=== PATIENT | male | born 1955 | race Two or more races ===

== ENCOUNTER 2021-03-30 10:50 | Emergency (ER) | payer MEDICARE, SELFPAY ==
--- NOTE | ~2021-03-30 | CT_ITS ---
EXAMINATION: CT ABDOMEN AND PELVIS WITHOUT CONTRAST CLINICAL INFORMATION: Bilateral flank pain COMPARISON: Ultrasound abdomen 01/08/2019 TECHNIQUE: Multidetector volumetric imaging was performed from the superior aspect of the liver through the pubic symphysis. Sagittal and coronal reformatted images were obtained on the technologist's workstation. This CT examination was performed using dose optimization techniques as appropriate, variously including the following: *Automated exposure control *Adjustment of mA and/or kV according to patient size (this includes techniques or standardized protocols for targeted exams where dose is matched to indication/reason for exam; i.e. extremities or head) *Use of iterative reconstruction technique DLP: 422 mGy-cm FINDINGS: LUNG BASES: The minimal linear atelectatic changes seen left lung base. The right lung base is unremarkable. The heart size is normal. LIVER, GALLBLADDER, AND BILIARY TREE: The liver is normal size with lobulated contour but normal density. No focal lesion or intrahepatic ductal dilatation seen. There are multiple radiopaque calculi seen in a small contracted gallbladder. PANCREAS: Unremarkable. SPLEEN: Unremarkable. ADRENAL GLANDS: Unremarkable. KIDNEYS AND URETERS: The kidneys are normal in size, shape, and attenuation. No hydronephrosis, hydroureter, or calculi seen. No perinephric stranding. BLADDER: There is mild anterior bladder wall thickening. No focal enhancing mass seen. GASTROINTESTINAL TRACT: Scattered stool and gas is seen throughout the colon without distention. The small bowel loops and appendix is normal caliber. The stomach is nondistended with mild thickened fall.. ABDOMINAL WALL: No significant hernia is appreciated. LYMPH NODES: There are small retroperitoneal lymph nodes visualized. VASCULAR: There is atherosclerotic calcification of abdominal aorta and common iliac vessels. PELVIC VISCERA: The prostate gland is normal size with central gland calcification. OSSEOUS STRUCTURES: No lytic or sclerotic process seen. There is an old healed fracture left L3 transverse process. CT/CT abdomen pelvis wo con IMPRESSION: No radiopaque urolith or hydroureteronephrosis. Mild constipation with normal appendix. Nonspecific mild anterior bladder wall thickening. Cholelithiasis with a contracted gallbladder. No wall thickening. Cirrhotic liver without focal lesion. This finding was seen on the previous ultrasound abdomen exam 01/08/2019
[2021-03-30 11:01] VITALS: BP 185/89; BP 200/80; PULSE 74; PULSE 80; RESP 18; O2SAT 100; O2SAT 98; BMI 22.4
--- NOTE | 2021-03-30 11:15 | ED_ITS ---
HPI - Back Pain/Injury General Chief Complaint: Back Pain/Injury Stated Complaint: LORENZO FLANK PAIN Time Seen by Provider: 03/30/21 10:56 Source: patient Mode of arrival: ambulatory Limitations: no limitations History of Present Illness HPI Narrative: Patient presents to the ED for bilateral flank pain for the past couple of days. patient states history of kidney stones in both kidneys and was supposed to have them removed months ago, but refused. Related Data Home Medications Medication Instructions Recorded Confirmed bupropion HCl 75 mg tablet 75 mg PO DAILY tab 06/26/20 06/26/20 gabapentin 600 mg tablet 600 mg PO TID 06/26/20 06/26/20 glipizide 5 mg tablet 5 mg PO DAILY 06/26/20 06/26/20 methadone 5 mg/5 mL oral solution 5 mg PO DAILY 06/26/20 06/26/20 mirtazapine 30 mg tablet 30 mg PO BEDTIME 06/26/20 06/26/20 omeprazole 20 mg capsule,delayed 40 mg PO ONCE cap 06/26/20 06/26/20 release Previous Rx's Medication Instructions Recorded prednisone 10 mg tablet 10 mg PO DAILY 9 Days #18 tab 06/26/20 tizanidine 4 mg tablet 4 mg PO TID PRN #270 tab 06/26/20 naloxegol 25 mg tablet (Movantik) 25 mg PO QAM #30 tab 07/24/20 blood sugar diagnostic (FreeStyle #100 ea 11/07/20 Lite Strips) albuterol sulfate 90 mcg/actuation 1 inh INHALATION QID PRN #18 g 12/12/20 aerosol inhaler (ProAir HFA) citalopram 40 mg tablet 40 mg PO DAILY #90 tab 12/22/20 nabumetone 750 mg tablet 750 mg PO BID PRN #60 tab 02/02/21 duloxetine 60 mg capsule,delayed 60 mg PO DAILY #90 cap 02/05/21 release trazodone 100 mg tablet 100 mg PO BEDTIME PRN #90 tab 02/17/21 metformin 500 mg tablet 500 mg PO BID #180 tab 02/21/21 gabapentin 800 mg tablet 800 mg PO TID #90 tab 03/27/21 Allergies Allergy/AdvReac Type Severity Reaction Status Date / Time Gadolinium-Containing Allergy Mild PATIENT Unverified 04/24/20 14:50 Contrast Medi DEVELOPED [Gadolinium-Containing HIVES Agents] IVP dye Allergy Unknown hives, rash Uncoded 05/24/18 00:00 Review of Systems Review of Systems: Yes all other systems are reviewed and are negative Constitutional: Constitutional: Reports as per HPI and Reports no additional constitutional complaints Eyes: Eyes: Reports as per HPI ENT: Reports system reviewed and no additional complaints, except as documented and Reports as per HPI Cardiovascular: Cardiovascular: Reports as per HPI and Reports no additional cardiovascular complaints Respiratory: Respiratory: Reports as per HPI and Reports no additional respiratory complaints Gastrointestinal: Gastrointestinal: Reports as per HPI and Reports no additional gastrointestinal complaints Comments: bilateral flank pain. Genitourinary: Genitourinary: Reports no additional male genitourinary complaints and Reports as per HPI Musculoskeletal: Musculoskeletal: Reports no additional musculoskeletal complaints and Reports as per HPI Neurologic: Reports system reviewed and no additional complaints, except as documented and Reports as per HPI Psychiatric: Psychiatric: Reports no additional psychiatric complaints and Reports as per HPI [facility] Past Medical History Medical History (Updated 03/30/21 @ 16:40 by JOSIE Guadalupe) Arthritis Diabetes mellitus Surgical History (Updated 06/10/20 @ 14:24 by TJ Reddy) History of colonoscopy History of lung surgery Family History Family History (Updated 06/10/20 @ 14:24 by TJ Reddy) Father Diabetes Mother Diabetes CVD (cardiovascular disease) Social History Social History Advance Directives: Yes Advance Directives Information Provided: Yes Advance Directives on File: No Physical Exam Vital Signs: Vital Signs: Last Vital Signs Pulse 74 03/30/21 11:01 Resp 18 03/30/21 11:01 BP 185/89 H 03/30/21 11:01 Pulse Ox 100 03/30/21 11:01 Body Mass Index 22.4 Const: General: cooperative, healthy appearing, comfortable, no acute distress, well developed, alert, awake and Physically active Orientation/consciousness: patient oriented x3 HENMT: Head: Yes normal to inspection, Yes No palpable skull fracture present, Yes normocephalic, Yes atraumatic and No abrasion Eyes: General: appearance normal, both eyes and all related structures Neck: Neck: Yes normal visual inspection, Yes full ROM, Yes no lymphadenopathy, Yes no meningeal signs, Yes trachea midline, Yes supple and No tender Chest: Chest palpation & inspection: normal inspection of the chest and normal palpation of entire chest wall Resp: Effort & Inspection: normal respiratory effort and able to speak in complete sentences Auscultation: clear to auscultation bilaterally Cardio: Jugular venous distension: no JVD Heart sounds: S1 normal heart sound present and S2 normal heart sound present GI: Inspection: Yes normal to inspection Palpation (GI): Soft to palpation, not firm, nontender, no guarding and not rigid : General: Yes CVA tenderness (bilateral) Back/Spine/Pelvis: Back: CVA tenderness (bilateral) Skin: General skin exam: no rashes or lesions noted and elasticity normal Neuro: General: patient oriented x3, gait normal, no meningeal signs and CN's II-XI intact bilaterally Cranial nerves: Yes CN's II-XII intact bilaterally Extrem: General: Yes normal to inspection and Yes full ROM Psych: Appearance: grossly normal, well kempt and not disheveled Course Course Course Narrative: Patient will have labs, UA, pain meds, and imaging Reevaluation(s) Reevaluation #1: Patient pulled out his IV and eloped before his CT scan results came back. Patient labs are at baseline. Patient was not in any distress during ED visit. CT scan shows gallstones without cholecystitis. Time: 16:54 MDM - Back Pain/Injury MDM Narrative Medical decision making narrative: Flank/back pain Lab Data Result diagrams: 03/30/21 11:46 03/30/21 11:46 Labs: Lab Results 03/30/21 03/30/21 03/30/21 Range/Units 11:46 11:46 12:31 WBC 7.2 (4.8-10.8) X10*3/uL RBC 3.90 L (4.60-5.80) X10*6/uL Hgb 13.1 L (14.0-18.0) g/dl Hct 36.9 L (42-52) % MCV 94.6 (80-98) fL MCH 33.6 H (27.0-33.0) pg MCHC 35.5 (31.0-36.0) g/dl RDW 11.6 (11.0-16.0) % Plt Count 109 L (160-400) X10*3/uL MPV 11.1 (9.4-12.4) fL Immature Gran % (Auto) 0.3 (0.0-0.4) % Neut % (Auto) 60.9 (45-73) % Lymph % (Auto) 29.9 (20-40) % [place] % (Auto) 7.3 (2-11) % Eos % (Auto) 1.2 (0-4) % Baso % (Auto) 0.4 (0-2) % Lymph # (Auto) 2.2 (1.2-4.9) X10*3/uL [place] # (Auto) 0.5 (0.1-1.2) X10*3/uL Eos # (Auto) 0.1 (0.0-0.4) X10*3/uL Baso # (Auto) 0.0 (0.0-0.2) X10*3/uL Abs Immat Gran (auto) 0.02 (0.00-0.03) X10*3/uL Absolute Neuts (auto) 4.4 (2.0-8.3) X10*3/uL Absolute Nucleated RBC 0.000 (0.0-0.012) X10*3/uL Nucleated RBC % (auto) 0.0 (0.0-0.2) /100WBC Smear Tech's Comments Not Reportable Sodium 139 (135-145) mmol/L Potassium 3.8 (3.3-5.1) mmol/L Chloride 106 (96-108) mmol/L Carbon Dioxide 25 (22-29) mmol/L Anion Gap 12 (12-20) BUN 9 (9-16) mg/dL Creatinine 0.95 (0.5-1.4) mg/dL Estim Creat Clear Calc 68.9 Estimated GFR > 60 Random Glucose 207 H (60-115) mg/dL Calcium 9.2 (8.4-10.2) mg/dL Total Bilirubin 0.5 (0.0-1.0) mg/dL Direct Bilirubin 0.2 (0.0-0.5) mg/dL AST 31 (5-37) U/L ALT 38 (0-40) U/L Alkaline Phosphatase 70 (39-117) U/L Total Protein 7.4 (6.5-8.0) g/dL Albumin 4.2 (3.5-5.0) g/dL Lipase 82 H (8-78) U/L Urine Color YELLOW Urine Appearance CLEAR Urine pH 7.5 (5.0-8.0) Ur Specific [place] 1.010 (1.005-1.025) Urine Protein NEG (NEG-TRACE) MG/DL Urine Glucose (UA) >=1000 H (NEG) MG/DL Urine Ketones NEG (NEG) MG/DL Urine Blood NEG (NEG) Urine Nitrite NEG (NEG) Ur Leukocyte Esterase NEG (NEG) Urine RBC 0-2 (0) /HPF Urine WBC 0 (0-4) /HPF Ur Squamous Epith Cells TRACE /LPF Urine Bacteria NONE /LPF Discharge Plan Discharge Clinical Impression: Bilateral flank pain, Back pain Patient Disposition: Elopement Prescriptions: No Action naloxegol [Movantik] 25 mg tablet 25 mg PO QAM Qty: 30 RF: 2 (DME) FreeStyle Lite Strips Strip See Rx Instructions .ROUTE .MEDSUPPLY Qty: 100 RF: 12 albuterol sulfate [ProAir HFA] 90 mcg/actuation HFA aerosol inhaler 1 inh inhalation QID PRN (Reason: shortness of breath or wheezing) Qty: 18 RF: 2 citalopram 40 mg tablet 40 mg PO DAILY Qty: 90 RF: 1 nabumetone 750 mg tablet 750 mg PO BID PRN (Reason: for pain) Qty: 60 RF: 2 duloxetine 60 mg capsule,delayed release(DR/EC) 60 mg PO DAILY Qty: 90 RF: 0 trazodone 100 mg tablet 100 mg PO BEDTIME PRN (Reason: for insomnia) Qty: 90 RF: 1 metformin 500 mg tablet 500 mg PO BID Qty: 180 RF: 0 gabapentin 800 mg tablet 800 mg PO TID Qty: 90 RF: 3 methadone 5 mg/5 mL solution 5 mg PO DAILY RF: 0 gabapentin 600 mg tablet 600 mg PO TID RF: 0 bupropion HCl 75 mg tablet 75 mg PO DAILY RF: 0 mirtazapine 30 mg tablet 30 mg PO BEDTIME RF: 0 glipizide 5 mg tablet 5 mg PO DAILY RF: 0 omeprazole 20 mg capsule,delayed release(DR/EC) 40 mg PO ONCE RF: 0 prednisone 10 mg tablet 10 mg PO DAILY 9 Days Qty: 18 RF: 0 tizanidine 4 mg tablet 4 mg PO TID PRN (Reason: for pain) Qty: 270 RF: 2 Discharge Date/Time: 03/30/21 16:17
[2021-03-30] MEDS: Ketorolac Tromethamine 15 MG/ML VIAL 30 MG IVPUSH (11:31)
[2021-03-30] MEDS: ondansetron HCL 4 MG/2 ML VIAL IVPUSH (11:31)
[2021-03-30] MEDS: Cyclobenzaprine HCl 10 MG TABLET PO (11:31)
[2021-03-30] MEDS: 0.9 % Sodium Chloride 1,000 ML 999 ML IV (11:31)
[2021-03-30 11:53] LABS: Basophils Percent Auto 0.4 % (0-2); Hemoglobin 13.1 g/dl (14.0-18.0); Imm Gran Abs Auto 0.02 X10*3/uL (0.00-0.03); Imm Gran Pct Auto 0.3 % (0.0-0.4); MANUAL DIFF FLAG SCAN; PLT CLUMP 1; SCAN SMEAR FLAG 1
[2021-03-30 11:55] LABS: Eosinophils Absolute Auto 0.1 X10*3/uL (0.0-0.4); Eosinophils Percent Auto 1.2 % (0-4); Hematocrit 36.9 % (42-52); Lymphocytes Absolute Auto 2.2 X10*3/uL (1.2-4.9); Lymphocytes Percent Auto 29.9 % (20-40); Mean Corpuscular HGB Conc 35.5 g/dl (31.0-36.0); Mean Corpuscular Hemoglobin 33.6 pg (27.0-33.0); Mean Corpuscular Volume 94.6 fL (80-98); Mean Platelet Volume 11.1 fL (9.4-12.4); Monocytes Absolute Auto 0.5 X10*3/uL (0.1-1.2); Monocytes Percent Auto 7.3 % (2-11); Neutrophils Absolute Auto 4.4 X10*3/uL (2.0-8.3); Neutrophils Percent Auto 60.9 % (45-73); Platelet Count 109 X10*3/uL (160-400); Red Cell Distribution Width 11.6 % (11.0-16.0); White Blood Count 7.2 X10*3/uL (4.8-10.8)
[2021-03-30 12:25] LABS: Alanine Aminotransferase 38 U/L (0-40); Albumin Level 4.2 g/dL (3.5-5.0); Alkaline Phosphatase 70 U/L (39-117); Anion Gap 12 (12-20); Aspartate Amino Transferase 31 U/L (5-37); Bilirubin Direct 0.2 mg/dL (0.0-0.5); Bilirubin Total 0.5 mg/dL (0.0-1.0); Blood Urea Nitrogen 9 mg/dL (9-16); Calcium 9.2 mg/dL (8.4-10.2); Carbon Dioxide 25 mmol/L (22-29); Chloride 106 mmol/L (96-108); Creatinine Clr Calc Pharmacy 68.9; Estimated Glomerular Filt Rate > 60; Glucose Random 207 mg/dL (60-115); Lipase 82 U/L (8-78); Potassium 3.8 mmol/L (3.3-5.1); Sodium 139 mmol/L (135-145); Total Protein 7.4 g/dL (6.5-8.0)
[2021-03-30 12:39] LABS: Glucose Urine UA >=1000 MG/DL (NEG); Leukocyte Esterase Urine NEG (NEG); Nitrite Urine NEG (NEG); PH 7.5 (5.0-8.0); Urine Blood NEG (NEG); Urine Ketones NEG (NEG); Urine Protein NEG (NEG-TRACE)
[2021-03-30 12:41] LABS: Appearance Urine CLEAR; Color Urine YELLOW
[2021-03-30] MEDS: Morphine Sulfate 2 MG/ML CARTRIDGE IVPUSH (12:47)
[2021-03-30 12:48] LABS: RBC Urine 0-2 /HPF (0); Squamous Epithelial Cell Urine TRACE /LPF; WBC Urine 0 /HPF (0-4)
--- NOTE | 2021-03-30 12:54 | PC.NURSE ---
PT AMBULATING AROUND BED AREA CONTINUALLY COMPLAINING OF SEVERE PAIN, REPORTS NO IMPROVEMENT IN SX S/P FIRST MEDICATION INTERVENTION, PT MEDICATED W/ MORPHINE PER EMAR. PT AWAITING MEDICATION EFFECTIVENESS. PT STS PAIN HAS BEEN ONGOING FOR MONTHS, THAT HE IS JUST NOT ABLE TO TAKE IT ANYMORE. PT AWAITING PROVIDER RE-EVAL AND DISPO.
[2021-03-30 14:00] VITALS: BP 161/79; PULSE 90; RESP 16; TEMP 36.7; O2SAT 97
[2021-03-30] MEDS: Nicotine Polacrilex 2 MG GUM BUCCAL (15:48)
--- NOTE | 2021-03-30 16:13 | PC.NURSE ---
PT APPROACHED THIS RN DEMANDING TO LEAVE, THIS RN ADVISED PT RESULTS ARE BACK AND PROVIDER IS ON WAY TO DISCUSS THEM WITH HIM, HE STATED HE DID NOT CARE AND PULLED IV OUT OF HIS ARM THIS RN WAS PREPARING ITEMS TO SAFELY REMOVE IV. PT WALKED INTO ANOTHER PATIENTS ROOM AND PROCEEDED TO HOLD ARM AT SIDE AND BLEED ON FLOOR. PT THEN ALLOWED THIS RN TO APPLY APPROPRIATE DRESSING AND STOP BLEEDING. PT THEN AMBULATED OUT OF ED WITH EVEN STEADY GAIT. PROVIDER AWARE OF ELOPEMENT.
== END 2021-03-30 16:17 | disposition left against medical advice (07) ==
LOC: HO.ED 11:07
PROVIDERS: Physician Assistant; Emergency Provider Emergency Medicine; PCP Internal Medicine
DX: R10.9 Unspecified abdominal pain (principal); M54.5 Low back pain; Z79.899 Other long term (current) drug therapy
CPT/HCPCS: 36415; 74176; 80053; 81001; 82248; 83690; 85025; 96361; 96374; 96375; 99284; J1885; J2270; J2405

== ENCOUNTER 2022-01-14 08:20 | Outpatient (REF) | payer MEDICARE, SELFPAY | END 2022-01-14 08:21 | disposition home or self-care (01) | LOC: HO.NEURO 08:20 | PROVIDERS: Visit Provider Internal Medicine | DX: Z13.89 Encounter for screening for other disorder (principal) ==

== ENCOUNTER 2022-09-04 07:09 | Outpatient (REF) | payer OTHER, SELFPAY ==
[2022-09-04 07:26] LABS: MANUAL DIFF FLAG NO
[2022-09-04 08:13] LABS: Basophils Percent Auto 0.7 % (0-2); Eosinophils Absolute Auto 0.1 X10*3/uL (0.0-0.4); Eosinophils Percent Auto 1.7 % (0-4); Hematocrit 40.6 % (42.0-52.0); Hemoglobin 14.1 g/dl (14.0-18.0); Imm Gran Abs Auto 0.02 X10*3/uL (0.00-0.03); Imm Gran Pct Auto 0.3 % (0.0-0.4); Lymphocytes Absolute Auto 1.9 X10*3/uL (1.2-4.9); Mean Corpuscular HGB Conc 34.7 g/dl (31.0-36.0); Mean Corpuscular Hemoglobin 31.9 pg (27.0-33.0); Mean Corpuscular Volume 91.9 fL (80.0-98.0); Mean Platelet Volume 11.1 fL (9.4-12.4); Monocytes Absolute Auto 0.6 X10*3/uL (0.1-1.2); Monocytes Percent Auto 10.5 % (2-11); Neutrophils Absolute Auto 3.1 x10*3/uL (2.0-8.3); Neutrophils Percent Auto 53.8 % (45-73); Platelet Count 111 X10*3/uL (160-400); Red Blood Count 4.42 X10*6/uL (4.60-5.80); White Blood Count 5.8 X10*3/uL (4.8-10.8)
[2022-09-04 08:18] LABS: Appearance Urine Clear; Color Urine Yellow; Glucose Urine UA Negative (Negative); Leukocyte Esterase Urine Negative (Negative); Nitrite Urine Negative (Negative); Urine Blood Negative (Negative); Urine Ketones Negative (Negative); Urine Protein Negative (Neg-Trace)
[2022-09-04 09:02] LABS: Alanine Aminotransferase 37 U/L (0-40); Albumin Level 4.4 g/dL (3.5-5.0); Alkaline Phosphatase 65 U/L (39-117); Anion Gap 11 (12-20); Aspartate Amino Transferase 27 U/L (5-37); Bilirubin Total 0.6 mg/dL (0.0-1.0); Blood Urea Nitrogen 12 mg/dL (9-16); C Reactive Protein 0.14 mg/dL (< or = 0.50); Calcium 9.2 mg/dL (8.4-10.2); Carbon Dioxide 25 mmol/L (22-29); Chloride 106 mmol/L (96-108); Cholesterol 248 mg/dL; Estimated Glomerular Filt Rate > 60; Glucose Fasting 144 mg/dL (60-99); HDL Cholesterol 36 mg/dL; LDL Cholesterol Calculated 184 mg/dl; Sodium 138 mmol/L (135-145); Total Protein 7.2 g/dL (6.5-8.0); Triglycerides 143 mg/dL
[2022-09-04 09:13] LABS: Erythrocyte Sedimentation Rate 7 MM/HR (0-15)
[2022-09-04 09:19] LABS: TSH reflex Free T4 1.83 uIU/mL (0.32-4.0); Vitamin D 25-OH Total 23.2 ng/mL (>30)
[2022-09-04 09:20] LABS: Microalbum/Creatinine Ratio Ur 9.5 ug/mg cr
[2022-09-04 09:34] LABS: Folate 13.7 ng/mL (> or = 4.0); Vitamin B12 669 pg/mL (200-900)
[2022-09-07 20:58] LABS: HCV Log PCR <1.18 NOT DETECTED Log IU/mL (NOT DETECTED); HepC Viral Load <15 NOT DETECTED IU/mL (NOT DETECTED)
== END 2022-09-04 07:10 | disposition home or self-care (01) ==
LOC: HO.LAB 07:09
PROVIDERS: PCP Internal Medicine; Visit Provider Internal Medicine
DX: E55.9 Vitamin D deficiency, unspecified (principal); G62.9 Polyneuropathy, unspecified; M19.90 Unspecified osteoarthritis, unspecified site; E11.9 Type 2 diabetes mellitus without complications; E78.00 Pure hypercholesterolemia, unspecified; R30.0 Dysuria; E53.8 Deficiency of other specified B group vitamins; I10 Essential (primary) hypertension; Z86.19 Personal history of other infectious and parasitic diseases
CPT/HCPCS: 36415; 80053; 80061; 81003; 82043; 82306; 82607; 82746; 84443; 85025; 85652; 86140; 87522

== ENCOUNTER 2022-09-11 10:56 | Outpatient (REF) | payer OTHER, SELFPAY ==
--- NOTE | ~2022-09-11 | XR_ITS ---
EXAMINATION: XR CHEST 2 VIEWS CLINICAL INFORMATION: COPD. COMPARISON: CT chest dated 09/02/2018; chest radiographs dated 08/23/2018 and 08/27/2015. TECHNIQUE: Frontal and lateral views of the chest were obtained. FINDINGS: The heart, great vessels, pulmonary vasculature and mediastinum are normal. The lungs show no focal infiltrate, effusion or pneumothorax. There is stable mild elevation of the right hemidiaphragm. There is no acute osseous abnormality. XR/XR chest 2V IMPRESSION: No active cardiopulmonary disease.
== END 2022-09-11 10:57 | disposition home or self-care (01) ==
LOC: HO.XRAY 10:56
PROVIDERS: PCP Internal Medicine; Visit Provider Internal Medicine
DX: J44.9 Chronic obstructive pulmonary disease, unspecified (principal); F17.200 Nicotine dependence, unspecified, uncomplicated
CPT/HCPCS: 71046

== ENCOUNTER 2023-07-11 15:25 | Outpatient (AMB) | payer OTHER, SELFPAY ==
--- NOTE | 2023-07-11 15:28 | A.OFFPC_ITS ---
Vital Signs 07/11/23 15:29 Height 5 ft 4 in Weight 148 lb 2 oz BMI 25.4 BP 122/80 Blood Pressure Location Lt brachial Position Sitting Pulse 78 Pulse Source Pulse Oximeter Pulse Oximetry (%) 98 Oxygen Delivery Method Room Air Intake Visit Reasons: f/u discuss medical issues Security System Technician Required: No Accompanied by: Self / Same As Patient Allergies Gadolinium-Containing Contrast Medi [Gadolinium-Containing Agents] Allergy (Mild, Verified 07/11/23 15:48) PATIENT DEVELOPED HIVES IVP dye Allergy (Unknown, Uncoded 07/11/23 15:48) hives, rash Medication List - Last Reconciled 07/11/23 by Leander Stokes MD albuterol sulfate 90 mcg/actuation 1 puff PO QID PRN atorvastatin 10 mg PO BEDTIME 90 days blood sugar diagnostic ([employer] Ultra Test strips) test daily blood-glucose meter ([facility] Ultra2 Meter) test once daily gabapentin 600 mg PO TID 30 days lancets ([employer] UltraSoft 2 Lancet) test once daily metformin 500 mg PO BID 90 days nabumetone 500 mg PO BID 30 days naloxegol (Movantik) 25 mg PO QAM PRN nicotine 1 patch transdermal DAILY 7 days nicotine 1 patch transdermal DAILY 7 days Paxlovid 300 mg (150 mg x 2)-100 mg (nirmatrelvir-ritonavir) take TWO 150 mg tablets of nirmatrelvir with ONE 100 mg tablet of ritonavir twice daily for 5 days PO NS trazodone 100 mg PO BEDTIME PRN Tobacco use date assessed: 07/11/23 Fall risk assessment: 1 Fall in past year Last assessed Fall Risk: 07/11/23 Dental Screening Dental Screen Date: 07/11/23 Did you have a dental visit in the last 12 months?: Yes Did you have a dental problem in the last 6 months where you did not have access to dental care?: No Was dental information given to patient?: Patient has dentist HPI f/u discuss medical issues HPI Details Patient comes in today for his follow up visit States that he continues to experience a lot of anxiety and feels that this is getting worse lately Still has a chronic cough and would really like to quit smoking now and is looking for nicotine patch Rx to help him quit although he is concerned that his anxiety will get worse while he is trying to quit and make it more difficult for him to quit smoking successfully States that he is currently only smoking about 3 to 4 sticks a day He is also getting concerned about his diabetes - states that he used to check his blood sugar 4 or more times a day (notes that he often gets high blood sugar readings) and is currently only on Metformin for his diabetes He is frustrated that since he turned 67 y/o recently and switched insurance, his insurance is no longer allowing him to check his blood sugar often and is now limited to just one time a day Would like to know if we can order for him to allow him to check his blood sugar up to 3 to 4 times a day He denies any headaches or dizziness Denies any chest pains, no increased SOB although he reports (+) recurrent/frequent coughing, as mentioned above No nausea/vomiting, no abdominal pain No change in bowel habits noted Had not had any follow up labs done recently [facility] Medical History Pure hypercholesterolemia Overweight (BMI 25.0-29.9) Constipation History of substance abuse Insomnia Depression GERD (gastroesophageal reflux disease) COPD (chronic obstructive pulmonary disease) Neuropathy Subdural hematoma (~05/2021) Smoker Bilateral flank pain Diabetes mellitus Arthritis Surgical History History of [place]zena hole surgery (~06/01/21) History of colonoscopy History of lung surgery Family History Father Diabetes Mother Diabetes CVD (cardiovascular disease) Social History Housing: Apartment Alcohol intake: former Patient Tobacco Use Status: Current everyday Tobacco user Tobacco use type: Cigarette Cigarettes Per Day: 3 e-Cigarette/Vaping Use: Never Used Second Hand Smoke Exposure: Yes service: No Current occupational status: disabled Cognitive needs: No Hearing needs: No Vision needs: Yes Questionnaire PHQ-9 Over the last 2 weeks, how often have you been bothered by any of the following problems? 1. Little interest or pleasure in doing things: not at all 2. Feeling down, depressed, or hopeless: not at all 3. Trouble falling or staying asleep, or sleeping too much: not at all 4. Feeling tired or having little energy: not at all 5. Poor appetite or overeating: not at all 6. Feeling bad about yourself - or that you are a failure or have let yourself or your family down: not at all 7. Trouble concentrating on things, such as reading the newspaper or watching television: not at all 8. Moving or speaking so slowly that other people could have noticed. Or the opposite - being so fidgety or restless that you have been moving around a lot more than usual: not at all 9. Thoughts that you would be better off or of hurting yourself in some way: not at all Total score: 0 Depression Screening Interpretation: Negative Depression Screening Done: Yes 39614 - PHQ-9 Billing: Yes Source: Developed by Drs. Ethan Castañeda, Zully Hartman, Dillon Corrales and colleagues, with an educational rivas from [employer]. Thrive Questionnaire Date Thrive assessed: 07/11/23 I am a: Patient What is your living situation today?: I have a steady place to live Within the past 12 months, did the food you bought not last and you didn't have the money to get more?: Never true Within the past 12 months, did you worry whether your food would run out before you got money to buy more?: Never true Do you have trouble paying for medicines?: No Do you have trouble getting transportation to medical appointments?: No Do you have trouble paying your heating and electricity bill?: No Do you have trouble taking care of your child, family member or friend?: No Do you have trouble with day-to-day activities such as bathing, preparing meals, shopping, managing finances, etc.?: No Are you currently unemployed and looking for a job?: No Are you interested in more education?: No Please select the resources that you would like help with: None Currently or been in a relationship where the following occur: no concerns reported AUDIT C Alcohol Use Questionnaire (AUDIT-C) 1. How often do you have a drink containing alcohol?: Never 2. How many drinks containing alcohol do you have on a typical day when you are drinking?: 1 or 2 3. How often do you have six or more drinks on one occasion?: Never Total Score: 0 Score Reviewed/Action Taken: Yes LEONIE-7 AMB Questionnaire LEONIE-7 Date LEONIE - 7 assessed: 07/11/23 Feeling nervous, anxious, or on edge: 0 = Not at all Not being able to stop or control worryin = Not at all Worrying too much about different things: 0 = Not at all Trouble relaxin = Not at all Being so restless that it is hard to sit still: 0 = Not at all Becoming easily annoyed or irritable: 0 = Not at all Feeling afraid as if something awful might happen: 0 = Not at all Total LEONIE-7 score (0-4 normal; 5-9 mild; 10-14 moderate; 15-21 severe): 0 Source: Developed by Drs. Ethan Castañeda, Zully Hartman, Dillon Corrales and colleagues, with an educational rivas from [employer]. Review of Systems Const Denies chills, Denies fatigue, Denies fever(s) and Denies headache(s) ENT Denies dysphagia, Denies dizziness, Denies otalgia, Denies headache(s), Denies odynophagia and Denies sore throat Card Denies chest pain, Denies palpitations and Denies dyspnea Resp Denies chest congestion, Reports cough (recurrent; coughs up thick whitish phlegm at times), Denies dyspnea and Denies wheezing GI Denies abdominal pain, Denies constipation, Denies dysphagia, Denies heartburn, Denies diarrhea, Denies nausea, Denies odynophagia and Denies vomiting Denies dysuria, Denies nocturia and Denies urinary frequency Musc Reports back pain, Reports arthralgias (multiple joints, including both hips, right shoulder and right foot), Reports numbness and Reports tingling (occasional) Skin/Breast Denies rash Neuro Details: increasing pain over both lower extremities Denies dizziness, Denies headache(s), Reports numbness, Reports tingling (occasional) and Reports paresthesias (over both feet, increasing) Psych Reports anxiety (increasing lately) Endo Denies fatigue and Denies palpitations Aller/Immun Denies wheezing Physical exam (Primary Care) Vital Signs: Last Vital Signs Pulse 78 07/11/23 15:29 BP 122/80 07/11/23 15:29 Pulse Ox 98 07/11/23 15:29 Oxygen Delivery Method Room Air 07/11/23 15:29 BMI result Body Mass Index 25.4 Tobacco/Smoking Status: Tobacco use Status Tobacco use date assessed 07/11/23 07/11/23 15:30 Patient Tobacco Use Status Current everyday Tobacco 07/11/23 15:30 Tobacco use type Cigarette 07/11/23 15:30 e-Cigarette/Vaping Use Never Used 07/11/23 15:30 PHQ-9: PHQ-9 Score PHQ-9: Total score 0 07/11/23 15:49 Depression Screening Interpretation: Negative Thrive Assessment: Date of Thrive Assessment Date Thrive assessed 07/11/23 07/11/23 15:30 Currently or been in a relationship where the following occur: no concerns reported Const General: no acute distress and alert HENMT Ears: TM's normal bilaterally and EAC's normal Throat: Yes posterior oropharynx normal and Yes tonsils normal (no TP congestion) Neck Neck: Yes no lymphadenopathy and Yes supple Resp Auscultation: no crackles, no rales, rhonchi (scattered), no wheezes and diminished lung sounds (slightly) Cardio Rate: regular rate Rhythm: regular rhythm Heart sounds: no murmurs GI Palpation (GI): Soft to palpation and nontender Auscultation: normal bowel sounds Extrem General: Yes no clubbing, cyanosis or edema Right upper extremity: shoulder/upper arm Details: tenderness Location: of the A-C joint Right lower extremity: hip/thigh Details: tenderness Location: of the hip Left lower extremity: hip/thigh Details: tenderness Location: of the hip Results AMB Hemoglobin A1c AMB Hemoglobin A1c 7.4 % Last Edit by Ric Pham on 07/11/23 15:57 Assessment and Plan Assessment & Plan (1) Diabetes mellitus: Code(s): E11.9 - Type 2 diabetes mellitus without complications Qualifiers: Diabetes mellitus complication status: without complication Diabetes mellitus long term care administrator insulin use: without residential use Diabetes mellitus type: type 2 Qualified Code(s): E11.9 - Type 2 diabetes mellitus without complications Plan: In-office HgbA1c done today is at 7.4% (was at 7.1% earlier this year and at 7.4% as well last year) - goal is <7.0% Reinforced diabetic diet Continue Metformin 500 mg BID; will start additionally on Januvia 100 mg QD Patient is advised that if he is not on insulin and he does not have labile blood sugars reading or completely uncontrolled DM, no insurance (commercial or otherwise) will allow him to check his blood sugar more than once a day and that there is really no need for him to be checking his blood sugar that often unless he has any of the conditions mentioned here (2) Pure hypercholesterolemia: Code(s): E78.00 - Pure hypercholesterolemia, unspecified Plan: He has not had any follow up labs done in a while so will send him for follow up fasting labs RAYMOND Reinforced low cholesterol diet Continue Atorvastatin 10 mg QD (3) Neuropathy: Code(s): G62.9 - Polyneuropathy, unspecified Plan: NCV & EMG done back on 12/29/2017 revealed (+) mild sensory and motor peripheral neuropathy; was sent for repeat studies at his last visit but he canceled his appointment as he did not want to get this repeated Continue Gabapentin 600 mg TID Was sent for some labs previously for further evaluation - results are normal (B12, ESR, CRP, TSH) Will consider repeating NCV & EMG if symptoms persist or get worse (4) Multiple joint pain: Code(s): M25.50 - Pain in unspecified joint Plan: Continue Nabumetone 500 mg BID PRN Was referred to rheumatology for further evaluation and management and he was scheduled to be seen for initial visit back in October 2022 but it appears that he never went for his appt Will revisit rheumatology referral later on but he wants to concentrate on quitting smoking first and get his diabetes under control (5) COPD (chronic obstructive pulmonary disease): Code(s): J44.9 - Chronic obstructive pulmonary disease, unspecified Qualifiers: COPD type: unspecified COPD Qualified Code(s): J44.9 - Chronic obstructive pulmonary disease, unspecified Plan: Continue Albuterol HFA 2 inhalations every 6 hours as needed Per request, will send him for chest x-rays for further evaluation (6) Subdural hematoma: Onset Date: ~05/2021 Comment: right-sided; S/P [place] hole drainage by Dr. Elmore on 06/01/2021 Code(s): S06.5X9A - Traumatic subdural hemorrhage with loss of consciousness of unspecified duration, initial encounter Plan: Resolved and currently has very little residual neurologic deficits (7) History of hepatitis C: Comment: S/P treatment Code(s): Z86.19 - Personal history of other infectious and parasitic diseases Plan: S/P Tx Hepatitis C viral load rechecked a couple of weeks ago came out negative (8) Constipation: Code(s): K59.00 - Constipation, unspecified Qualifiers: Constipation type: unspecified constipation type Qualified Code(s): K59.00 - Constipation, unspecified Plan: Encouraged increased oral fluids and dietary fiber Continue Movantik 25 mg QD PRN (9) Insomnia: Code(s): G47.00 - Insomnia, unspecified Qualifiers: Insomnia type: unspecified Qualified Code(s): G47.00 - Insomnia, unspecified Plan: Sleep hygiene reinforced Continue Trazodone 100 mg Q HS PRN (10) Anxiety: Code(s): F41.9 - Anxiety disorder, unspecified Plan: Will start him on Hydroxyzine 25 mg TID PRN to help with his anxiety, which appears to be increasing lately (11) Smoker: Code(s): F17.200 - Nicotine dependence, unspecified, uncomplicated Plan: Couseled again on smoking cessation Per request, will send him for repeat chest x-rays Will also start him on Nicotine 7 mg patches QD to help him quit smoking (12) Overweight (BMI 25.0-29.9): Code(s): E66.3 - Overweight Plan: Reinforced diet/exercise as tolerated/lose weight Plan Follow up in 3 months Orders: Orders Lipid Panel Today E78.00 - Pure hypercholesterolemia, unspecified UA CC w/rflx Micro + Cult Today R30.0 - Dysuria XR chest 2V Today J44.9 - Chronic obstructive pulmonary disease, unspecified, R05.9 - Cough, unspecified AMB Hemoglobin A1c Today Z13.9 - Encounter for screening, unspecified Complete Blood Count Auto Diff Today E11.9 - Type 2 diabetes mellitus without complications Comprehensive [place]. Panel Fast Today E78.00 - Pure hypercholesterolemia, unspecified Microalbumin, Random (w Creat) Today E11.9 - Type 2 diabetes mellitus without co mplications TSH reflex Free T4 Today E78.00 - Pure hypercholesterolemia, unspecified Vitamin D 25-OH Total Today E55.9 - Vitamin D deficiency, unspecified Medications: New sitagliptin phosphate (Januvia) 100 mg PO DAILY 30 days 30 tabs 3RF nicotine 1 patch transdermal Q24H 28 days 28 ea 3RF F17.200 - Nicotine dependence, unspecified, uncomplicated hydroxyzine HCl 25 mg PO TID 30 days PRN 90 tabs 2RF anxiety Coding Level of Care Code Est Pt Level 4 (37492) Diagnoses Type 2 diabetes mellitus without complication, without long-term current use of insulin E11.9 Diabetes mellitus complication status: without complication Diabetes mellitus residential insulin use: without long term care administrator use Diabetes mellitus type: type 2 Pure hypercholesterolemia E78.00 Neuropathy G62.9 Multiple joint pain M25.50 Chronic obstructive pulmonary disease, unspecified COPD type J44.9 COPD type: unspecified COPD Subdural hematoma S06.5X9A History of hepatitis C Z86.19 Constipation, unspecified constipation type K59.00 Constipation type: unspecified constipation type Insomnia, unspecified type G47.00 Insomnia type: unspecified Anxiety F41.9 Smoker F17.200 Overweight (BMI 25.0-29.9) E66.3
[2023-07-11 15:29] VITALS: BP 122/80; PULSE 78; O2SAT 98; BMI 25.4
== END 2023-07-11 16:10 | disposition home or self-care (01) ==
PROVIDERS: PCP Internal Medicine; Visit Provider Internal Medicine
DX: E11.9 Type 2 diabetes mellitus without complications (principal)
CPT/HCPCS: 83036; 99214

== ENCOUNTER 2023-08-06 09:29 | Outpatient (REF) | payer OTHER, SELFPAY ==
--- NOTE | ~2023-08-06 | XR_ITS ---
EXAMINATION: XR CHEST CLINICAL INFORMATION: Cough unspecified. COMPARISON: 09/11/2022, 08/29/2015. TECHNIQUE: 2 views of the chest were obtained. FINDINGS: There is no gross pneumothorax. Mild dextroscoliosis with multilevel degenerative changes. Heart size is normal. Redemonstration of left costophrenic angle blunting possibly representing trace pleural effusion versus pleural thickening. Increased right basilar opacity may represent pneumonia. XR/XR chest 2V IMPRESSION: Increased right basilar opacity may represent pneumonia. Recommend follow-up imaging in 4-6 weeks to confirm resolution and exclude underlying pathology. This study was presented today August 2023 at 9:30 AM for interpretation. PSA staff will provide results to referring provider at this time.
[2023-08-06 09:40] LABS: MANUAL DIFF FLAG NO
[2023-08-06 10:15] LABS: Basophils Percent Auto 0.4 % (0-2); Eosinophils Absolute Auto 0.2 X10*3/uL (0.0-0.4); Eosinophils Percent Auto 2.8 % (0-4); Hematocrit 42.3 % (42.0-52.0); Hemoglobin 14.6 g/dl (14.0-18.0); Imm Gran Abs Auto 0.02 X10*3/uL (0.00-0.03); Imm Gran Pct Auto 0.4 % (0.0-0.4); Lymphocytes Absolute Auto 2.1 X10*3/uL (1.2-4.9); Lymphocytes Percent Auto 38.5 % (20-40); Mean Corpuscular HGB Conc 34.5 g/dl (31.0-36.0); Mean Corpuscular Hemoglobin 32.2 pg (27.0-33.0); Mean Corpuscular Volume 93.4 fL (80.0-98.0); Mean Platelet Volume 11.3 fL (9.4-12.4); Monocytes Absolute Auto 0.6 X10*3/uL (0.1-1.2); Neutrophils Absolute Auto 2.5 x10*3/uL (2.0-8.3); Neutrophils Percent Auto 46.9 % (45-73); Platelet Count 106 X10*3/uL (160-400); Red Blood Count 4.53 X10*6/uL (4.60-5.80); White Blood Count 5.4 X10*3/uL (4.8-10.8)
[2023-08-06 10:31] LABS: Appearance Urine Clear; Color Urine Yellow; Glucose Urine UA Negative (Negative); Leukocyte Esterase Urine Negative (Negative); Nitrite Urine Negative (Negative); PH 6.5 (5.0-9.0); Urine Blood Negative (Negative); Urine Ketones Negative (Negative); Urine Protein Negative (Neg-Trace)
[2023-08-06 10:32] LABS: Alanine Aminotransferase 45 U/L (0-40); Albumin Level 4.5 g/dL (3.5-5.0); Alkaline Phosphatase 68 U/L (39-117); Anion Gap 12 (12-20); Aspartate Amino Transferase 35 U/L (5-37); Bilirubin Total 0.4 mg/dL (0.0-1.0); Blood Urea Nitrogen 11 mg/dL (9-16); Calcium 9.5 mg/dL (8.4-10.2); Carbon Dioxide 26 mmol/L (22-29); Chloride 105 mmol/L (96-108); Cholesterol 243 mg/dL (<200); Estimated Glomerular Filt Rate > 60; Glucose Fasting 130 mg/dL (60-99); HDL Cholesterol 40 mg/dL (>40); LDL Cholesterol Calculated 180 mg/dL (<100); Potassium 4.4 mmol/L (3.3-5.1); Sodium 139 mmol/L (135-145); Total Protein 7.8 g/dL (6.5-8.0); Triglycerides 118 mg/dL (<150)
[2023-08-06 10:49] LABS: TSH reflex Free T4 0.96 uIU/mL (0.32-4.0); Vitamin D 25-OH Total 29.5 ng/mL (>30)
[2023-08-06 10:51] LABS: Creatinine Urine 136.34 mg/dL; Microalbum/Creatinine Ratio Ur 5.1 ug/mg cr (<30)
== END 2023-08-06 09:30 | disposition home or self-care (01) ==
LOC: HO.LAB 09:29
PROVIDERS: PCP Internal Medicine; Visit Provider Internal Medicine
DX: R05.9 Cough, unspecified (principal); J44.9 Chronic obstructive pulmonary disease, unspecified; E11.9 Type 2 diabetes mellitus without complications; E78.00 Pure hypercholesterolemia, unspecified; R30.0 Dysuria; E55.9 Vitamin D deficiency, unspecified
CPT/HCPCS: 36415; 71046; 80053; 80061; 81003; 82043; 82306; 82570; 84443; 85025

== ENCOUNTER 2023-09-02 14:01 | Outpatient (REF) | payer OTHER, SELFPAY ==
--- NOTE | ~2023-09-02 | XR_ITS ---
EXAMINATION: XR CHEST CLINICAL INFORMATION: Follow up 4 weeks lung field. COMPARISON: Chest radiographs of 08/06/2023, 09/11/2022, 08/23/2018 and dating back to 08/29/2015. Chest CT 09/02/2018. TECHNIQUE: 2 views of the chest were obtained. FINDINGS: There is no gross pneumothorax. Heart size is normal. Unchanged left costophrenic angle blunting. Heart size is normal. Dextroscoliosis with multilevel degenerative changes in the thoracic spine. Mild right basilar opacity appears increased when compared with chest radiographs dating back to 08/29/2015. CT scan without intravenous contrast recommended for further evaluation. XR/XR chest 2V IMPRESSION: Mild right basilar opacity appears increased when compared with chest radiographs dating back to 08/29/2015. CT scan without intravenous contrast recommended for further evaluation.
== END 2023-09-02 14:02 | disposition home or self-care (01) ==
LOC: HO.XRAY 14:01
PROVIDERS: PCP Internal Medicine; Visit Provider Internal Medicine
DX: R91.8 Other nonspecific abnormal finding of lung field (principal)
CPT/HCPCS: 71046

== ENCOUNTER 2023-11-24 11:49 | Outpatient (AMB) | payer MEDICARE, MEDICAID, SELFPAY ==
[2023-11-24 11:59] VITALS: BP 138/62; PULSE 74; O2SAT 96; BMI 27.3
--- NOTE | 2023-11-24 11:59 | A.OFFPC_ITS ---
Vital Signs 11/24/23 11:59 Height 5 ft 2 in Weight 149 lb 8 oz BMI 27.3 BP 138/62 Blood Pressure Location Lt brachial Position Sitting Pulse 74 Pulse Source Pulse Oximeter Pulse Oximetry (%) 96 Oxygen Delivery Method Room Air Intake Visit Reasons: DM, hyperlipidemia, anxiety Bag Filler Required: No Accompanied by: Self / Same As Patient Allergies Gadolinium-Containing Contrast Medi [Gadolinium-Containing Agents] Allergy (Mild, Verified 11/24/23 12:33) PATIENT DEVELOPED HIVES atorvastatin Adverse Reaction (Intermediate, Verified 11/24/23 12:40) severe weakness IVP dye Allergy (Unknown, Uncoded 11/24/23 12:33) hives, rash Medication List - Last Reconciled 11/24/23 by Leander Stokes MD albuterol sulfate 90 mcg/actuation 1 puff PO QID PRN blood sugar diagnostic (OneTouch Ultra Test strips) test daily blood sugar diagnostic (FreeStyle Lite Strips) As directed Once per day blood-glucose meter (SimphaticTouch Ultra2 Meter) test once daily gabapentin 600 mg PO TID 30 days hydroxyzine HCl 25 mg PO TID PRN 30 days lancets (OneTouch UltraSoft 2 Lancet) test once daily lancets (FreeStyle Lancets) As directed once per day lancets (TRUEplus Lancets) As directed metformin 500 mg PO BID 90 days nabumetone 500 mg PO BID 30 days naloxegol (Movantik) 25 mg PO QAM PRN nicotine 1 patch transdermal Q24H 28 days sitagliptin phosphate (Januvia) 100 mg PO DAILY 30 days trazodone 100 mg PO BEDTIME PRN Tobacco use date assessed: 11/24/23 Fall risk assessment: No Falls in past year Last assessed Fall Risk: 11/24/23 Dental Screening Dental Screen Date: 11/24/23 Did you have a dental visit in the last 12 months?: Yes Did you have a dental problem in the last 6 months where you did not have access to dental care?: No Was dental information given to patient?: Patient has dentist HPI DM, hyperlipidemia, anxiety HPI Details Patient comes in today for his follow up visit States that he has been experiencing increased pain over his left shoulder for the past few weeks Does not recall any recent injury or trauma to his shoulder Has also been experiencing recurrent muscle cramping and pain lately, especially involving his lower extremities and notes that these feel worse at night Also feels that the right side of his stomach swells up at times and he is concerned that this may be due to his liver swelling up States that he could not tolerate his previous Rx for Atorvastatin - recalls that he was experiencing increased generalized weakness when he was on the Rx and that his symptoms subsided once he stopped taking it He denies any headaches or dizziness Denies any chest pains, no SOB No nausea/vomiting, no abdominal pain No change in bowel habits noted Needs a few of his Rx refilled He would also like to know how he did on his labs done back in July 2023 [facility] Medical History Pure hypercholesterolemia Overweight (BMI 25.0-29.9) Constipation History of substance abuse Insomnia Depression GERD (gastroesophageal reflux disease) COPD (chronic obstructive pulmonary disease) Neuropathy Subdural hematoma (~05/2021) Smoker Bilateral flank pain Diabetes mellitus Arthritis Surgical History History of marzena hole surgery (~06/01/21) History of colonoscopy History of lung surgery Family History Father Diabetes Mother Diabetes CVD (cardiovascular disease) Social History Housing: Apartment Alcohol intake: former Patient Tobacco Use Status: Current everyday Tobacco user Tobacco use type: Cigarette Cigarettes Per Day: 3 e-Cigarette/Vaping Use: Never Used Second Hand Smoke Exposure: Yes service: No Current occupational status: disabled Cognitive needs: No Hearing needs: No Vision needs: Yes Questionnaire PHQ-9 Over the last 2 weeks, how often have you been bothered by any of the following problems? 1. Little interest or pleasure in doing things: not at all 2. Feeling down, depressed, or hopeless: not at all 3. Trouble falling or staying asleep, or sleeping too much: not at all 4. Feeling tired or having little energy: not at all 5. Poor appetite or overeating: not at all 6. Feeling bad about yourself - or that you are a failure or have let yourself or your family down: not at all 7. Trouble concentrating on things, such as reading the newspaper or watching television: not at all 8. Moving or speaking so slowly that other people could have noticed. Or the opposite - being so fidgety or restless that you have been moving around a lot more than usual: not at all 9. Thoughts that you would be better off or of hurting yourself in some way: not at all Total score: 0 Depression Screening Interpretation: Negative Depression Screening Done: Yes [id number] - PHQ-9 Billing: Yes Source: Developed by Drs. Ethan Castañeda, Zully Hartman, Dillon Corrales and colleagues, with an educational rivas from [employer]. Thrive Questionnaire Date Thrive assessed: 11/24/23 I am a: Patient What is your living situation today?: I have a steady place to live Within the past 12 months, did the food you bought not last and you didn't have the money to get more?: Never true Within the past 12 months, did you worry whether your food would run out before you got money to buy more?: Never true Do you have trouble paying for medicines?: No Do you have trouble getting transportation to medical appointments?: No Do you have trouble paying your heating and electricity bill?: No Do you have trouble taking care of your child, family member or friend?: No Do you have trouble with day-to-day activities such as bathing, preparing meals, shopping, managing finances, etc.?: No Are you currently unemployed and looking for a job?: No Are you interested in more education?: No Please select the resources that you would like help with: None Currently or been in a relationship where the following occur: no concerns reported THRIVE Score: 0 AUDIT C Alcohol Use Questionnaire (AUDIT-C) 1. How often do you have a drink containing alcohol?: Never 2. How many drinks containing alcohol do you have on a typical day when you are drinking?: 1 or 2 3. How often do you have six or more drinks on one occasion?: Never Total Score: 0 Score Reviewed/Action Taken: Yes LEONIE-7 AMB Questionnaire LEONIE-7 Date LEONIE - 7 assessed: 11/24/23 Feeling nervous, anxious, or on edge: 1 = Several days Not being able to stop or control worryin = More than half the days Worrying too much about different things: 2 = More than half the days Trouble relaxin = Nearly every day Being so restless that it is hard to sit still: 0 = Not at all Becoming easily annoyed or irritable: 0 = Not at all Feeling afraid as if something awful might happen: 1 = Several days Total LEONIE-7 score (0-4 normal; 5-9 mild; 10-14 moderate; 15-21 severe): 9 Source: Developed by Drs. Ethan Castañeda, Zully Hartman, Dillon Corrales and colleagues, with an educational rivas from [employer]. LEONIE-7 Assessment Billing LEONIE-7 Assessment Tool: LEONIE-7 Assessment 08860 Review of Systems Const Denies chills, Denies fatigue, Denies fever(s) and Denies headache(s) ENT Denies dysphagia, Denies dizziness, Denies otalgia, Denies headache(s), Denies odynophagia and Denies sore throat Card Denies chest pain, Denies palpitations and Denies dyspnea Resp Denies chest congestion, Reports cough (recurrent; coughs up thick whitish phlegm at times), Denies dyspnea and Denies wheezing GI Denies abdominal pain, Denies constipation, Denies dysphagia, Denies heartburn, Denies diarrhea, Denies nausea, Denies odynophagia and Denies vomiting Denies dysuria, Denies nocturia and Denies urinary frequency Musc Reports back pain, Reports arthralgias (multiple joints, including both hips and more recently the left shoulder), Reports muscle cramps (recurrent - see HPI), Reports numbness and Reports tingling (occasional) Skin/Breast Denies rash Neuro Details: increasing pain over both lower extremities Denies dizziness, Denies headache(s), Reports numbness, Reports tingling (occasional) and Reports paresthesias (over both feet, increasing) Psych Reports anxiety (increasing lately) Endo Denies fatigue and Denies palpitations Aller/Immun Denies wheezing Physical exam (Primary Care) Vital Signs: Last Vital Signs Pulse 74 11/24/23 11:59 BP 138/62 11/24/23 11:59 Pulse Ox 96 11/24/23 11:59 Oxygen Delivery Method Room Air 11/24/23 11:59 BMI result Body Mass Index 27.3 Tobacco/Smoking Status: Tobacco use Status Tobacco use date assessed 11/24/23 11/24/23 12:09 Patient Tobacco Use Status Current everyday Tobacco 11/24/23 12:01 Tobacco use type Cigarette 11/24/23 12:01 e-Cigarette/Vaping Use Never Used 11/24/23 12:01 PHQ-9: PHQ-9 Score PHQ-9: Total score 0 11/24/23 23:16 Depression Screening Interpretation: Negative Thrive Assessment: Date of Thrive Assessment Date Thrive assessed 11/24/23 11/24/23 12:09 Currently or been in a relationship where the following occur: no concerns reported Const General: no acute distress and alert HENMT Ears: TM's normal bilaterally and EAC's normal Throat: Yes posterior oropharynx normal and Yes tonsils normal (no TP congestion) Neck Neck: Yes no lymphadenopathy and Yes supple Thyroid: Thyroid normal Resp Auscultation: no crackles, no rales, no wheezes and diminished lung sounds (slightly) bilateral Cardio Rate: regular rate Rhythm: regular rhythm Heart sounds: no murmurs GI Palpation (GI): Soft to palpation and nontender Auscultation: normal bowel sounds General: Yes no CVA tenderness Back/Spine/Pelvis Back: no CVA tenderness Skin Rashes: no rashes Extrem General: Yes no clubbing, cyanosis or edema Right upper extremity: shoulder/upper arm Details: tenderness Location: of the A-C joint Left upper extremity: shoulder/upper arm Details: tenderness Location: of the A- C joint Right lower extremity: hip/thigh Details: tenderness Location: of the hip Left lower extremity: hip/thigh Details: tenderness Location: of the hip Results AMB Hemoglobin A1c AMB Hemoglobin A1c 6.6 % Last Edit by NOA Valadez on 11/24/23 12:17 Results Reviewed Results Reviewed: Laboratory Last Values Hgb A1c (Clinic) 6.6 % (4.0-6.0) H 11/24/23 11:46 Laboratory Tests 07/11/23 08/06/23 08/06/23 15:55 09:39 09:40 WBC 5.4 Hgb 14.6 Hct 42.3 Plt Count 106 L Sodium 139 Potassium 4.4 Creatinine 0.96 Estimated GFR > 60 Fasting Glucose 130 H Hgb A1c (Clinic) 7.4 H Calcium 9.5 AST 35 ALT 45 H Triglycerides 118 Cholesterol 243 H LDL Cholesterol, Calc 180 H HDL Cholesterol 40 L 25-OH Vitamin D Total 29.5 L TSH 0.96 Ur Specific [place] 1.020 Urine Protein Negative Urine Glucose (UA) Negative Urine Blood Negative Urine Nitrite Negative Ur Leukocyte Esterase Negative Microalb/Creat Ratio 5.1 11/24/23 11:46 WBC Hgb Hct Plt Count Sodium Potassium Creatinine Estimated GFR Fasting Glucose Hgb A1c (Clinic) 6.6 H Calcium AST ALT Triglycerides Cholesterol LDL Cholesterol, Calc HDL Cholesterol 25-OH Vitamin D Total TSH Ur Specific [place] Urine Protein Urine Glucose (UA) Urine Blood Urine Nitrite Ur Leukocyte Esterase Microalb/Creat Ratio Assessment and Plan Assessment & Plan (1) Diabetes mellitus: Code(s): E11.9 - Type 2 diabetes mellitus without complications Qualifiers: Diabetes mellitus complication status: without complication Diabetes mellitus care home insulin use: without longwall shearer operator use Diabetes mellitus type: type 2 Qualified Code(s): E11.9 - Type 2 diabetes mellitus without complications Plan: In-office HgbA1c done today is at 6.6% (was at 7.4% a few months ago) - goal is <7.0% Reinforced diabetic diet Continue Metformin 500 mg BID and Januvia 100 mg QD (2) Pure hypercholesterolemia: Code(s): E78.00 - Pure hypercholesterolemia, unspecified Plan: Results of his labs done back in July 2023 reviewed and discussed with patient - advised that his total and LDL cholesterol levels were significantly elevated at 230 mg/dl and 180 mg/dl respectively on his labs done back in July 2023 Reinforced low cholesterol diet He could not tolerate Atorvastatin 10 mg QD due to increased generalized weakness while he was on the medication and he self-discontinued it a few months ago Will start him this time on a trial of Rosuvastatin 5 mg QD - he is advised to call [facility] if he has any trouble tolerating this as well Will recheck his labs and fasting lipids in 4 months for follow-up (3) COPD (chronic obstructive pulmonary disease): Code(s): J44.9 - Chronic obstructive pulmonary disease, unspecified Qualifiers: COPD type: unspecified COPD Qualified Code(s): J44.9 - Chronic obstructive pulmonary disease, unspecified Plan: Continue Albuterol HFA 2 inhalations every 6 hours as needed Chest x-rays done back in August 2023 revealed that the previous mild right basilar opacity appears increased when compared with chest radiographs dating back to 08/29/2015. CT scan without intravenous contrast recommended for further evaluation (4) Opacity of lung on imaging study: Code(s): R91.8 - Other nonspecific abnormal finding of lung field Plan: Chest x-rays done back on September 02, 2023 revealed that the previous mild right basilar opacity appears increased when compared with chest radiographs dating back to 08/29/2015. CT scan without intravenous contrast recommended for further evaluation Will refer / send him for a chest CT for further evaluation (5) Neuropathy: Code(s): G62.9 - Polyneuropathy, unspecified Plan: NCV & EMG done back on 12/29/2017 revealed (+) mild sensory and motor peripheral neuropathy; he was sent for repeat studies at his last visit but he canceled his appointment as he did not want to get this repeated Continue Gabapentin 600 mg TID Her B12, ESR, CRP, TSH were all normal when checked last year Will consider repeating NCV & EMG if symptoms persist or get worse (6) Multiple joint pain: Code(s): M25.50 - Pain in unspecified joint Plan: Continue Nabumetone 500 mg BID PRN He was referred to rheumatology for further evaluation and management and he was scheduled to be seen for initial visit back in October 2022 but it appears that he never went for his appt Will revisit rheumatology referral later on but he wants to concentrate on quitting smoking first and get his diabetes under control (7) Left shoulder pain: Code(s): M25.512 - Pain in left shoulder Qualifiers: Chronicity: unspecified Qualified Code(s): M25.512 - Pain in left shoulder Plan: Will send him for x-rays of the left shoulder for further evaluation (8) Muscle cramps: Code(s): R25.2 - Cramp and spasm Plan: Will start him on a trial of Mag-Ox 400 mg BID PRN (9) Subdural hematoma: Onset Date: ~05/2021 Comment: right-sided; S/P Marzena hole drainage by Dr. Elmore on 06/01/2021 Code(s): S06.5X9A - Traumatic subdural hemorrhage with loss of consciousness of unspecified duration, initial encounter Plan: Resolved and currently has very little residual neurologic deficits (10) History of hepatitis C: Comment: S/P treatment Code(s): Z86.19 - Personal history of other infectious and parasitic diseases Plan: S/P Tx Hepatitis C viral load rechecked last year in August 2022 came out negative (11) Constipation: Code(s): K59.00 - Constipation, unspecified Qualifiers: Constipation type: unspecified constipation type Qualified Code(s): K59.00 - Constipation, unspecified Plan: Encouraged increased oral fluids and dietary fiber Continue Movantik 25 mg QD PRN (12) Insomnia: Code(s): G47.00 - Insomnia, unspecified Qualifiers: Insomnia type: unspecified Qualified Code(s): G47.00 - Insomnia, unspecified Plan: Sleep hygiene reinforced Continue Trazodone 100 mg Q HS PRN (13) Anxiety: Code(s): F41.9 - Anxiety disorder, unspecified Plan: Continue Hydroxyzine 25 mg TID PRN (14) Smoker: Code(s): F17.200 - Nicotine dependence, unspecified, uncomplicated Plan: Counseled again on smoking cessation Continue Nicotine 7 mg patches QD to help him quit smoking - Rx refilled (15) Overweight (BMI 25.0-29.9): Code(s): E66.3 - Overweight Plan: Reinforced diet/exercise as tolerated/lose weight Plan Follow up in 4 months Orders: Orders Complete Blood Count Auto Diff 4 Months D64.9 - Anemia, unspecified Lipid Panel 4 Months E78.00 - Pure hypercholesterolemia, unspecified TSH reflex Free T4 4 Months E78.00 - Pure hypercholesterolemia, unspecified Microalbumin, Random (w Creat) 4 Months E11.9 - Type 2 diabetes mellitus without complications Hemoglobin A1c 4 Months E11.9 - Type 2 diabetes mellitus without complications Magnesium 4 Months E83.42 - Hypomagnesemia AMB Hemoglobin A1c 18/24 E11.9 - Type 2 diabetes mellitus without complications XR shoulder LT min 2V 18/24 M25.512 - Pain in left shoulder Comprehensive [place]. Panel Fast 4 Months E78.00 - Pure hypercholesterolemia, unspecified UA CC w/rflx Micro + Cult 4 Months R30.0 - Dysuria Vitamin D 25-OH Total 4 Months E55.9 - Vitamin D deficiency, unspecified CT chest wo IV con Today R91.8 - Other nonspecific abnormal finding of lung field, R93.89 - Abnormal findings on diagnostic imaging of other specified body structures Medications: New rosuvastatin 5 mg PO DAILY 30 days 30 tabs 3RF magnesium oxide 400 mg PO BID 60 caps 3RF Refilled nicotine 1 patch transdermal Q24H 28 days 28 ea 3RF F17.200 - Nicotine dependence, unspecified, uncomplicated albuterol sulfate 90 mcg/actuation 1 puff PO QID PRN 8.5 ea 2RF for wheezing sitagliptin phosphate (Januvia) 100 mg PO DAILY 30 days 30 tabs 3RF Coding Level of Care Code Est Pt Level 4 (16064) Diagnoses Type 2 diabetes mellitus without complication, without long-term current use of insulin E11.9 Diabetes mellitus complication status: without complication Diabetes mellitus longwall shearer operator insulin use: without longwall shearer operator use Diabetes mellitus type: type 2 Pure hypercholesterolemia E78.00 Chronic obstructive pulmonary disease, unspecified COPD type J44.9 COPD type: unspecified COPD Opacity of lung on imaging study R91.8 Neuropathy G62.9 Multiple joint pain M25.50 Left shoulder pain, unspecified chronicity M25.512 Chronicity: unspecified Muscle cramps R25.2 Subdural hematoma S06.5X9A History of hepatitis C Z86.19 Constipation, unspecified constipation type K59.00 Constipation type: unspecified constipation type Insomnia, unspecified type G47.00 Insomnia type: unspecified Anxiety F41.9 Smoker F17.200 Overweight (BMI 25.0-29.9) E66.3 Additional Codes LEONIE-7 Assessment Billing - LEONIE-7 Assessment Tool: LEONIE-7 Assessment 04419 ([id number])
== END 2023-11-24 12:48 | disposition home or self-care (01) ==
PROVIDERS: PCP Internal Medicine; Visit Provider Internal Medicine
DX: E11.9 Type 2 diabetes mellitus without complications (principal)
CPT/HCPCS: 83036; 99214

== ENCOUNTER 2024-01-06 15:12 | Outpatient (REF) | payer MEDICARE, MEDICAID, SELFPAY ==
--- NOTE | ~2024-01-06 | CT_ITS ---
EXAMINATION: CT CHEST WITHOUT CONTRAST CLINICAL INFORMATION: Abnormal findings on diagnostic imaging. COMPARISON: Chest radiograph 09/02/2023: Mild right basilar opacity appears increased when compared with chest radiographs dating back to 08/29/2015. CT scan without intravenous contrast recommended for further evaluation. CT chest 08/23/2018. TECHNIQUE: Multidetector volumetric CT imaging of the chest was done. Axial MIP volume rendering provided. Sagittal and coronal reformatted images were obtained. This CT examination was performed using dose optimization techniques as appropriate, variously including the following: *Automated exposure control *Adjustment of mA and/or kV according to patient size (this includes techniques or standardized protocols for targeted exams where dose is matched to indication/reason for exam; i.e. extremities or head) *Use of iterative reconstruction technique DLP: 141 mGy-cm FINDINGS: LUNGS: Moderate hyperinflation and emphysematous changes are seen along with bronchial thickening without bronchiectasis. Left basilar atelectasis is seen. Multiple small pulmonary nodules are seen ranging in size from 2 mm to 4 mm, unchanged (5:240 compare prior 4:197). At the time of the prior exam, ground-glass infiltrates were present throughout the right upper lobe which have since cleared. A few scattered calcified granulomas are present. There is no new, increasing-sized or concerning pulmonary nodule. MEDIASTINUM: The mediastinum is normal. CORONARY ARTERY CALCIFICATION: None visualized on this study. PLEURA: There is no pleural effusion. No pleural mass or thickening. AXILLA: No lymphadenopathy. UPPER ABDOMEN: Cirrhotic-appearing nodular liver. Cholelithiasis without cholecystitis. OSSEOUS STRUCTURES: Unremarkable. CT/CT chest wo IV con IMPRESSION: 1. Multiple small pulmonary nodules are unchanged since 2019 CT scan and therefore benign. 2. Moderate emphysematous changes. 3. Cirrhotic appearing liver. 4. Cholelithiasis without cholecystitis. Fleischner guidelines were followed.
--- NOTE | ~2024-01-06 | XR_ITS ---
EXAMINATION: XR SHOULDER, LEFT CLINICAL INFORMATION: Pain in left shoulder. COMPARISON: None available. TECHNIQUE: 5 views of the left shoulder. FINDINGS: Degenerative changes in the imaged upper thoracic spine. Mild osteoarthritic changes acromioclavicular and glenohumeral joints. Faint linear calcification adjacent to the humeral head, best appreciated on the axillary view. XR/XR shoulder LT min 2V IMPRESSION: 1. Mild osteoarthritic changes acromioclavicular and glenohumeral joints. 2. Faint linear calcification adjacent to the humeral head, best appreciated on the axillary view.
== END 2024-01-06 15:13 | disposition home or self-care (01) ==
LOC: HO.CT 15:12
PROVIDERS: PCP Internal Medicine; Visit Provider Internal Medicine
DX: M25.512 Pain in left shoulder (principal); R93.89 Abnormal findings on diagnostic imaging of other specified body structures; R91.8 Other nonspecific abnormal finding of lung field
CPT/HCPCS: 71250; 73030

== ENCOUNTER 2024-02-27 12:04 | Outpatient (AMB) | payer MEDICARE, MEDICAID, SELFPAY ==
--- NOTE | 2024-02-27 12:38 | A.OFFPC_ITS ---
Vital Signs 02/27/24 12:39 Height 5 ft 2 in Weight 153 lb 4 oz BMI 28.0 BP 110/60 Blood Pressure Location Lt brachial Position Sitting Pulse 76 Pulse Source Pulse Oximeter Pulse Oximetry (%) 98 Oxygen Delivery Method Room Air Intake Visit Reasons: 3mth f/u Intake Note: Patient is here to follow up on DM, COPD, HTN, Hypercholesterolemia. Wheel Cleaner Required: No Credit Verifier: Not Required per policy Accompanied by: Self / Same As Patient Allergies Gadolinium-Containing Contrast Medi [Gadolinium-Containing Agents] Allergy (Mild, Verified 02/27/24 12:58) PATIENT DEVELOPED HIVES atorvastatin Adverse Reaction (Intermediate, Verified 02/27/24 12:58) severe weakness IVP dye Allergy (Unknown, Uncoded 02/27/24 12:58) hives, rash Medication List - Last Reconciled 02/27/24 by Leander Stokes MD albuterol sulfate 90 mcg/actuation 1 puff PO QID PRN blood sugar diagnostic (OneTouch Ultra Test strips) test daily blood sugar diagnostic (FreeStyle Lite Strips) As directed Once per day blood-glucose meter (OneTouch Ultra2 Meter) test once daily gabapentin 600 mg PO TID 30 days hydroxyzine HCl 25 mg PO TID PRN 30 days lancets (OneTouch UltraSoft 2 Lancet) test once daily lancets (FreeStyle Lancets) As directed once per day lancets (TRUEplus Lancets) As directed magnesium oxide 400 mg PO BID metformin 500 mg PO BID 90 days nabumetone 500 mg PO BID 30 days naloxegol (Movantik) 25 mg PO QAM PRN rosuvastatin 5 mg PO DAILY 30 days sitagliptin phosphate (Januvia) 100 mg PO DAILY 30 days trazodone 100 mg PO BEDTIME PRN Tobacco use date assessed: 02/27/24 Fall risk assessment: No Falls in past year Last assessed Fall Risk: 02/27/24 Dental Screening Dental Screen Date: 11/24/23 HPI 3mth f/u HPI Details Patient comes in today for his follow up visit States that he feels okay He denies any headaches or dizziness Denies any chest pains, no SOB No nausea/vomiting, no abdominal pain but he often feels that there is a mass in the left side of his abdomen for the past couple of months No change in bowel habits noted He was tried on Rosuvastatin 5 mg QD at his last visit but he did not grain picker the Rx - states that he does not remember ever having the conversation that he will be started on a different cholesterol Rx He also did not get his follow up labs done prior to his visit today [facility] Medical History Pure hypercholesterolemia Overweight (BMI 25.0-29.9) Constipation History of substance abuse Insomnia Depression GERD (gastroesophageal reflux disease) COPD (chronic obstructive pulmonary disease) Neuropathy Subdural hematoma (~05/2021) Smoker Bilateral flank pain Diabetes mellitus Arthritis Surgical History History of marzena hole surgery (~06/01/21) History of colonoscopy History of lung surgery Family History Father Diabetes Mother Diabetes CVD (cardiovascular disease) Social History Housing: Apartment Alcohol intake: former Patient Tobacco Use Status: Current everyday Tobacco user Tobacco use type: Cigarette Cigarette Packs Per Day: 0.5 Cigarettes Per Day: 5 e-Cigarette/Vaping Use: Never Used Second Hand Smoke Exposure: Yes service: No Current occupational status: disabled Cognitive needs: No Hearing needs: No Vision needs: Yes (Glasses) Questionnaire Thrive Questionnaire Date Thrive assessed: 11/24/23 LEONIE-7 AMB Questionnaire LEONIE-7 Date LEONIE - 7 assessed: 11/24/23 Source: Developed by Drs. Ethan Castañeda, Zully Hartman, Dillon Corrales and colleagues, with an educational rivas from [employer]. Review of Systems Const Denies chills, Denies fatigue, Denies fever(s) and Denies headache(s) ENT Denies dysphagia, Denies dizziness, Denies otalgia, Denies headache(s), Denies neck pain, Denies odynophagia and Denies sore throat Card Denies chest pain, Denies palpitations and Denies dyspnea Resp Denies chest congestion, Reports cough (recurrent; coughs up thick whitish phlegm at times), Denies dyspnea and Denies wheezing GI Denies abdominal pain (but feels that there is a recurrent L-sided abdominal mass), Denies constipation, Denies dysphagia, Denies heartburn, Denies diarrhea, Denies nausea, Denies odynophagia and Denies vomiting Denies dysuria, Denies nocturia and Denies urinary frequency Musc Reports back pain, Reports arthralgias (multiple joints, including both hips and more recently the left shoulder), Denies neck pain, Reports numbness and Reports tingling (occasional) Skin/Breast Denies rash Neuro Denies dizziness, Denies headache(s), Reports numbness, Reports tingling (occasional) and Reports paresthesias (over both feet, increasing) Psych Reports anxiety Endo Denies fatigue and Denies palpitations Aller/Immun Denies wheezing Physical exam (Primary Care) Vital Signs: Last Vital Signs Pulse 76 02/27/24 12:39 BP 110/60 02/27/24 12:39 Pulse Ox 98 02/27/24 12:39 Oxygen Delivery Method Room Air 02/27/24 12:39 BMI result Body Mass Index 28.0 Tobacco/Smoking Status: Tobacco use Status Tobacco use date assessed 02/27/24 02/27/24 12:49 Patient Tobacco Use Status Current everyday Tobacco 02/27/24 12:49 Tobacco use type Cigarette 02/27/24 12:49 e-Cigarette/Vaping Use Never Used 02/27/24 12:49 Thrive Assessment: Date of Thrive Assessment Date Thrive assessed 11/24/23 02/27/24 12:49 Const General: no acute distress and alert HENMT Ears: TM's normal bilaterally and EAC's normal Throat: Yes posterior oropharynx normal and Yes tonsils normal (no TP congestion) Neck Neck: Yes no lymphadenopathy and Yes supple Thyroid: Thyroid normal Resp Auscultation: no crackles, no rales, no wheezes and diminished lung sounds (slightly) bilateral Cardio Rate: regular rate Rhythm: regular rhythm Heart sounds: no murmurs GI Palpation (GI): Soft to palpation, nontender, no hernias and no masses Auscultation: normal bowel sounds General: Yes no CVA tenderness Back/Spine/Pelvis Back: no CVA tenderness Skin Rashes: no rashes Extrem General: Yes no clubbing, cyanosis or edema Right upper extremity: shoulder/upper arm Details: tenderness Location: of the A-C joint Left upper extremity: shoulder/upper arm Details: tenderness Location: of the A- C joint Right lower extremity: hip/thigh Details: tenderness Location: of the hip Left lower extremity: hip/thigh Details: tenderness Location: of the hip Results AMB Hemoglobin A1c AMB Hemoglobin A1c 7.1 % Last Edit by TJ Gonzalez on 02/27/24 12:52 Results Reviewed Results Reviewed: Laboratory Last Values Hgb A1c (Clinic) 7.1 % (4.0-6.0) H 02/27/24 12:51 Assessment and Plan Assessment & Plan (1) Diabetes mellitus: Code(s): E11.9 - Type 2 diabetes mellitus without complications Qualifiers: Diabetes mellitus type: type 2 Diabetes mellitus foundry patternmaker insulin use: without half-way use Diabetes mellitus complication status: without complication Qualified Code(s): E11.9 - Type 2 diabetes mellitus without compl ications Plan: His in-office HgbA1c done today is at 7.1% (he was at 6.6% a few months ago) - goal is <7.0% Reinforced diabetic diet Continue Metformin 500 mg BID and Januvia 100 mg QD (2) Pure hypercholesterolemia: Code(s): E78.00 - Pure hypercholesterolemia, unspecified Plan: He was not able to get his follow up labs done prior to his visit today Reinforced low cholesterol diet He could not tolerate Atorvastatin 10 mg QD due to increased generalized weakness while he was on the medication Will start him this time on a trial of Rosuvastatin 5 mg QD and he is advised to call [facility] if he has any trouble tolerating this as well - this was also started a few months ago but patient apparently did not understand our instructions then and never went to grain picker his Rx Will recheck his labs and fasting lipids in 4 months for follow-up - his previous lab orders are updated and will just have him use these for his next lab draw (3) COPD (chronic obstructive pulmonary disease): Code(s): J44.9 - Chronic obstructive pulmonary disease, unspecified Qualifiers: COPD type: unspecified COPD Qualified Code(s): J44.9 - Chronic obstructive pulmonary disease, unspecified Plan: Continue Albuterol HFA 2 inhalations every 6 hours as needed Chest x-rays done back in August 2023 revealed that the previous mild right basilar opacity appears increased when compared with chest radiographs dating back to 08/29/2015. CT scan without intravenous contrast recommended for further evaluation (4) Opacity of lung on imaging study: Code(s): R91.8 - Other nonspecific abnormal finding of lung field Plan: Chest x-rays done back on September 02, 2023 revealed that the previous mild right basilar opacity appears increased when compared with chest radiographs dating back to 08/29/2015. CT scan without intravenous contrast recommended for further evaluation Will refer / send him for a chest CT for further evaluation (5) Neuropathy: Code(s): G62.9 - Polyneuropathy, unspecified Plan: NCV & EMG done back on 12/29/2017 revealed (+) mild sensory and motor peripheral neuropathy; he was sent for repeat studies at his last visit but he canceled his appointment as he did not want to get this repeated Continue Gabapentin 600 mg TID Her B12, ESR, CRP, TSH were all normal when checked last year Will consider repeating NCV & EMG if symptoms persist or get worse (6) Multiple joint pain: Code(s): M25.50 - Pain in unspecified joint Plan: Continue Nabumetone 500 mg BID PRN He was referred to rheumatology for further evaluation and management and he was scheduled to be seen for initial visit back in October 2022 but it appears that he never went for his appt Will revisit rheumatology referral later on but he wants to concentrate on quitting smoking first and get his diabetes under control (7) Left shoulder pain: Code(s): M25.512 - Pain in left shoulder Qualifiers: Chronicity: unspecified Qualified Code(s): M25.512 - Pain in left shoulder Plan: X-rays of the left shoulder done a few months ago revealed (+) mild osteoarthritic changes in the acromioclavicular and glenohumeral joints as well as faint linear calcification adjacent to the humeral head suggestive of tendinitis Will consider referring him to orthopedics for further evaluation and management if his symptoms persist or progress (8) Muscle cramps: Code(s): R25.2 - Cramp and spasm Plan: Continue Mag-Ox 400 mg BID PRN (9) Subdural hematoma: Onset Date: ~05/2021 Comment: right-sided; S/P Marzena hole drainage by Dr. Elmore on 06/01/2021 Code(s): S06.5X9A - Traumatic subdural hemorrhage with loss of consciousness of unspecified duration, initial encounter Plan: Resolved and currently has very little residual neurologic deficits (10) Abdominal mass: Comment: on the left side Code(s): R19.00 - Intra-abdominal and pelvic swelling, mass and lump, unspecified site Qualifiers: Abdominal location: unspecified location Qualified Code(s): R19.00 - Intra-abdominal and pelvic swelling, mass and lump, unspecified site Plan: Will send him for abdominal US for further evaluation (11) History of hepatitis C: Comment: S/P treatment Code(s): Z86.19 - Personal history of other infectious and parasitic diseases Plan: S/P Tx Hepatitis C viral load rechecked last year in August 2022 came out negative Will refer him back to GI for follow up (12) Constipation: Code(s): K59.00 - Constipation, unspecified Qualifiers: Constipation type: unspecified constipation type Qualified Code(s): K59.00 - Constipation, unspecified Plan: Encouraged increased oral fluids and dietary fiber Continue Movantik 25 mg QD PRN (13) Insomnia: Code(s): G47.00 - Insomnia, unspecified Qualifiers: Insomnia type: unspecified Qualified Code(s): G47.00 - Insomnia, unspecified Plan: Sleep hygiene reinforced Continue Trazodone 100 mg Q HS PRN (14) Anxiety: Code(s): F41.9 - Anxiety disorder, unspecified Plan: Continue Hydroxyzine 25 mg TID PRN (15) Smoker: Code(s): F17.200 - Nicotine dependence, unspecified, uncomplicated Plan: Counseled again on smoking cessation Continue Nicotine 7 mg patches QD to help him quit smoking (16) Overweight (BMI 25.0-29.9): Code(s): E66.3 - Overweight Plan: Reinforced diet/exercise as tolerated/lose weight Plan Follow up in 4 months Orders: Orders US abdomen complete 02/27/24 R19.00 - Intra-abdominal and pelvic swelling, mass and lump, unspecified site AMB Hemoglobin A1c 02/27/24 E11.9 - Type 2 diabetes mellitus without complications Referrals Gastroenterology Referral K73.9 - Chronic hepatitis, unspecified Medications: Refilled rosuvastatin 5 mg PO DAILY 30 days 30 tabs 3RF rosuvastatin 5 mg PO DAILY 30 days 30 tabs 3RF Coding Level of Care Code Est Pt Level 4 (56981) Diagnoses Type 2 diabetes mellitus without complication, without long-term current use of insulin E11.9 Diabetes mellitus type: type 2 Diabetes mellitus foundry patternmaker insulin use: without half-way use Diabetes mellitus complication status: without complication Pure hypercholesterolemia E78.00 Chronic obstructive pulmonary disease, unspecified COPD type J44.9 COPD type: unspecified COPD Opacity of lung on imaging study R91.8 Neuropathy G62.9 Multiple joint pain M25.50 Left shoulder pain, unspecified chronicity M25.512 Chronicity: unspecified Muscle cramps R25.2 Subdural hematoma S06.5X9A Abdominal mass, unspecified abdominal location R19.00 Abdominal location: unspecified location History of hepatitis C Z86.19 Constipation, unspecified constipation type K59.00 Constipation type: unspecified constipation type Insomnia, unspecified type G47.00 Insomnia type: unspecified Anxiety F41.9 Smoker F17.200 Overweight (BMI 25.0-29.9) E66.3
[2024-02-27 12:39] VITALS: BP 110/60; PULSE 76; O2SAT 98; BMI 28.0
== END 2024-02-27 13:19 | disposition home or self-care (01) ==
PROVIDERS: PCP Internal Medicine; Visit Provider Internal Medicine
DX: E11.9 Type 2 diabetes mellitus without complications (principal)
CPT/HCPCS: 83036; 99214

== ENCOUNTER 2024-04-03 08:30 | Outpatient (REF) | payer MEDICARE, MEDICAID, SELFPAY ==
--- NOTE | ~2024-04-03 | US_ITS ---
EXAMINATION: US PELVIS, LIMITED/FOLLOW UP CLINICAL INFORMATION: Swelling mass or lump on the right pelvis. COMPARISON: None available. TECHNIQUE: High frequency linear ultrasound transducer along with curved transducer was used to examine the area of clinical concern. FINDINGS: No abnormality is seen in the right groin. No hernia, mass, fluid collection or lymphadenopathy seen. US/US pelvic limited IMPRESSION: No abnormality is seen in the right groin. Electronically signed by: Fredy Tinsley MD 04/10/2024 12:36 AM EDT
== END 2024-04-03 08:31 | disposition home or self-care (01) ==
LOC: HO.US 08:30
PROVIDERS: PCP Internal Medicine; Visit Provider Internal Medicine
DX: R19.00 Intra-abdominal and pelvic swelling, mass and lump, unspecified site (principal)
CPT/HCPCS: 76857

== ENCOUNTER 2024-07-03 12:17 | Outpatient (AMB) | payer MEDICARE, MEDICAID, SELFPAY ==
[2024-07-03 12:33] VITALS: BP 132/76; PULSE 63; O2SAT 98; BMI 27.8
--- NOTE | 2024-07-03 12:33 | A.OFFPC_ITS ---
Vital Signs 07/03/24 12:33 Height 5 ft 2 in Weight 152 lb BMI 27.8 BP 132/76 Blood Pressure Location Lt brachial Position Sitting Pulse 63 Pulse Source Pulse Oximeter Pulse Oximetry (%) 98 Oxygen Delivery Method Room Air Intake Visit Reasons: 4mth f/u Emr Specialist Required: No Accompanied by: Self / Same As Patient Allergies Gadolinium-Containing Contrast Medi [Gadolinium-Containing Agents] Allergy (Mild, Verified 07/08/24 18:44) PATIENT DEVELOPED HIVES atorvastatin Adverse Reaction (Intermediate, Verified 07/08/24 18:44) severe weakness IVP dye Allergy (Unknown, Uncoded 07/08/24 18:44) hives, rash Medication List - Last Reconciled 07/08/24 by Leander Stokes MD albuterol sulfate 90 mcg/actuation 1 puff PO QID PRN blood sugar diagnostic (OneTouch Ultra Test strips) test daily blood sugar diagnostic (FreeStyle Lite Strips) As directed Once per day blood-glucose meter (ChikkaTouch Ultra2 Meter) test once daily gabapentin 600 mg PO TID 30 days hydroxyzine HCl 25 mg PO TID PRN 30 days lancets (OneTouch UltraSoft 2 Lancet) test once daily lancets (FreeStyle Lancets) As directed once per day lancets (TRUEplus Lancets) As directed magnesium oxide 400 mg PO BID metformin 500 mg PO BID 90 days nabumetone 500 mg PO BID 30 days naloxegol (Movantik) 25 mg PO QAM PRN nicotine 1 patch transdermal DAILY 7 days nicotine 1 patch transdermal DAILY 7 days nicotine 1 patch transdermal Q24H 28 days rosuvastatin 5 mg PO DAILY 30 days Tradjenta (linagliptin) 5 mg PO QAM 90 days NS trazodone 100 mg PO BEDTIME PRN Tobacco use date assessed: 07/03/24 Fall risk assessment: No Falls in past year Last assessed Fall Risk: 07/03/24 Dental Screening Dental Screen Date: 07/03/24 Did you have a dental visit in the last 12 months?: No Did you have a dental problem in the last 6 months where you did not have access to dental care?: No Was dental information given to patient?: No HPI 4mth f/u HPI Details Patient comes in today for his follow-up visit States that he feels okay He denies any headaches or dizziness Denies any chest pains, no shortness of breath No nausea/vomiting, no abdominal pain No change in bowel habits noted Needs his Metformin Rx refilled He was not able to get any of his follow-up labs done prior to his appointment today [facility] Medical History Pure hypercholesterolemia Overweight (BMI 25.0-29.9) Constipation History of substance abuse Insomnia Depression GERD (gastroesophageal reflux disease) COPD (chronic obstructive pulmonary disease) Neuropathy Subdural hematoma (~05/2021) Smoker Bilateral flank pain Diabetes mellitus Arthritis Surgical History History of marzena hole surgery (~06/01/21) History of colonoscopy History of lung surgery Family History Father Diabetes Mother Diabetes CVD (cardiovascular disease) Social History Housing: Apartment Alcohol intake: former Patient Tobacco Use Status: Current everyday Tobacco user Tobacco use type: Cigarette Cigarette Packs Per Day: 0.5 Cigarettes Per Day: 5 e-Cigarette/Vaping Use: Never Used Second Hand Smoke Exposure: Yes service: No Current occupational status: disabled Cognitive needs: No Hearing needs: No Vision needs: Yes (Glasses) Questionnaire PHQ-9 Over the last 2 weeks, how often have you been bothered by any of the following problems? 1. Little interest or pleasure in doing things: not at all 2. Feeling down, depressed, or hopeless: not at all 3. Trouble falling or staying asleep, or sleeping too much: not at all 4. Feeling tired or having little energy: not at all 5. Poor appetite or overeating: not at all 6. Feeling bad about yourself - or that you are a failure or have let yourself or your family down: not at all 7. Trouble concentrating on things, such as reading the newspaper or watching television: not at all 8. Moving or speaking so slowly that other people could have noticed. Or the opposite - being so fidgety or restless that you have been moving around a lot more than usual: not at all 9. Thoughts that you would be better off or of hurting yourself in some way: not at all Total score: 0 Depression Screening Interpretation: Negative Depression Screening Done: Yes 21808 - PHQ-9 Billing: Yes Source: Developed by Drs. Ethan Castañeda, Zully Hartman, Dillon Corrales and colleagues, with an educational rivas from [employer]. Thrive Questionnaire Date Thrive assessed: 07/03/24 I am a: Patient What is your living situation today?: I have a steady place to live Within the past 12 months, did the food you bought not last and you didn't have the money to get more?: Never true Within the past 12 months, did you worry whether your food would run out before you got money to buy more?: Never true Do you have trouble paying for medicines?: No Do you have trouble getting transportation to medical appointments?: No Do you have trouble paying your heating and electricity bill?: No Do you have trouble taking care of your child, family member or friend?: No Do you have trouble with day-to-day activities such as bathing, preparing meals, shopping, managing finances, etc.?: No Are you currently unemployed and looking for a job?: No Are you interested in more education?: No Please select the resources that you would like help with: None Currently or been in a relationship where the following occur: No concerns reported THRIVE Score: 0 AUDIT C Alcohol Use Questionnaire (AUDIT-C) 1. How often do you have a drink containing alcohol?: Never 2. How many drinks containing alcohol do you have on a typical day when you are drinking?: 1 or 2 3. How often do you have six or more drinks on one occasion?: Never Total Score: 0 Score Reviewed/Action Taken: Yes LEONIE-7 AMB Questionnaire LEONIE-7 Date LEONIE - 7 assessed: 07/03/24 Feeling nervous, anxious, or on edge: 0 = Not at all Not being able to stop or control worryin = Not at all Worrying too much about different things: 0 = Not at all Trouble relaxin = Not at all Being so restless that it is hard to sit still: 0 = Not at all Becoming easily annoyed or irritable: 0 = Not at all Feeling afraid as if something awful might happen: 0 = Not at all Total LEONIE-7 score (0-4 normal; 5-9 mild; 10-14 moderate; 15-21 severe): 0 Source: Developed by Drs. Ethan Castañeda, Zully Hartman, Dillon Corrales and colleagues, with an educational rivas from [employer]. Review of Systems Const Denies chills, Denies fatigue, Denies fever(s) and Denies headache(s) ENT Denies dysphagia, Denies dizziness, Denies otalgia, Denies headache(s), Denies neck pain, Denies odynophagia and Denies sore throat Card Denies chest pain, Denies palpitations and Denies dyspnea Resp Denies chest congestion, Reports cough (on and off; coughs up thick whitish phlegm at times), Denies dyspnea and Denies wheezing GI Denies abdominal pain (but feels (+) recurrent L-sided abdominal mass), Denies constipation, Denies dysphagia, Denies heartburn, Denies diarrhea, Denies nausea, Denies odynophagia and Denies vomiting Denies dysuria, Denies nocturia and Denies urinary frequency Musc Reports back pain, Reports arthralgias (over multiple joints, including both hips and the left shoulder), Denies neck pain, Reports numbness and Reports tingling (occasional) Skin/Breast Denies rash Neuro Denies dizziness, Denies headache(s), Reports numbness, Reports tingling (occasional) and Reports paresthesias (over both feet, increasing) Psych Reports anxiety Endo Denies fatigue and Denies palpitations Aller/Immun Denies wheezing Physical exam (Primary Care) Vital Signs: Last Vital Signs Pulse 63 07/03/24 12:33 BP 132/76 07/03/24 12:33 Pulse Ox 98 07/03/24 12:33 Oxygen Delivery Method Room Air 07/03/24 12:33 BMI result Body Mass Index 27.8 Tobacco/Smoking Status: Tobacco use Status Tobacco use date assessed 07/03/24 07/03/24 12:40 Patient Tobacco Use Status Current everyday Tobacco 07/03/24 12:40 Tobacco use type Cigarette 07/03/24 12:40 e-Cigarette/Vaping Use Never Used 07/03/24 12:40 PHQ-9: PHQ-9 Score PHQ-9: Total score 0 07/03/24 13:11 Depression Screening Interpretation: Negative Thrive Assessment: Date of Thrive Assessment Date Thrive assessed 07/03/24 07/03/24 12:40 Currently or been in a relationship where the following occur: No concerns reported Const General: no acute distress and alert HENMT Ears: TM's normal bilaterally and EAC's normal Throat: Yes posterior oropharynx normal and Yes tonsils normal (no TP congestion) Neck Neck: Yes no lymphadenopathy and Yes supple Thyroid: Thyroid normal Resp Auscultation: no crackles, no rales, no wheezes and diminished lung sounds (slightly) bilateral Cardio Rate: regular rate Rhythm: regular rhythm Heart sounds: no murmurs GI Palpation (GI): Soft to palpation, nontender, no hernias and no masses Auscultation: normal bowel sounds General: Yes no CVA tenderness Back/Spine/Pelvis Back: no CVA tenderness Thoracic/Lumbar Spine: lumbar spinal tenderness Skin Rashes: no rashes Extrem General: Yes no clubbing, cyanosis or edema Right upper extremity: shoulder/upper arm Details: tenderness Location: of the A-C joint Left upper extremity: shoulder/upper arm Details: tenderness Location: of the A- C joint Right lower extremity: hip/thigh Details: tenderness Location: of the hip Left lower extremity: hip/thigh Details: tenderness Location: of the hip Coding Level of Care Code Est Pt Level 4 (53048) Complex EM visit Add On G2211 Diagnoses Type 2 diabetes mellitus without complication, without long-term current use of insulin E11.9 Diabetes mellitus type: type 2 Diabetes mellitus custodial insulin use: without custodial use Diabetes mellitus complication status: without complication Pure hypercholesterolemia E78.00 Chronic obstructive pulmonary disease, unspecified COPD type J44.9 COPD type: unspecified COPD Opacity of lung on imaging study R91.8 Neuropathy G62.9 Multiple joint pain M25.50 Muscle cramps R25.2 Subdural hematoma S06.5X9A History of hepatitis C Z86.19 Abdominal mass, unspecified abdominal location R19.00 Abdominal location: unspecified location Constipation, unspecified constipation type K59.00 Constipation type: unspecified constipation type Insomnia, unspecified type G47.00 Insomnia type: unspecified Anxiety F41.9 Smoker F17.200 Overweight (BMI 25.0-29.9) E66.3 Additional Codes PHQ-9 - 07073 - PHQ-9 Billing: Yes ([id number]) Assessment & Plan Assessment & Plan (1) Diabetes mellitus: Code(s): E11.9 - Type 2 diabetes mellitus without complications Category: Medical Qualifiers: Diabetes mellitus type: type 2 Diabetes mellitus custodial insulin use: without intermediate teacher use Diabetes mellitus complication status: without complication Qualified Code(s): E11.9 - Type 2 diabetes mellitus without complications Plan: His in-office HgbA1c was at 7.1% a few months ago (he was previously at 6.6%) - goal is <7.0% As he is going for his follow up labs soon, will just have him get his HgbA1c rechecked then as well Will also check his C-peptide level and LEONIE Ab for further evaluation of his diabetes Reinforced diabetic diet Continue Metformin 500 mg BID and Januvia 100 mg QD for now (2) Pure hypercholesterolemia: Code(s): E78.00 - Pure hypercholesterolemia, unspecified Category: Medical Plan: Patient was not able to get his follow up labs done prior to his appointment today - will have him go and get these done RAYMOND Reinforced low cholesterol diet He could not tolerate Atorvastatin 10 mg QD in the past due to increased generalized weakness while he was on the medication We tried starting him on a trial of Rosuvastatin 5 mg QD earlier this year but patient apparently did not understand our instructions then and 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 He was advised of this again at his last visit and the Rx was again sent in - patient states that he has been taking this for the past few months and did not seem to have any problems at all with the medication We will see how his labs come out this time before determining if any changes need to be made Will have him get his labs and fasting lipids rechecked again in 3 months for follow up (3) COPD (chronic obstructive pulmonary disease): Code(s): J44.9 - Chronic obstructive pulmonary disease, unspecified Category: Medical Qualifiers: COPD type: unspecified COPD Qualified Code(s): J44.9 - Chronic obstructive pulmonary disease, unspecified Plan: Continue Albuterol HFA 2 inhalations every 6 hours as needed Chest x-rays done back in August 2023 revealed that the previous mild right basilar opacity appears increased when compared with chest radiographs dating back to 08/29/2015. CT scan without intravenous contrast recommended for further evaluation (4) Opacity of lung on imaging study: Code(s): R91.8 - Other nonspecific abnormal finding of lung field Category: Medical Plan: Chest CT done in December 2023 revealed (+) multiple small pulmonary nodules are unchanged since 2019 CT scan and therefore benign. There are also moderate emphysematous changes noted on his chest CT (5) Neuropathy: Code(s): G62.9 - Polyneuropathy, unspecified Category: Medical Plan: NCV & EMG done back on 12/29/2017 revealed (+) mild sensory and motor peripheral neuropathy; he was sent for repeat studies at his last visit but he canceled his appointment as he did not want to get this repeated Continue Gabapentin 600 mg TID Her B12, ESR, CRP, TSH were all normal when checked last year Will consider repeating NCV & EMG if symptoms persist or get worse (6) Multiple joint pain: Code(s): M25.50 - Pain in unspecified joint Category: Medical Plan: X-rays of his left shoulder done a few months ago (December 2023) revealed (+) mild osteoarthritic changes in the acromioclavicular and glenohumeral joints as well as faint linear calcification adjacent to the humeral head suggestive of tendinitis Will consider referring him to orthopedics for further evaluation and management if his symptoms persist or progress Continue Nabumetone 500 mg BID PRN He was referred to rheumatology for further evaluation and management of his joint pains last year and he was scheduled to be seen for initial visit back in October 2022 but it appears that he never went for his appt Will revisit rheumatology referral later on but he wants to concentrate on quitting smoking first and get his diabetes under control (7) Muscle cramps: Code(s): R25.2 - Cramp and spasm Category: Medical Plan: Continue Mag-Ox 400 mg BID PRN (8) Subdural hematoma: Onset Date: ~05/2021 Comment: right-sided; S/P Horton hole drainage by Dr. Elmore on 06/01/2021 Code(s): S06.5X9A - Traumatic subdural hemorrhage with loss of consciousness of unspecified duration, initial encounter Category: Medical Plan: This is resolved and currently has very little residual neurologic deficits (9) History of hepatitis C: Comment: S/P treatment Code(s): Z86.19 - Personal history of other infectious and parasitic diseases Category: Medical Plan: S/P Tx Hepatitis C viral load rechecked last year in August 2022 came out negative Follow up with GI as scheduled (10) Abdominal mass: Comment: on the left side Code(s): R19.00 - Intra-abdominal and pelvic swelling, mass and lump, unspecified site Category: Medical Qualifiers: Abdominal location: unspecified location Qualified Code(s): R19.00 - Intra-abdominal and pelvic swelling, mass and lump, unspecified site Plan: Patient is advised that his pelvic US done in March 2024 came out normal with no explanation for the perceived left lower abdominal mass that he has been complaining of for the past few months (11) Constipation: Code(s): K59.00 - Constipation, unspecified Category: Medical Qualifiers: Constipation type: unspecified constipation type Qualified Code(s): K59.00 - Constipation, unspecified Plan: He is encouraged again on increased oral fluids and dietary fiber Continue Movantik 25 mg QD PRN (12) Insomnia: Code(s): G47.00 - Insomnia, unspecified Category: Medical Qualifiers: Insomnia type: unspecified Qualified Code(s): G47.00 - Insomnia, unspecified Plan: Sleep hygiene reinforced Continue Trazodone 100 mg Q HS PRN (13) Anxiety: Code(s): F41.9 - Anxiety disorder, unspecified Category: Medical Plan: Continue Hydroxyzine 25 mg TID PRN (14) Smoker: Code(s): F17.200 - Nicotine dependence, unspecified, uncomplicated Category: Social Hx Plan: Counseled again on smoking cessation Continue Nicotine 7 mg patches QD to help him quit smoking (15) Overweight (BMI 25.0-29.9): Code(s): E66.3 - Overweight Category: Medical Plan: Reinforced diet/exercise as tolerated/lose weight Plan Follow up in 3 months Orders: Orders C Peptide 07/03/24 E11.9 - Type 2 diabetes mellitus without complications Glutamic acid decarboxylase Ab 07/03/24 E11.9 - Type 2 diabetes mellitus without complications Complete Blood Count Auto Diff 3 Months D64.9 - Anemia, unspecified Microalbumin, Random (w Creat) 3 Months E11.9 - Type 2 diabetes mellitus without complications Comprehensive Perkins. Panel Fast 3 Months E78.00 - Pure hypercholesterolemia, unspecified Hemoglobin A1c 3 Months E11.9 - Type 2 diabetes mellitus without complications TSH reflex Free T4 3 Months E78.00 - Pure hypercholesterolemia, unspecified Hepatitis C Viral Load 07/03/24 Z86.19 - Personal history of other infectious and parasitic diseases Lipid Panel 3 Months E78.00 - Pure hypercholesterolemia, unspecified UA CC w/rflx Micro + Cult 3 Months R30.0 - Dysuria Vitamin D 25-OH Total 3 Months E55.9 - Vitamin D deficiency, unspecified Medications: Refilled metformin 500 mg PO BID 90 days 180 tabs 1RF
== END 2024-07-03 13:13 | disposition home or self-care (01) ==
PROVIDERS: PCP Internal Medicine; Visit Provider Internal Medicine
DX: E11.9 Type 2 diabetes mellitus without complications (principal); J44.9 Chronic obstructive pulmonary disease, unspecified; S06.5X9A Traumatic subdural hemorrhage with loss of consciousness of unspecified duration, initial encounter; E78.00 Pure hypercholesterolemia, unspecified; R91.8 Other nonspecific abnormal finding of lung field; G62.9 Polyneuropathy, unspecified; M25.50 Pain in unspecified joint; R25.2 Cramp and spasm; Z86.19 Personal history of other infectious and parasitic diseases; R19.00 Intra-abdominal and pelvic swelling, mass and lump, unspecified site; K59.00 Constipation, unspecified; G47.00 Insomnia, unspecified

== ENCOUNTER → 2024-07-03 12:17 | Outpatient (BNVA) | payer MEDICARE, MEDICAID, SELFPAY | PROVIDERS: PCP Internal Medicine; Visit Provider Internal Medicine | DX: E11.9 Type 2 diabetes mellitus without complications (principal); E78.00 Pure hypercholesterolemia, unspecified; J44.9 Chronic obstructive pulmonary disease, unspecified; R91.8 Other nonspecific abnormal finding of lung field; G62.9 Polyneuropathy, unspecified; M25.50 Pain in unspecified joint; R25.2 Cramp and spasm; S06.5X9D Traumatic subdural hemorrhage with loss of consciousness of unspecified duration, subsequent encounter; R19.00 Intra-abdominal and pelvic swelling, mass and lump, unspecified site; K59.00 Constipation, unspecified; F41.9 Anxiety disorder, unspecified; E66.3 Overweight; F17.200 Nicotine dependence, unspecified, uncomplicated; Z86.19 Personal history of other infectious and parasitic diseases; Z71.6 Tobacco abuse counseling | CPT/HCPCS: 96127; 99212 ==

== ENCOUNTER 2024-07-25 08:59 | Outpatient (REF) | payer MEDICARE, MEDICAID, SELFPAY ==
--- OUTSIDE RECORDS SUMMARY | 2024-07-25 09:08 | XMS_ITS ---
Author Organization [facility] Address [address] [place] [id number] Care Team Providers Care Chemical Analyst Name Role Phone Kike CROFT, Leander Primary Care Provider Ethan Keys Unavailable [phone] ALLERGIES Allergen (clinical drug ingredient) Drug/Non Drug Allergy documented on EMR Reaction Allergy Type Onset Date Status IVP Dye contrast (uncoded) Unknown Allergy Active REASON FOR VISIT Patient presents today for CHRONIC HEPATITIS MEDICATIONS Medication SIG (Take, Route, Frequency, Duration) Notes Start Date End Date Status Rosuvastatin Calcium 5 MG TAKE ONE TABLE T DAILY Oral for 30 Active Albuterol Sulfate HFA 108 (90 Base) MCG/ACT Inhalation for 50 Activ e Magnesium Oxide -Mg Supplement 400 (240 Mg) MG TAKE ONE TABLET TWICE DAILY Oral for 30 Active Citalopram Hydrobromide 40 MG 0.5 tablet Orally Once a day Active Tradjenta 5 MG Oral for 90 Act lianet metFORMIN HCl 500 MG 1 tablet with meals Orally Twice a day Active glipiZIDE 5 MG 1 tablet Orally Once a day Active traZODone HCl 50 MG 1 tablet at bedtime Orally Once a day Active IMMUNIZATIONS Vaccine Route Administration Date Status Comme nts Influenza Unknown 07/11/2024 Refused SOCIAL HISTORY Tobacco Use: Social History Observation Description Date Details (start date - stop date) Current Smoker NA - NA Sex Assigned At : Social History Observation Description Sex Assigned At Unknown Tobacco Use/Smoking Question Answer Notes Patient is a current smoker How often do you smoke cigarettes? every day How many cigarettes a day do you smoke? 5 or les s How soon after you wake up do you smoke your fir st cigarette? 31-60 minutes Are you interested in quitting? Ready to quit Alcohol Screen Question Answer Notes Did you have a drink contain ing alcohol in the past year? Yes How often did you have a dri nk containing alcohol in the past year? 2 to 4 times a month (2 points) How many drinks did you have on a typical day when you were drinking in the past year? 1 or 2 drinks (0 point) How often did you have 6 or more drinks on one occasion in the past year? Never (0 point) Points 2 Interpretation Negative PROBLEMS Problem Type ICD Code Onset Dates Problem Status W/U Status Risk SNOMED Code Notes Problem Colon cancer screening (Z12.11) Active confirmed Colon cancer screening ([id number]) VITAL SIGNS BMI 25.29 kg/m2 07/11/2024 Blood pressure systolic 000 mm Hg 07/11/20 24 Blood pressure diastolic 00 mm Hg 024 Height 65.24 in 07/11/2024 Temperature 97.7 degrees Fahrenheit 07/11/20 24 Weight 153 lb 2 oz lbs 07/11/2024 Encounters Encounter Location Date Provider Diagnosis [facility] [address] [place] [address] 07/11/2024 Ethan Ricardo Hepatic cirrhosis, unspecified hepatic cirrhosis type K74.60 ; History of hepatitis C Z86.19 and Colon cancer screening Z12.11 ASSESSMENTS Encounter Date Diagnosis Assessment Notes Treatment Notes Treatment Clinical Notes 07/11/2024 Hepatic cirrhosis, unspecified hepatic cirrhosis type (ICD-10 - K74.60) 07/11/2024 History of hepatitis C (ICD-10 - Z86.19) 07/11/2024 Colon cancer screening (ICD-10 - Z12.11) PLAN OF TREATMENT Pending Test Test Name Order Date LIVER PROFILE 07/11/2024 CBC w DIFF 07/11/2024 ALPHA-FETOPROTEIN,TUMOR MARKER 4 HEPATITIS C VIRAL LOAD 07/11/2024 HCV LIVER FIBROSIS, FIBRO TEST 4 Prothrombin Time INR 07/11/2024 US abdomen comp w elastography 4 Next Appt Details Follow Up: 6 Months, Reason: Provider Name:Ethan Ricardo , 01/09/2025 01:20:00 PM, [address], [address], [place], [address], Progress Notes * Examination Category Sub-Category Detail Notes General Examination GENERAL APPEARANCE: pleasant , well nourished, well developed, in no acute distress HEAD: EYES: sclera non-icteric EARS: NOSE: THROAT: NECK/THYROID: no cervical lymphade nopathy, neck supple HEART: S1, S2 normal CHEST: LUNGS: clear to auscultatio n bilaterally ABDOMEN: normal bowel sounds, no guarding or rigidity, no guarding or rigidity, no masses palpable, soft, nontender, nondistended NEUROLOGIC: alert and oriented SKIN: nonjaundiced, no spi sid angiomata EXTREMITIES: no edema PERIPHERAL PULSES: BACK: BREASTS: MUSCULOSKELETAL: MALE GENITOURINARY: LYMPH NODES: RECTAL EXAM: FEMALE GENITOURINARY: ORAL CAVITY: mucosa moist
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
== END 2024-07-25 09:00 | disposition home or self-care (01) ==
LOC: HO.US 08:59
PROVIDERS: PCP Internal Medicine; Visit Provider Internal Medicine
DX: K74.60 Unspecified cirrhosis of liver (principal); Z86.19 Personal history of other infectious and parasitic diseases
CPT/HCPCS: 76700; 76981

== ENCOUNTER → 2024-07-25 09:16 | Outpatient (BNV) | payer MEDICARE, MEDICAID, SELFPAY | PROVIDERS: PCP Internal Medicine; Visit Provider Radiology Diagnostic Radiology | DX: K74.60 Unspecified cirrhosis of liver (principal); K76.89 Other specified diseases of liver | CPT/HCPCS: 76700; 76981 ==

== ENCOUNTER 2024-10-01 09:49 | Outpatient (REF) | payer MEDICARE, MEDICAID, SELFPAY ==
[2024-10-01 10:27] LABS: MANUAL DIFF FLAG NO
--- OUTSIDE RECORDS SUMMARY | 2024-10-01 10:49 | XMS_ITS | Patient Health Record ---
Author Organization [facility] Address [address] [place] [phone] Care Team Providers Care Production Supply Equipment Tender Name Role Phone Leander Stokes MD Primary Care Provider Unava Ethan Ward [phone] ALLERGIES Allergen (clinical drug ingredient) Drug/Non Drug Allergy documented on EMR Reaction Allergy Type Onset Date Status IVP Dye contrast (uncoded) Unknown Allergy Active RESULTS Component Value Reference Range Notes US abdomen comp w elastograp hy (Not yet reviewed by provider) Interpretation: Performing Lab: Notes/Report: [address] [address] Ultrasound Report Signed Patient: Hernandez Ordoñez MR#: [id number] : 1955 Acct:[id number] Age/Sex: 68 / M ADM Date: 07/25/24 Loc: HO.US Attending Dr: Ethan Ricardo MD Ordering Physician: Ethan Ricardo MD Date of Service: 07/25/24 Procedure(s): US abdomen comp w elastography Accession Number(s): [id number] cc: Leander Stokes MD; Ethan Ricardo MD EXAMINATION: US ABDOMEN COMPLETE WITH LIVER ELASTOGRAPHY HISTORY: h/o hep. C, hepatic cirrhosis TECHNIQUE: Real-time grayscale ultrasound imaging of the abdomen was performed and images were reviewed. COMPARISON: Comparison is made with the prior examination dated 01/08/2019. FINDINGS: Liver: The liver is normal in size, but demonstrates heterogeneous echotexture. The liver demonstrates a lobulated contour, suggestive of cirrhosis. No focal mass or intrahepatic biliary ductal dilatation is identified. There is normal hepatopedal flow in the portal vein. Ultrasound elastography of the liver was performed with 10 separate measurements of the liver parenchyma with the patient in the supine position. Measurements were obtained approximately 2 cm below Urbano's capsule and perpendicular to the capsule. Images are of satisfactory quality. The median shear wave velocity is 1.73 m/s. The interquartile range/median (IQR/median) is 0.06. Gallbladder and biliary tree: The gallbladder is unremarkable, without evidence of calculi, wall thickening, or pericholecystic fluid. There is no sonographic Pierre sign. The common bile duct is normal in caliber measuring 6 mm. Kidneys: The right kidney measures 10.6 cm in length. The left kidney measures 11.0 cm in length. The kidneys are unremarkable, without evidence of masses, hydronephrosis, or calculi. Pancreas: The pancreatic head, neck, and body are unremarkable. The pancreatic tail is obscured by bowel gas. Spleen: The spleen is normal in size and contour, measuring 10.9 cm in length. Abdominal aorta and inferior vena cava: The visualized portions of the abdominal aorta and inferior vena cava are normal in caliber. There is no free fluid in the abdomen. US/US abdomen comp w elastography IMPRESSION: Heterogeneous hepatic echotexture. Lobulated hepatic contour, suggestive of cirrhosis. The median shear wave velocity is 1.73 m/s, corresponding to a median liver stiffness of 9.18 kPa. The IQR/median value is 0.06. This is indicative of a quality data set. Findings are indicative of a high elastography value suggestive of advanced chronic liver disease. REFERENCE: Society of Radiologists in Ultrasound Liver Stiffness Thresholds (2020): LIVER STIFFNESS THRESHOLDS: *Shear wave velocity less than 1.3 m/s (Liver Stiffness equal or less than 5 kPa): High probability of being normal. *Shear wave velocity less than 1.7 m/s (Liver Stiffness less than 9 kPa): In the absence of other known clinical signs, rules out compensated advanced chronic liver disease. *Shear wave velocity between 1.7-2.1 m/s (Liver Stiffness 9-13 kPa): Suggestive of compensated advanced chronic liver disease but need further test for confirmation. *Shear wave velocity between 2.1-2.4 m/s (Liver Stiffness 13-17 kPa): Rules in compensated advanced chronic liver disease. *Shear wave velocity greater than 2.4 m/s (Liver Stiffness over 17 kPa): Suggestive of clinically significant portal hypertension. QUALITY OF DATA SET: *IQR/Median value equal or less than 0.15 implies a quality data set. *IQR/Median value over 0.15 implies a poor quality data set. SIGNIFICANT CHANGE FROM PRIOR EXAM: Significant change if liver stiffness measurement is 10% or greater from prior exam. OTHER CONSIDERATIONS: The stage of liver fibrosis may be overestimated in the setting of acute hepatitis, liver inflammation, elevated liver function tests, hepatic vascular congestion, obstructive cholestasis, non-fasting state, and infiltrative diseases such as amyloidosis and lymphoma. In some patients with NAFLD, the liver stiffness thresholds for compensated advanced chronic liver disease may be lower. In causes other than viral hepatitis and NAFLD, liver stiffness thresholds are not well established. Electronically signed by: Ethan Poole MD 09/04/2024 09:23 AM EST Dictated By: Ethan Poole MD Signed By: <Electronically signed by Ethan Poole MD in OV> 09/04/24922 DD/ 5 TD/TT: 07/25/24934 Safety Sitter: REASON FOR REFERRAL No Information MEDICATIONS Medication [...] screening (Z12.11) Active confirmed Colon cancer screening ([id number]) Problem Other cirrhosis of liver (K74.69) Active confirmed Problem Chronic hepatitis C without hepatic coma (B18.2) Active confirmed [id number] Problem History of hepatitis C (Z86.19) Active confirmed [id number] Problem Hepatic cirrhosis, unspecified hepatic cirrhosis type (K74.60) Active confirmed VITAL SIGNS Temperature 97.7 degrees Fahrenheit 07/11/2024 Blood pressure diastolic 00 mm Hg 07/11/2024 Height 65.24 in 07/11/2024 Blood pressure systolic 000 mm Hg 07/11/2024 Weight 153 lb 2 oz lbs 07/11/2024 BMI 25.29 kg/m2 07/11/2024 Encounters Encounter Location Date Provider Diagnosis [facility] [address] [place] [phone] 07/11/2024 Ethan Ricardo Hepatic cirrhosis, unspecified hepatic [...] Test Test Name Order Date LIVER PROFILE 05/23/2015 LIVER PROFILE 06/02/2016 LIVER PROFILE 11/05/2015 LIVER PROFILE 07/11/2024 LIVER PROFILE 12/21/2018 CBC w DIFF 11/05/2015 CBC w DIFF 07/11/2024 CBC w DIFF 12/21/2018 CBC w DIFF 04/10/2013 CBC w DIFF 05/23/2015 PROTHROMBIN TIME (PT, INR) 12/21/2018 PROTHROMBIN TIME (PT, INR) 04/10/2013 ALPHA-FETOPROTEIN,TUMOR MARKER 6 ALPHA-FETOPROTEIN,TUMOR MARKER 4 ALPHA-FETOPROTEIN,TUMOR MARKER 9 ALPHA-FETOPROTEIN,TUMOR MARKER 3 HEPATITIS C VIRAL LOAD 11/05/2015 HEPATITIS C VIRAL LOAD 07/11/2024 HEPATITIS C VIRAL LOAD 05/23/2015 HEPATITIS C VIRAL LOAD 12/21/2018 HEPATITIS C VIRAL LOAD 06/02/2016 HCV LIVER FIBROSIS, FIBRO TEST 4 Prothrombin Time INR 07/11/2024 US abdomen comp w elastography 4 US abdomen comp w elastography 4 Next Appt Details Provider Name:Ethan Ricardo , 01/09/2025 01:20:00 PM, [address] [place] [address], [address], [place], [address], Insurance Providers Payer Name Payer Address Payer Phone Subscriber Number Group Number Insured Name Patient Relationship to Insured Coverage Start Date Coverage End Date MEDICARE OF [place] [address] [place] [id number] [phone] [id number] HERNANDEZ ORDOÑEZ Self - patient is the insured MEDICAID OF [facility] [place] [address] [place] [phone] [id number] HERNANDEZ ORDOÑEZ Self - patient is the insured MEDICAL (GENERAL) HISTORY Medical History History ICD Code Chronic Hep C- Genotype 1a, liver bx 08/2004 with Grade 2/4 and Stage III/IV-treated with 26 wks of Peg-IF and Ribavirin in [id number] with nondetectable viral load, but had to [...] and in 05/2017 Gallstones-asymptomatic Asthma NIDDM Denies [place],CVA,renal disease Neg.screening colonoscopy in 04/2010 except for [...]
[2024-10-01 10:57] LABS: Appearance Urine Clear; Color Urine Yellow; Glucose Urine UA Negative (Negative); Leukocyte Esterase Urine Negative (Negative); Nitrite Urine Negative (Negative); PH 5.5 (5.0-9.0); Urine Blood Negative (Negative); Urine Ketones Negative (Negative); Urine Protein Negative (Neg-Trace)
[2024-10-01 10:59] LABS: Basophils Percent Auto 0.6 % (0-2); Eosinophils Absolute Auto 0.1 X10*3/uL (0.0-0.4); Eosinophils Percent Auto 1.6 % (0-4); Hematocrit 38.9 % (42.0-52.0); Hemoglobin 13.4 g/dl (14.0-18.0); Imm Gran Abs Auto 0.03 X10*3/uL (0.00-0.03); Imm Gran Pct Auto 0.4 % (0.0-0.4); Lymphocytes Absolute Auto 1.7 X10*3/uL (1.2-4.9); Lymphocytes Percent Auto 25.2 % (20-40); Mean Corpuscular HGB Conc 34.4 g/dl (31.0-36.0); Mean Corpuscular Hemoglobin 32.5 pg (27.0-33.0); Mean Corpuscular Volume 94.4 fL (80.0-98.0); Mean Platelet Volume 11.5 fL (9.4-12.4); Monocytes Absolute Auto 0.7 X10*3/uL (0.1-1.2); Monocytes Percent Auto 9.9 % (2-11); Neutrophils Absolute Auto 4.2 x10*3/uL (2.0-8.3); Neutrophils Percent Auto 62.3 % (45-73); Platelet Count 100 X10*3/uL (160-400); Red Blood Count 4.12 X10*6/uL (4.60-5.80); White Blood Count 6.7 X10*3/uL (4.8-10.8)
[2024-10-01 11:10] LABS: Estimated Average Glucose 146 mg/dL; Hemoglobin A1c % 6.7 % (<6.0); Total Hemoglobin (HGBA1C) 3472.2909 umol/L
[2024-10-01 11:51] LABS: TSH reflex Free T4 1.22 uIU/mL (0.32-4.0); Vitamin D 25-OH Total 40.8 ng/mL (>30)
[2024-10-01 12:01] LABS: Anion Gap 11 (12-20)
[2024-10-01 12:06] LABS: Alanine Aminotransferase 49 U/L (0-40); Albumin Level 4.3 g/dL (3.5-5.0); Alkaline Phosphatase 61 U/L (39-117); Aspartate Amino Transferase 36 U/L (5-37); Bilirubin Total 0.3 mg/dL (0.0-1.0); Blood Urea Nitrogen 9 mg/dL (9-16); Calcium 9.5 mg/dL (8.4-10.2); Carbon Dioxide 23 mmol/L (22-29); Chloride 109 mmol/L (96-108); Cholesterol 171 mg/dL (<200); Estimated Glomerular Filt Rate > 60; Glucose Fasting 127 mg/dL (60-99); HDL Cholesterol 40 mg/dL (>40); LDL Cholesterol Calculated 112 mg/dL (<100); Magnesium 1.9 mg/dL (1.6-2.6); Potassium 4.1 mmol/L (3.3-5.1); Sodium 139 mmol/L (135-145); Total Protein 7.8 g/dL (6.5-8.0); Triglycerides 96 mg/dL (<150)
[2024-10-01 12:25] LABS: Creatinine Urine 85.82 mg/dL; Microalbum/Creatinine Ratio Ur 6.9 ug/mg cr (<30)
[2024-10-02 18:44] LABS: C Peptide 3.81 ng/mL (0.80-3.85)
[2024-10-05 15:08] LABS: Glutamic acid decarboxylase Ab <5 IU/mL (<5)
== END 2024-10-01 09:50 | disposition home or self-care (01) ==
LOC: HO.LAB 09:49
PROVIDERS: PCP Internal Medicine; Visit Provider Internal Medicine
DX: D64.9 Anemia, unspecified (principal); E11.9 Type 2 diabetes mellitus without complications; E78.00 Pure hypercholesterolemia, unspecified; E55.9 Vitamin D deficiency, unspecified; E83.42 Hypomagnesemia; R30.0 Dysuria
CPT/HCPCS: 36415; 80053; 80061; 81003; 82043; 82306; 82570; 83036; 83735; 84443; 84681; 85025; 86341

== ENCOUNTER 2024-10-08 12:30 | Outpatient (AMB) | payer MEDICARE, MEDICAID, SELFPAY ==
[2024-10-08 12:46] VITALS: BP 136/84; PULSE 73; O2SAT 99; BMI 28.2
--- NOTE | 2024-10-08 12:46 | A.OFFPC_ITS ---
Vital Signs 10/08/24 12:46 Height 5 ft 2 in Weight 154 lb 2 oz BMI 28.2 BP 136/84 Blood Pressure Location Lt brachial Position Sitting Pulse 73 Pulse Source Pulse Oximeter Pulse Oximetry (%) 99 Oxygen Delivery Method Room Air Intake Visit Reasons: DM, hyperlipidemia Resident Hall Director Required: No Accompanied by: Self / Same As Patient Allergies Gadolinium-Containing Contrast Medi [Gadolinium-Containing Agents] Allergy (Mild, Verified 10/08/24 13:06) PATIENT DEVELOPED HIVES atorvastatin Adverse Reaction (Intermediate, Verified 10/08/24 13:06) severe weakness IVP dye Allergy (Unknown, Uncoded 10/08/24 13:06) hives, rash Medication List - Last Reconciled 10/08/24 by Leander Stokes MD albuterol sulfate 90 mcg/actuation 1 puff PO QID PRN blood sugar diagnostic (OneTouch Ultra Test strips) test daily blood sugar diagnostic (FreeStyle Lite Strips) As directed Once per day blood-glucose meter ([employer] LimitedTouch Ultra2 Meter) test once daily gabapentin 600 mg PO TID 30 days hydroxyzine HCl 25 mg PO TID PRN 30 days lancets (OneTouch UltraSoft 2 Lancet) test once daily lancets (FreeStyle Lancets) As directed once per day lancets (TRUEplus Lancets) As directed magnesium oxide 400 mg PO BID metformin 500 mg PO BID 90 days nabumetone 500 mg PO BID 30 days naloxegol (Movantik) 25 mg PO QAM PRN nicotine 1 patch transdermal DAILY 7 days nicotine 1 patch transdermal DAILY 7 days nicotine 1 patch transdermal Q24H 28 days rosuvastatin 5 mg PO DAILY 30 days Tradjenta (linagliptin) 5 mg PO QAM 90 days NS trazodone 100 mg PO BEDTIME PRN Tobacco use date assessed: 10/08/24 Fall risk assessment: 1 Fall in past year Last assessed Fall Risk: 10/08/24 Dental Screening Dental Screen Date: 10/08/24 HPI DM, hyperlipidemia HPI Details Patient comes in today for his follow-up visit States that he feels okay He denies any headaches or dizziness Denies any chest pains, no shortness of breath No nausea/vomiting, no abdominal pain No change in bowel habits noted He had his follow up labs done last week - to discuss his results Would also like to know how his abdominal US done back in July 2024 came out - US was ordered by Dr. Ricardo He is also reqeusting for some Rx to help him quit smoking States that he has tried the nicotine patches but he just keeps relapsing [facility] Medical History (Updated 10/08/24 @ 13:36 by Leander Stokes MD) Liver cirrhosis Pure hypercholesterolemia Overweight (BMI 25.0-29.9) Constipation History of substance abuse Insomnia Depression GERD (gastroesophageal reflux disease) COPD (chronic obstructive pulmonary disease) Neuropathy Subdural hematoma (~05/2021) Smoker Bilateral flank pain Diabetes mellitus Arthritis Surgical History History of marzena hole surgery (~06/01/21) History of colonoscopy History of lung surgery Family History Father Diabetes Mother Diabetes CVD (cardiovascular disease) Social History Housing: Apartment Alcohol intake: former Patient Tobacco Use Status: Current everyday Tobacco user Tobacco use type: Cigarette Cigarette Packs Per Day: 0.5 Cigarettes Per Day: 5 e-Cigarette/Vaping Use: Never Used Second Hand Smoke Exposure: Yes service: No Current occupational status: disabled Cognitive needs: No Hearing needs: No Vision needs: Yes (Glasses) Questionnaire PHQ-9 Over the last 2 weeks, how often have you been bothered by any of the following problems? 1. Little interest or pleasure in doing things: not at all 2. Feeling down, depressed, or hopeless: not at all 3. Trouble falling or staying asleep, or sleeping too much: not at all 4. Feeling tired or having little energy: not at all 5. Poor appetite or overeating: not at all 6. Feeling bad about yourself - or that you are a failure or have let yourself or your family down: not at all 7. Trouble concentrating on things, such as reading the newspaper or watching television: not at all 8. Moving or speaking so slowly that other people could have noticed. Or the opposite - being so fidgety or restless that you have been moving around a lot more than usual: not at all 9. Thoughts that you would be better off or of hurting yourself in some way: not at all Total score: 0 Depression Screening Interpretation: Negative Depression Screening Done: Yes 03507 - PHQ-9 Billing: Yes Source: Developed by Drs. Ethan Castañeda, Zully Hartman, Dillon Corrales and colleagues, with an educational rivas from [employer]. Thrive Questionnaire Date Thrive assessed: 10/08/24 I am a: Patient What is your living situation today?: I have a steady place to live Within the past 12 months, did the food you bought not last and you didn't have the money to get more?: Never true Within the past 12 months, did you worry whether your food would run out before you got money to buy more?: Never true Do you have trouble paying for medicines?: No Do you have trouble getting transportation to medical appointments?: No Do you have trouble paying your heating and electricity bill?: No Do you have trouble taking care of your child, family member or friend?: No Do you have trouble with day-to-day activities such as bathing, preparing meals, shopping, managing finances, etc.?: No Are you currently unemployed and looking for a job?: No Are you interested in more education?: No Please select the resources that you would like help with: None Currently or been in a relationship where the following occur: No concerns reported THRIVE Score: 0 AUDIT C Alcohol Use Questionnaire (AUDIT-C) 1. How often do you have a drink containing alcohol?: Never 2. How many drinks containing alcohol do you have on a typical day when you are drinking?: 1 or 2 3. How often do you have six or more drinks on one occasion?: Never Total Score: 0 Score Reviewed/Action Taken: Yes LEONIE-7 AMB Questionnaire LEONIE-7 Date LEONIE - 7 assessed: 10/08/24 Feeling nervous, anxious, or on edge: 0 = Not at all Not being able to stop or control worryin = Not at all Worrying too much about different things: 0 = Not at all Trouble relaxin = Not at all Being so restless that it is hard to sit still: 0 = Not at all Becoming easily annoyed or irritable: 0 = Not at all Feeling afraid as if something awful might happen: 0 = Not at all Total LEONIE-7 score (0-4 normal; 5-9 mild; 10-14 moderate; 15-21 severe): 0 Source: Developed by Drs. Ethan Castañeda, Zully Hartman, Dillon Corrales and colleagues, with an educational rivas from [employer]. Review of Systems Const Denies chills, Denies fatigue, Denies fever(s) and Denies headache(s) ENT Denies dysphagia, Denies dizziness, Denies otalgia, Denies headache(s), Denies neck pain, Denies odynophagia and Denies sore throat Card Denies chest pain, Denies palpitations and Denies dyspnea Resp Denies chest congestion, Reports cough (on and off; coughs up thick whitish phlegm at times) and Denies dyspnea GI Denies abdominal pain (but feels (+) recurrent L-sided abdominal mass ), Denies constipation, Denies dysphagia, Denies heartburn, Denies diarrhea, Denies nausea, Denies odynophagia and Denies vomiting Denies dysuria, Denies nocturia and Denies urinary frequency Musc Reports back pain, Reports arthralgias (over multiple joints, including both hips and the left shoulder), Denies neck pain, Reports numbness and Reports tingling (occasional) Skin/Breast Denies rash Neuro Denies dizziness, Denies headache(s), Reports numbness, Reports tingling (occasional) and Reports paresthesias (over both feet, increasing) Psych Reports anxiety Endo Denies fatigue and Denies palpitations Physical exam (Primary Care) Vital Signs: Last Vital Signs Pulse 73 10/08/24 12:46 BP 136/84 10/08/24 12:46 Pulse Ox 99 10/08/24 12:46 Oxygen Delivery Method Room Air 10/08/24 12:46 BMI result Body Mass Index 28.2 Tobacco/Smoking Status: Tobacco use Status Tobacco use date assessed 10/08/24 10/08/24 12:49 Patient Tobacco Use Status Current everyday Tobacco 10/08/24 12:49 Tobacco use type Cigarette 10/08/24 12:49 e-Cigarette/Vaping Use Never Used 10/08/24 12:49 PHQ-9: PHQ-9 Score PHQ-9: Total score 0 10/08/24 12:49 Depression Screening Interpretation: Negative Thrive Assessment: Date of Thrive Assessment Date Thrive assessed 10/08/24 10/08/24 12:49 Currently or been in a relationship where the following occur: No concerns reported Const General: no acute distress and alert HENMT Ears: TM's normal bilaterally and EAC's normal Throat: Yes posterior oropharynx normal and Yes tonsils normal (no TP congestion) Neck Neck: Yes supple and No lymphadenopathy Thyroid: Thyroid normal Resp Auscultation: no crackles, no rales, no wheezes and diminished lung sounds (slightly) bilateral Cardio Rate: regular rate Rhythm: regular rhythm Heart sounds: no murmurs GI Palpation (GI): Soft to palpation, nontender, no hernias and no masses Auscultation: normal bowel sounds General: Yes no CVA tenderness Back/Spine/Pelvis Back: no CVA tenderness Thoracic/Lumbar Spine: lumbar spinal tenderness Skin Rashes: no rashes Extrem General: Yes no clubbing, cyanosis or edema Right upper extremity: shoulder/upper arm Details: tenderness Location: of the A-C joint Left upper extremity: shoulder/upper arm Details: tenderness Location: of the A- C joint Right lower extremity: hip/thigh Details: tenderness Location: of the hip Left lower extremity: hip/thigh Details: tenderness Location: of the hip Results Reviewed Results Reviewed: Laboratory Tests 08/06/23 10/01/24 09:39 10:25 WBC 5.4 6.7 Hgb 14.6 13.4 L Hct 42.3 38.9 L Plt Count 106 L 100 L Sodium 139 139 Potassium 4.4 4.1 Creatinine 0.96 0.81 Estimated GFR > 60 > 60 Fasting Glucose 130 H 127 H Hemoglobin A1c % 6.7 H C-Peptide 3.81 Calcium 9.5 Magnesium 1.9 AST 36 ALT 49 H Triglycerides 96 Cholesterol 171 LDL Cholesterol, Calc 112 H HDL Cholesterol 40 L 25-OH Vitamin D Total 40.8 TSH 1.22 Ur Specific [place] 1.020 Urine Protein Negative Urine Glucose (UA) Negative Urine Blood Negative Urine Nitrite Negative Ur Leukocyte Esterase Negative Microalb/Creat Ratio 6.9 LEONIE Antibody <5 Coding Level of Care Code Est Pt Level 4 (58362) Diagnoses Pure hypercholesterolemia E78.00 Type 2 diabetes mellitus without complication, without long-term current use of insulin E11.9 Diabetes mellitus type: type 2 Diabetes mellitus buttermaker helper insulin use: without buttermaker helper use Diabetes mellitus complication status: without complication Chronic obstructive pulmonary disease, unspecified COPD type J44.9 COPD type: unspecified COPD Opacity of lung on imaging study R91.8 Alcoholic cirrhosis of liver without ascites K70.30 Hepatic cirrhosis type: alcoholic cirrhosis Ascites presence: without ascites Neuropathy G62.9 Multiple joint pain M25.50 Muscle cramps R25.2 Subdural hematoma S06.5X9A History of hepatitis C Z86.19 Constipation, unspecified constipation type K59.00 Constipation type: unspecified constipation type Insomnia, unspecified type G47.00 Insomnia type: unspecified Anxiety F41.9 Smoker F17.200 Overweight (BMI 25.0-29.9) E66.3 Additional Codes PHQ-9 - 36841 - PHQ-9 Billing: Yes ([id number]) Assessment & Plan Assessment & Plan (1) Pure hypercholesterolemia: Code(s): E78.00 - Pure hypercholesterolemia, unspecified Category: Medical Plan: Results of his labs done last week reviewed and discussed with patient - his cholesterol levels have improved significantly from his previous numbers back in July 2023 Reinforced low cholesterol diet Continue Rosuvastatin 5 mg QD - states that he has been tolerating this Rx without any problems so far He could not tolerate Atorvastatin 10 mg QD in the past due to increased generalized weakness while he was on the medication Will have him recheck his labs and fasting lipids in 4 months for follow up (2) Diabetes mellitus: Code(s): E11.9 - Type 2 diabetes mellitus without complications Category: Medical Qualifiers: Diabetes mellitus type: type 2 Diabetes mellitus buttermaker helper insulin use: without buttermaker helper use Diabetes mellitus complication status: without complication Qualified Code(s): E11.9 - Type 2 diabetes mellitus without complications Plan: His HgbA1c was at 6.7% on his labs done last week (his in-office HgbA1c was at 7.1% a few months ago) - goal is at least <7.0% His C-peptide level and LEONIE Ab also both came back normal, confirming that he is NOT insulin-requiring Reinforced diabetic diet Continue Metformin 500 mg BID and Tradjenta 5 mg QD (Rx refilled) (3) COPD (chronic obstructive pulmonary disease): Code(s): J44.9 - Chronic obstructive pulmonary disease, unspecified Category: Medical Qualifiers: COPD type: unspecified COPD Qualified Code(s): J44.9 - Chronic obstructive pulmonary disease, unspecified Plan: Continue Albuterol HFA 2 inhalations every 6 hours as needed Chest x-rays done back in August 2023 revealed that the previous mild right basilar opacity appears increased when compared with chest radiographs dating back to 08/29/2015. CT scan without intravenous contrast was recommended for further evaluation (4) Opacity of lung on imaging study: Code(s): R91.8 - Other nonspecific abnormal finding of lung field Category: Medical Plan: Chest CT done in December 2023 revealed (+) multiple small pulmonary nodules are unchanged since 2019 CT scan and therefore benign. There are also moderate em physematous changes noted on his chest CT Patient has been reassured of these findings (5) Liver cirrhosis: Code(s): K74.60 - Unspecified cirrhosis of liver Category: Medical Qualifiers: Hepatic cirrhosis type: alcoholic cirrhosis Ascites presence: without ascites Qualified Code(s): K70.30 - Alcoholic cirrhosis of liver without ascites Plan: (+) Hx of liver cirrhosis secondary to alcohol abuse and hepatitis C His hepatitis C was treated back in 2015 and patient states that he has been completely abstinent for about 4 years now (since 2019) Repeat abdominal US done back in July 2024 revealed findings indicative of a high elastography value suggestive of advanced chronic liver disease Follow up with GI (Dr. Ricardo) as scheduled (6) Neuropathy: Code(s): G62.9 - Polyneuropathy, unspecified Category: Medical Plan: NCV & EMG done back on 12/29/2017 revealed (+) mild sensory and motor peripheral neuropathy; he was sent for repeat studies a couple of years ago but he canceled his appointment as he did not want to get this repeated Continue Gabapentin 600 mg TID His B12, ESR, CRP, TSH were all normal when checked at the time Will consider repeating NCV & EMG if his symptoms persist or get worse (7) Multiple joint pain: Code(s): M25.50 - Pain in unspecified joint Category: Medical Plan: X-rays of his left shoulder done in December 2023 revealed (+) mild osteoarthritic changes in the acromioclavicular and glenohumeral joints as well as faint linear calcification adjacent to the humeral head suggestive of tendinitis Will consider referring him to orthopedics for further evaluation and management if his symptoms persist or progress Continue Nabumetone 500 mg BID PRN He was referred to rheumatology for further evaluation and management of his joint pains and he was scheduled to be seen for initial visit back in October 2022 but it appears that he never went for his appt Will revisit rheumatology referral later on but he wants to concentrate on quitting smoking first (8) Muscle cramps: Code(s): R25.2 - Cramp and spasm Category: Medical Plan: Continue Mag-Ox 400 mg BID PRN (9) Subdural hematoma: Onset Date: ~05/2021 Comment: right-sided; S/P [place] hole drainage by Dr. Elmore on 06/01/2021 Code(s): S06.5X9A - Traumatic subdural hemorrhage with loss of consciousness of unspecified duration, initial encounter Category: Medical Plan: This is resolved and patient currently has very little residual neurologic deficits (10) History of hepatitis C: Comment: S/P treatment Code(s): Z86.19 - Personal history of other infectious and parasitic diseases Category: Medical Plan: S/P Tx Hepatitis C viral load rechecked in August 2022 came out negative Follow up with GI as scheduled (11) Constipation: Code(s): K59.00 - Constipation, unspecified Category: Medical Qualifiers: Constipation type: unspecified constipation type Qualified Code(s): K59.00 - Constipation, unspecified Plan: He is encouraged again on increased oral fluids and dietary fiber Continue Movantik 25 mg QD PRN (12) Insomnia: Code(s): G47.00 - Insomnia, unspecified Category: Medical Qualifiers: Insomnia type: unspecified Qualified Code(s): G47.00 - Insomnia, unspecified Plan: Sleep hygiene reinforced Continue Trazodone 100 mg Q HS PRN (13) Anxiety: Code(s): F41.9 - Anxiety disorder, unspecified Category: Medical Plan: Continue Hydroxyzine 25 mg TID PRN (14) Smoker: Code(s): F17.200 - Nicotine dependence, unspecified, uncomplicated Category: Social Hx Plan: Patient is counseled again on smoking cessation He has tried and failed on Nicotine patches recently Will now try him on Varenicline - to take Rx as instructed (15) Overweight (BMI 25.0-29.9): Code(s): E66.3 - Overweight Category: Medical Plan: Reinforced diet/exercise as tolerated/lose weight Plan Follow up in 4 months Orders: Orders Complete Blood Count Auto Diff 4 Months D64.9 - Anemia, unspecified UA CC w/rflx Micro + Cult 4 Months R30.0 - Dysuria Magnesium 4 Months E83.42 - Hypomagnesemia Vitamin B12 and Folate 4 Months E53.8 - Deficiency of other specified B group vitamins Lipid Panel 4 Months E78.00 - Pure hypercholesterolemia, unspecified Comprehensive [place]. Panel Fast 4 Months E78.00 - Pure hypercholesterolemia, unspecified Hemoglobin A1c 4 Months E11.9 - Type 2 diabetes mellitus without complications TSH reflex Free T4 4 Months E78.00 - Pure hypercholesterolemia, unspecified Vitamin D 25-OH Total 4 Months E55.9 - Vitamin D deficiency, unspecified Medications: New varenicline tartrate administer on days 4, 5, and 6 of therapy 0.5 mg PO BID 3 days 6 tabs 0RF varenicline tartrate 1 mg PO BID 28 days 56 tabs 3RF varenicline tartrate administer on days 1, 2, and 3 of therapy 0.5 mg PO DAILY 3 days 3 tabs 0RF Refilled Tradjenta (linagliptin) 5 mg PO QAM 90 days 90 tabs 1RF NS Discontinued nicotine Discontinued Reason: Patient Completed Course 1 patch transdermal DAILY 7 days 7 ea 0RF F17.200 - Nicotine dependence, unspecified, uncomplicated nicotine Discontinued Reason: Patient Completed Course 1 patch transdermal DAILY 7 days 7 ea 0RF F17.200 - Nicotine dependence, unspecified, uncomplicated nicotine Discontinued Reason: Doctor's Order 1 patch transdermal Q24H 28 days 28 ea 5RF F17.200 - Nicotine dependence, unspecified, uncomplicated
--- OUTSIDE RECORDS SUMMARY | 2024-10-08 14:39 | XMS_ITS ---
Author Organization [facility] Address [address] [place] [address] Care Team Providers Care Etiquette Teacher Name Role Phone Kike CROFT, Leander Primary Care Provider Ethan Keys Unavailable [phone] ALLERGIES Allergen (clinical drug ingredient) Drug/Non Drug [...] screening (Z12.11) Active confirmed Colon cancer screening ([id number]) VITAL SIGNS Temperature 97.7 degrees Fahrenheit 07/11/20 24 Blood pressure systolic 000 mm Hg 07/11/20 24 Blood pressure diastolic 00 mm Hg 024 Height 65.24 in 07/11/2024 Weight 153 lb 2 oz lbs 07/11/2024 BMI 25.29 kg/m2 07/11/2024 Encounters Encounter Location Date Provider Diagnosis [facility] [address] [place] [address] 07/11/2024 Ethan Ricardo Hepatic cirrhosis, unspecified hepatic [...] 01:20:00 PM, [address], [address], [place], [address], Progress Notes * Examination Category Sub-Category Detail [...]
--- OUTSIDE RECORDS SUMMARY | 2024-10-08 14:39 | XMS_ITS | Patient Health Record ---
Author Organization [facility] Address [address] [place] [phone] Care Team Providers Care Keno Manager Name Role Phone Leander Stokes MD Primary Care Provider Unava Ethan Ward [phone] ALLERGIES Allergen (clinical drug ingredient) Drug/Non Drug Allergy documented on EMR Reaction Allergy Type Onset Date Status IVP Dye contrast (uncoded) Unknown Allergy Active RESULTS Component Value Reference Range Notes US abdomen comp w elastograp hy (Not yet reviewed by provider) Interpretation: Performing Lab: Notes/Report: [address] [address] Ultrasound Report Signed Patient: Hernandez Ordoñez MR#: [id number] : 1955 Acct:[id number] Age/Sex: 68 / M ADM Date: 07/25/24 Loc: HO.US Attending Dr: Ethan Ricardo MD Ordering Physician: Ethan Ricardo MD Date of Service: 07/25/24 Procedure(s): US abdomen comp w elastography Accession Number(s): [id number] cc: Leander Stokes MD; Ethan Ricardo MD [...] in OV> 09/04/24922 DD/ 5 TD/TT: 07/25/24934 Robotics Specialist: REASON FOR REFERRAL No Information MEDICATIONS Medication [...] screening (Z12.11) Active confirmed Colon cancer screening ([id number]) Problem Other cirrhosis of liver (K74.69) Active confirmed Problem Chronic hepatitis C without hepatic coma (B18.2) Active confirmed [id number] Problem History of hepatitis C (Z86.19) Active confirmed [id number] Problem Hepatic cirrhosis, unspecified hepatic cirrhosis type (K74.60) Active confirmed VITAL SIGNS Temperature 97.7 degrees Fahrenheit 07/11/2024 Blood pressure diastolic 00 mm Hg 07/11/2024 Height 65.24 in 07/11/2024 Blood pressure systolic 000 mm Hg 07/11/2024 Weight 153 lb 2 oz lbs 07/11/2024 BMI 25.29 kg/m2 07/11/2024 Encounters Encounter Location Date Provider Diagnosis [facility] [address] [place] [phone] 07/11/2024 Ethan Ricardo Hepatic cirrhosis, unspecified hepatic [...] Test Test Name Order Date LIVER PROFILE 12/21/2018 LIVER PROFILE 05/23/2015 LIVER PROFILE 06/02/2016 LIVER PROFILE 11/05/2015 LIVER PROFILE 07/11/2024 CBC w DIFF 11/05/2015 CBC w DIFF [...] Provider Name:Ethan Ricardo , 01/09/2025 01:20:00 PM, [address] [place] [address], [address], [place], [address], Insurance Providers Payer Name Payer Address Payer Phone Subscriber Number Group Number Insured Name Patient Relationship to Insured Coverage Start Date Coverage End Date MEDICARE OF [place] [address] [place] [address] [id number] HERNANDEZ ORDOÑEZ Self - patient is the insured MEDICAID OF [facility] [place] [address] [place] [address] [phone] [id number] HERNANDEZ ORDOÑEZ Self - patient is the insured MEDICAL (GENERAL) HISTORY Medical History History ICD Code Chronic Hep C- Genotype 1a, liver bx 08/2004 with Grade 2/4 and Stage III/IV-treated with 26 wks of Peg-IF and Ribavirin in [id number] with nondetectable viral load, but had to [...] and in 05/2017 Gallstones-asymptomatic Asthma NIDDM Denies [place],CVA,renal disease Neg.screening colonoscopy in 04/2010 except for [...]
== END 2024-10-08 13:25 | disposition home or self-care (01) ==
PROVIDERS: PCP Internal Medicine; Visit Provider Internal Medicine
DX: E11.42 Type 2 diabetes mellitus with diabetic polyneuropathy (principal); J44.9 Chronic obstructive pulmonary disease, unspecified; K70.30 Alcoholic cirrhosis of liver without ascites; S06.5X9A Traumatic subdural hemorrhage with loss of consciousness of unspecified duration, initial encounter; E78.00 Pure hypercholesterolemia, unspecified; R91.8 Other nonspecific abnormal finding of lung field; G62.9 Polyneuropathy, unspecified; M25.50 Pain in unspecified joint; R25.2 Cramp and spasm; Z86.19 Personal history of other infectious and parasitic diseases; K59.00 Constipation, unspecified; G47.00 Insomnia, unspecified

== ENCOUNTER → 2024-10-08 12:30 | Outpatient (BNVA) | payer MEDICARE, MEDICAID, SELFPAY | PROVIDERS: PCP Internal Medicine; Visit Provider Internal Medicine | DX: E78.00 Pure hypercholesterolemia, unspecified (principal); E11.9 Type 2 diabetes mellitus without complications; J44.9 Chronic obstructive pulmonary disease, unspecified; R91.8 Other nonspecific abnormal finding of lung field; K70.30 Alcoholic cirrhosis of liver without ascites; G62.9 Polyneuropathy, unspecified; M25.50 Pain in unspecified joint | CPT/HCPCS: 96127; 99212 ==

== ENCOUNTER → 2024-12-06 23:59 | Outpatient (BNV) | payer MEDICARE, MEDICAID, SELFPAY | PROVIDERS: PCP Internal Medicine; Visit Provider Internal Medicine | DX: R42 Dizziness and giddiness (principal); I69.398 Other sequelae of cerebral infarction; I10 Essential (primary) hypertension | CPT/HCPCS: G0180 ==

== ENCOUNTER 2024-12-19 14:53 | Outpatient (AMB) | payer MEDICARE, MEDICAID, SELFPAY ==
--- OUTSIDE RECORDS SUMMARY | 2024-12-19 14:56 | XMS_ITS | Patient Health Record ---
Author Organization [facility] Address [address] [place] [address] Care Team Providers Care Category Specialist Name Role Phone Leander Stokes MD Primary Care Provider Unava Ethan Ward [phone] Allergies Allergen (clinical drug ingredient) Drug/Non Drug Allergy documented on EMR Reaction Allergy Type Onset Date Status IVP Dye contrast (uncoded) Unknown Allergy Active Results Component Value Reference Range Notes US abdomen comp w elastograp hy (Not yet reviewed by provider) Interpretation: Performing Lab: Notes/Report: [address] [address] Ultrasound Report Signed Patient: Hernandez Ordoñez MR#: [id number] : 1955 Acct:[id number] Age/Sex: 68 / M ADM Date: 07/25/24 Loc: HO.US Attending Dr: Ethan Ricardo MD Ordering Physician: Ethan Ricardo MD Date of Service: 07/25/24 Procedure(s): US abdomen comp w elastography Accession Number(s): [id number] cc: Leander Stokes MD; Ethan Ricardo MD [...] in OV> 09/04/24922 DD/ 5 TD/TT: 07/25/24934 Technical Support Professional: [place] [id number] Ultrasound Report Signed Patient: Hernandez Ordoñez MR#: [id number] : 1955 Acct:[id number] Age/Sex: 68 / M ADM Date: 07/25/24 Loc: HO.US Attending Dr: Ethan Ricardo MD Ordering Physician: Ethan Ricardo MD Date of Service: 07/25/24 Procedure(s): US abd omen comp w elastography Accession Number(s): [id number] cc: Leander Stokes MD; Ethan Ricardo MD EXAMINATION: US ABDO MEN COMPLETE WITH LIVER ELASTOGRAPHY HISTORY: h/o hep. C, hepatic cirrhosis TECHNIQUE: Real-time grayscale ultrasound imaging of the abdomen was performed and images were reviewed. COMPARISON: Comparis on is made with the prior examination dated 01/08/2019. FINDINGS: Liver: The liver is normal in size, but demonstrates heterogeneous echotexture. The quin er demonstrates a lobulated contour, suggestive of cirrhosis. No focal mass or intrahepatic biliary ductal dilatation is identified. There is normal hepatopedal flow in the portal vein. Ultrasound elastogra phy of the liver was performed with 10 separate measurements of the liver parenchyma with the patient in the supine position. Measuremen ts were obtained approximately 2 cm below Urbano's capsule an d perpendicular to the capsule. Images are of satisfactory quality. The median shear wav e velocity is 1.73 m/s. The interquartile ra nge/median (IQR/median) is 0.06. Gallbladder and bili deepika tree: The gallbladder is unremarkable, without evidence of calculi, wall thickening, or pericholecystic fluid. There is no sonographic Mu rphy sign. The common bile duct is normal in caliber measuring 6 mm. Kidneys: The right k idney measures 10.6 cm in length. The left kidney measures 11.0 cm in length. The kidneys are unremarkable, without evidence of masses, hydronephrosis, or calculi. Pancreas: The pancre atic head, neck, and body are unremarkable. The pancreatic tail is o bscured by bowel gas. Spleen: The spleen i s normal in size and contour, measuring 10.9 cm in length. Abdominal aorta and inferior vena cava: The visualized portions of the abdominal aorta and inferior vena cava are normal in caliber. There is no free flu id in the abdomen. U S/US abdomen comp w elastography IMPRESSION: Heterogeneous hepati c echotexture. Lobulated hepatic contour, suggestive of cirrhosis. The median shear wav e velocity is 1.73 m/s, corresponding to a median liver stiffness of 9 .18 kPa. The IQR/median value is 0.06. This is indicative of a qual ity data set. Findings are indicat lianet of a high elastography value suggestive of advanced chronic liver disease. REFERENCE: Society of Radiologi sts in Ultrasound Liver Stiffness Thresholds (2020): LIVER STIFFNESS THRESHOLDS: *Shear wave velocity less than 1.3 m/s (Liver Stiffness equal or less than 5 kPa): High pr obability of being normal. *Shear wave velocity less than 1.7 m/s (Liver Stiffness less than 9 kPa): In the absence of other known clinical signs, rules out compensated advanced chronic liver disease. *Shear wave velocity between 1.7-2.1 m/s (Liver Stiffness 9-13 kPa): Suggestive of compen sated advanced chronic liver disease but need further test for confirmation. *Shear wave velocity between 2.1-2.4 m/s (Liver Stiffness 13-17 kPa): Rules in compensated advanced chronic liver disease. *Shear wave velocity greater than 2.4 m/s (Liver Stiffness over 17 kPa): Suggestive of clinically significant portal hypertension. QUALITY OF DATA SET: *IQR/Median value eq ual or less than 0.15 implies a quality data set. *IQR/Median value ov er 0.15 implies a poor quality data set. SIGNIFICANT CHANGE F ROM PRIOR EXAM: Significant change i f liver stiffness measurement is 10% or greater from prior exam. OTHER CONSIDERATIONS: The stage of liver f ibrosis may be overestimated in the setting of acute hepatitis, quin er inflammation, elevated liver function tests, hepatic vascular con gestion, obstructive cholestasis, non-fasting state, and infiltrat lianet diseases such as amyloidosis and lymphoma. In some patients with N AFLD, the liver stiffness thresholds for compensated advanced chronic liver disease may be lower. In causes other than viral hep atitis and NAFLD, liver stiffness thresholds are not well established. Electronically maximo d by: Ethan Poole MD 09/04/2024 09:23 AM EST Dictated By: Ethan Poole MD Signed By: <Nicola olivo signed by Ethan Poole MD in OV> 09/04/24922 DD/ 5 TD/TT: 07/25/24934 Technical Support Professional: Reason For Referral No Information Medications Medication SIG (Take, Route, Frequency, Duration) Notes [...] at bedtime Orally Once a day Active Immunizations Vaccine Route Administration Date Status Comme nts Influenza Unknown 12/21/2018 Refused Influenza Unknown 07/11/2024 Refused Social History Tobacco Use: Social History Observation Description Date Details (start date - stop date) Current Smoker NA - NA Tobacco Use/Smoking Question Answer Notes Patient is [...] Never (0 point) Points 2 Interpretation Negative Section Notes: Smoker; no drugs/alcohol x 1 2 yrs Smoker 1/3 of a pack per day ; no drugs/alcohol > 12 yrs Nonsmoker since early 2015; no drugs/alcohol > 12 yrs Nonsmoker since early 2015; no drugs/alcohol > 12 yrs Smoker 2 cigs QD; still usin g IV drugs and alcohol as of the 12/21/18 OV Smoker 2-3 cigs QD; still using IV drugs and alcohol as of the 12/21/18 OV Reports sobriety from drugs and alcohol since 2019 Problems Problem Type SNOMED Code ICD Code Onset Dates Problem Status W/U Status Risk Notes Problem Colon cancer screening (224322837) Colon cancer screening (Z12.11) Active confirmed Problem Other cirrhosis of liver (K74.69) Active confirmed Problem 641547822 Chronic hepatitis C without hepatic coma (B18.2) Active confirmed Problem 75385202181400 History of hepatitis C (Z86.19) Active confirmed Problem Hepatic cirrhosis, unspecified hepatic cirrhosis type (K74.60) Active confirmed Vital Signs Temperature 97.7 degrees Fahrenheit 07/11/2024 Blood pressure diastolic 00 mm Hg 07/11/2024 Height 65.24 in 07/11/2024 Blood pressure systolic 000 mm Hg 07/11/2024 Weight 153 lb 2 oz lbs 07/11/2024 BMI 25.29 kg/m2 07/11/2024 Encounters Encounter Location Date Provider Diagnosis [facility] [address] [place] [address] 07/11/2024 Ethan Ricardo Hepatic cirrhosis, unspecified hepatic cirrhosis type K74.60 ; History of hepatitis C Z86.19 and Colon cancer screening Z12.11 Assessments Encounter Date Diagnosis (ICD Code) Assessment Notes Treatment Notes Treatment Clinical Notes Section Notes 07/11/2024 History of hepatitis C (ICD-10 - Z86.19) Overall, Hernandez appears quite well considering his previous long-standing history of drug and alcohol abuse. We did have a detailed discussion today that obviously his sobriety has helped to keep him stable and looking as well as he does. We did review that we Need to reassess his liver disease given that it has been a good number of years since I have seen him. I am going to have him undergo a followup abdominal ultrasound, as well as laboratories in regard to the underlying chronic liver disease including alpha-fetoprotei n level, liver profile, PT with INR, CBC with platelet count, and followup hepatitis C viral load. I did encourage him to continue his ongoing sobriety. I did advise him that I would like to see him again in 6 months for followup visit. At that point we shall review things further and if things are remaining stable I will plan to recommend a followup colonoscopy For screening purposes since his last exam was back in 2009. I did advise Hernandez to contact me prior to that if he has any problems or questions I can be of assistance with. He was comfortable with this plan. Thank you again for allowing me to participate in Hernandez's care. I shall continue to keep you advised of this progress. 07/11/2024 Hepatic cirrhosis, unspecified hepatic cirrhosis type (ICD-10 - K74.60) Overall, Hernandez appears quite well considering his previous long-standing history of drug and alcohol abuse. We did have a detailed discussion today that obviously his sobriety has helped to keep him stable and looking as well as he does. We did review that we Need to reassess his liver disease given that it has been a good number of years since I have seen him. I am going to have him undergo a followup abdominal ultrasound, as well as laboratories in regard to the underlying chronic liver disease including alpha-fetoprotei n level, liver profile, PT with INR, CBC with platelet count, and followup hepatitis C viral load. I did encourage him to continue his ongoing sobriety. I did advise him that I would like to see him again in 6 months for followup visit. At that point we shall review things further and if things are remaining stable I will plan to recommend a followup colonoscopy For screening purposes since his last exam was back in 2009. I did advise Hernandez to contact me prior to that if he has any problems or questions I can be of assistance with. He was comfortable with this plan. Thank you again for allowing me to participate in Hernandez's care. I shall continue to keep you advised of this progress. 07/11/2024 Colon cancer screening (ICD-10 - Z12.11) Overall, Hernandez appears quite well considering his previous long-standing history of drug and alcohol abuse. We did have a detailed discussion today that obviously his sobriety has helped to keep him stable and looking as well as he does. We did review that we Need to reassess his liver disease given that it has been a good number of years since I have seen him. I am going to have him undergo a followup abdominal ultrasound, as well as laboratories in regard to the underlying chronic liver disease including alpha-fetoprotei n level, liver profile, PT with INR, CBC with platelet count, and followup hepatitis C viral load. I did encourage him to continue his ongoing sobriety. I did advise him that I would like to see him again in 6 months for followup visit. At that point we shall review things further and if things are remaining stable I will plan to recommend a followup colonoscopy For screening purposes since his last exam was back in 2009. I did advise Hernandez to contact me prior to that if he has any problems or questions I can be of assistance with. He was comfortable with this plan. Thank you again for allowing me to participate in Hernandez's care. I shall continue to keep you advised of this progress. Plan Of Treatment Pending Test Test Name Order Date LIVER PROFILE 12/21/2018 LIVER PROFILE 07/11/2024 LIVER PROFILE 06/02/2016 LIVER PROFILE 05/23/2015 LIVER PROFILE 11/05/2015 CBC w DIFF 05/23/2015 CBC w DIFF 11/05/2015 CBC w DIFF 04/10/2013 CBC w DIFF 12/21/2018 CBC w DIFF 07/11/2024 PROTHROMBIN TIME (PT, INR) 04/10/2013 PROTHROMBIN TIME (PT, INR) 12/21/2018 ALPHA-FETOPROTEIN,TUMOR MARKER 6 ALPHA-FETOPROTEIN,TUMOR MARKER 3 ALPHA-FETOPROTEIN,TUMOR MARKER 4 ALPHA-FETOPROTEIN,TUMOR MARKER 9 HEPATITIS C VIRAL LOAD 12/21/2018 HEPATITIS C VIRAL LOAD 05/23/2015 HEPATITIS C VIRAL LOAD 11/05/2015 HEPATITIS C VIRAL LOAD 07/11/2024 HEPATITIS C VIRAL LOAD 06/02/2016 HCV LIVER FIBROSIS, FIBRO TEST 4 Prothrombin Time INR 07/11/2024 US abdomen comp w elastography US abdomen comp w elastography Next Appt Details Provider Name:Ethan Ricardo , 01/09/2025 01:20:00 PM, [address], [address], [place], [address], Insurance Providers Payer Name Payer Address Payer Phone Subscriber Number Group Number Insured Name Patient Relationship to Insured Coverage Start Date Coverage End Date MEDICARE OF [place] [address] [place] [id number] [phone] [id number] HERNANDEZ ORDOÑEZ Self - patient is the insured MEDICAID OF [employer] [address] [place] [address] [id number] SMITA HERNANDEZ Self - patient is the insured Medical (General) History Medical History History ICD Code Chronic Hep C- Genotype 1a, liver bx 08/2004 with Grade 2/4 and Stage III/IV-treated with 26 wks of Peg-IF and Ribavirin in [id number] with nondetectable viral load, but had to [...] and in 05/2017 Gallstones-asymptomatic Asthma NIDDM Denies [place],CVA,renal disease Neg.screening colonoscopy in 04/2010 except for [...]
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
--- NOTE | 2024-12-19 15:04 | A.OFFPC_ITS ---
Vital Signs 12/19/24 15:05 Height 5 ft 2 in Weight 147 lb 4 oz BMI 26.9 BP 110/60 Blood Pressure Location Lt brachial Position Sitting Pulse 78 Pulse Source Pulse Oximeter Temp 97.3 F Temp Source Temporal Artery Scan Pulse Oximetry (%) 98 Oxygen Delivery Method Room Air Intake Visit Reasons: [facility] 11/27 Intake Note: Patient is here to follow-up after a visit the emergency department at [facility] on 11/27/24 Senior Policy Associate Required: No Equipment Driver: Not Required per policy Accompanied by: Self / Same As Patient Allergies Gadolinium-Containing Contrast Medi [Gadolinium-Containing Agents] Allergy (Mild, Verified 12/19/24 15:26) PATIENT DEVELOPED HIVES atorvastatin Adverse Reaction (Intermediate, Verified 12/19/24 15:26) severe weakness IVP dye Allergy (Unknown, Uncoded 12/19/24 15:26) hives, rash Medication List - Last Reconciled 12/19/24 by KRISH Garcia albuterol sulfate 90 mcg/actuation 1 puff PO QID PRN aspirin (Adult Low Dose Aspirin) 81 mg PO DAILY blood sugar diagnostic (OneTouch Ultra Test strips) test daily blood sugar diagnostic (FreeStyle Lite Strips) As directed Once per day blood-glucose meter (OneTouch Ultra2 Meter) test once daily gabapentin 600 mg PO TID 30 days hydroxyzine HCl 25 mg PO TID PRN 30 days lancets (OneTouch UltraSoft 2 Lancet) test once daily lancets (FreeStyle Lancets) As directed once per day lancets (TRUEplus Lancets) As directed magnesium oxide 400 mg PO BID metformin 500 mg PO BID 90 days nabumetone 500 mg PO BID 30 days naloxegol (Movantik) 25 mg PO QAM PRN rosuvastatin 5 mg PO DAILY 30 days Tradjenta (linagliptin) 5 mg PO QAM 90 days NS trazodone 100 mg PO BEDTIME PRN varenicline tartrate 0.5 mg PO BID 3 days varenicline tartrate 1 mg PO BID 28 days varenicline tartrate 0.5 mg PO DAILY 3 days Tobacco use date assessed: 12/19/24 Fall risk assessment: No Falls in past year Last assessed Fall Risk: 12/19/24 Dental Screening Dental Screen Date: 10/08/24 HPI [facility] 4/22 HPI Details The patient is a 69-year-old male with history of hypertension, diabetes mellitus type 2, bronchial asthma, alcohol and IV use in the past, subdural hematoma status post evacuation, presenting to follow up appointment due to [facility] ER visit. The patient went to [facility] emergency for with complaints of dizziness of 3 days' duration, feels like the room was spinning, off balance. The patient had a workup done in the ED including CT head which did not show any new acute abnormalities. MRI of the brain showing evidence of acute right cerebellar infarct Echocardiogram done showing EF of 60-65%, no LV thrombus There was a consideration of DAPT but they settled with aspirin 81 mg daily has a monotherapy given prior history of SDH. The patient was sent home with home PT services Has a follow up appointment with neuro clinic on 03/01/2025 at 09:30, [facility], this information was given to the patient. Outpatient Zio patch is being requested by Neurology. neurology clinic, outpatient zio patch requested by neurology. Reports that [facility] Medical History (Updated 10/08/24 @ 13:36 by Leander Stokes MD) Liver cirrhosis Pure hypercholesterolemia Overweight (BMI 25.0-29.9) Constipation History of substance abuse Insomnia Depression GERD (gastroesophageal reflux disease) COPD (chronic obstructive pulmonary disease) Neuropathy Subdural hematoma (~05/2021) Smoker Bilateral flank pain Diabetes mellitus Arthritis Surgical History History of marzena hole surgery (~06/01/21) History of colonoscopy History of lung surgery Family History Father Diabetes Mother Diabetes CVD (cardiovascular disease) Social History Housing: Apartment Alcohol intake: former Patient Tobacco Use Status: Current everyday Tobacco user Tobacco use type: Cigarette Cigarette Packs Per Day: 0.25 Cigarettes Per Day: 3 e-Cigarette/Vaping Use: Never Used Second Hand Smoke Exposure: Yes service: No Current occupational status: disabled Cognitive needs: No Hearing needs: No Vision needs: Yes (Glasses) Questionnaire Thrive Questionnaire Date Thrive assessed: 10/08/24 LEONIE-7 AMB Questionnaire LEONIE-7 Date LEONIE - 7 assessed: 10/08/24 Source: Developed by Drs. Ethan Castañeda, Zully Hartman, Dillon Corrales and colleagues, with an educational rivas from [employer]. Physical exam (Primary Care) Vital Signs: Last Vital Signs Temp 97.3 F 12/19/24 15:05 Pulse 78 12/19/24 15:05 BP 110/60 12/19/24 15:05 Pulse Ox 98 12/19/24 15:05 Oxygen Delivery Method Room Air 12/19/24 15:05 BMI result Body Mass Index 26.9 Tobacco/Smoking Status: Tobacco use Status Tobacco use date assessed 12/19/24 12/19/24 15:13 Patient Tobacco Use Status Current everyday Tobacco 12/19/24 15:13 Tobacco use type Cigarette 12/19/24 15:13 e-Cigarette/Vaping Use Never Used 12/19/24 15:13 Thrive Assessment: Date of Thrive Assessment Date Thrive assessed 10/08/24 12/19/24 15:13 Results AMB Hemoglobin A1c AMB Hemoglobin A1c 6.8 % Last Edit by TJ Gonzalez on 12/19/24 15:20 Results Reviewed Results Reviewed: Laboratory Last Values Hgb A1c (Clinic) 6.8 % (4.0-6.0) H 12/19/24 15:04 Coding Assessment & Plan Assessment & Plan Orders: Orders AMB Hemoglobin A1c 12/19/24 E11.9 - Type 2 diabetes mellitus without c omplications
[2024-12-19 15:05] VITALS: BP 110/60; PULSE 78; TEMP 36.3; O2SAT 98; BMI 26.9
== END 2024-12-19 16:15 | disposition home or self-care (01) ==
LOC: HO.HMCH 14:54
PROVIDERS: PCP Internal Medicine
DX: E11.9 Type 2 diabetes mellitus without complications (principal)

== ENCOUNTER → 2024-12-19 14:53 | Outpatient (BNVA) | payer MEDICARE, MEDICAID, SELFPAY | PROVIDERS: PCP Internal Medicine | DX: I63.541 Cerebral infarction due to unspecified occlusion or stenosis of right cerebellar artery (principal); E11.9 Type 2 diabetes mellitus without complications; M54.2 Cervicalgia | CPT/HCPCS: 83036; 99212 ==

== ENCOUNTER 2025-02-27 13:26 | Outpatient (AMB) | payer MEDICARE, MEDICAID, SELFPAY ==
[2025-02-27 13:28] VITALS: BP 130/70; PULSE 88; O2SAT 98; BMI 27.0
--- NOTE | 2025-02-27 13:28 | A.OFFPC_ITS ---
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 Accompanied by: Self / Same As Patient Allergies Gadolinium-Containing Contrast Medi (Gadolinium-Containing Agents) Allergy (Mild, Verified 02/27/25 13:40) PATIENT DEVELOPED HIVES atorvastatin Adverse Reaction (Intermediate, Verified 02/27/25 13:40) severe weakness IVP dye Allergy (Unknown, Uncoded 02/27/25 13:40) hives, rash Medication List - Last Reconciled 02/27/25 by Leander Stokes MD albuterol sulfate 90 mcg/actuation 1 puff PO QID PRN aspirin (Adult Low Dose Aspirin) 81 mg PO DAILY blood sugar diagnostic (OneTouch Ultra Test strips) test daily blood sugar diagnostic (FreeStyle Lite Strips) As directed Once per day blood-glucose meter (OneTouch Ultra2 Meter) test once daily [Cervical soft collar As directed] gabapentin 600 mg PO TID 30 days hydroxyzine HCl 25 mg PO TID PRN 30 days lancets (OneTouch UltraSoft 2 Lancet) test once daily lancets (FreeStyle Lancets) As directed once per day lancets (TRUEplus Lancets) As directed magnesium oxide 400 mg PO BID metformin 500 mg PO BID 90 days nabumetone 500 mg PO BID 30 days naloxegol (Movantik) 25 mg PO QAM PRN rosuvastatin 5 mg PO DAILY 30 days Tradjenta (linagliptin) 5 mg PO QAM 90 days NS trazodone 100 mg PO BEDTIME PRN varenicline tartrate 0.5 mg PO BID 3 days varenicline tartrate 1 mg PO BID 28 days varenicline tartrate 0.5 mg PO DAILY 3 days Tobacco use date assessed: 02/27/25 Fall risk assessment: No Falls in past year Last assessed Fall Risk: 02/27/25 Dental Screening Dental Screen Date: 02/27/25 Did you have a dental visit in the last 12 months?: Yes Did you have a dental problem in the last 6 months where you did not have access to dental care?: No Was dental information given to patient?: Patient has dentist HPI hyperlipidemia, liver cirrhosis, DM, resched HPI Details Patient comes in today for his follow up visit States that he currently feels okay but continues to experience recurrent pain, sometimes sharp, over his right chest wall area, around the right shoulder and over the right periscapular area adjacent to the thoracic spine He was admitted to [facility] for a couple of days this past weekend when he presented to the ER there with substernal chest pains Also recalls that he could hardly move and raise his right arm/shoulder Cardiac work ups done at [facility] recently were negative for acute coronary syndrome He had head CT and head and neck CTA done, all of which showed no acute changes He denies any headaches or dizziness Denies any increased SOB No nausea/vomiting, no abdominal pain No change in bowel habits noted He was not able to get his follow up labs done prior to his appointment today but he did have extensive labs done at [facility] when he was there this past weekend [facility] Medical History (Updated 02/27/25 @ 13:47 by Leander Stokes MD) Liver cirrhosis Pure hypercholesterolemia Overweight (BMI 25.0-29.9) Constipation History of substance abuse Insomnia Depression GERD (gastroesophageal reflux disease) COPD (chronic obstructive pulmonary disease) Neuropathy Subdural hematoma (~05/2021) Smoker Bilateral flank pain Diabetes mellitus Arthritis Surgical History History of marzena hole surgery (~06/01/21) History of colonoscopy History of lung surgery Family History Father Diabetes Mother Diabetes CVD (cardiovascular disease) Social History Housing: Apartment Alcohol intake: former Patient Tobacco Use Status: Current everyday Tobacco user Tobacco use type: Cigarette Cigarette Packs Per Day: 0.25 Cigarettes Per Day: 3 e-Cigarette/Vaping Use: Never Used Second Hand Smoke Exposure: Yes service: No Current occupational status: disabled Cognitive needs: No Hearing needs: No Vision needs: Yes (Glasses) Questionnaire PHQ-9 Over the last 2 weeks, how often have you been bothered by any of the following problems? 1. Little interest or pleasure in doing things: not at all 2. Feeling down, depressed, or hopeless: not at all 3. Trouble falling or staying asleep, or sleeping too much: not at all 4. Feeling tired or having little energy: nearly every day 5. Poor appetite or overeating: not at all 6. Feeling bad about yourself - or that you are a failure or have let yourself or your family down: not at all 7. Trouble concentrating on things, such as reading the newspaper or watching television: not at all 8. Moving or speaking so slowly that other people could have noticed. Or the opposite - being so fidgety or restless that you have been moving around a lot more than usual: not at all 9. Thoughts that you would be better off or of hurting yourself in some way: not at all Total score: 3 Depression Screening Interpretation: Positive Depression Screening Follow-up: Existing condition and In treatment Depression Screening Done: Yes [id number] - PHQ-9 Billing: Yes Source: Developed by Drs. Ethan Castañeda, Zully Hartman, Dillon Corrales and colleagues, with an educational rivas from [employer]. Thrive Questionnaire Date Thrive assessed: 02/27/25 I am a: Patient What is your living situation today?: I have a steady place to live Within the past 12 months, did the food you bought not last and you didn't have the money to get more?: Never true Within the past 12 months, did you worry whether your food would run out before you got money to buy more?: Never true Do you have trouble paying for medicines?: Yes Do you have trouble getting transportation to medical appointments?: Yes Do you have trouble paying your heating and electricity bill?: No Do you have trouble taking care of your child, family member or friend?: No Do you have trouble with day-to-day activities such as bathing, preparing meals, shopping, managing finances, etc.?: Yes Are you currently unemployed and looking for a job?: Yes Are you interested in more education?: Yes Please select the resources that you would like help with: None Currently or been in a relationship where the following occur: No concerns reported THRIVE Score: 1 AUDIT C Alcohol Use Questionnaire (AUDIT-C) 1. How often do you have a drink containing alcohol?: Never 3. How often do you have six or more drinks on one occasion?: Never Total Score: 0 Score Reviewed/Action Taken: Yes LEONIE-7 AMB Questionnaire LEONIE-7 Date LEONIE - 7 assessed: 02/27/25 Feeling nervous, anxious, or on edge: 0 = Not at all Not being able to stop or control worryin = Not at all Worrying too much about different things: 0 = Not at all Trouble relaxin = Nearly every day Being so restless that it is hard to sit still: 3 = Nearly every day Becoming easily annoyed or irritable: 0 = Not at all Feeling afraid as if something awful might happen: 0 = Not at all Total LEONIE-7 score (0-4 normal; 5-9 mild; 10-14 moderate; 15-21 severe): 6 Source: Developed by Drs. Ethan Castañeda, Zully Hartman, Dillon Corrales and colleagues, with an educational rivas from [employer]. Review of Systems Const Denies chills, Denies fatigue, Denies fever(s) and Denies headache(s) ENT Denies dysphagia, Denies dizziness, Denies otalgia, Denies headache(s), Denies neck pain, Denies odynophagia and Denies sore throat Card Reports chest pain (recurrent, over the right chest wall area), Denies palpitations and Denies dyspnea Resp Denies chest congestion, Reports cough (on and off; coughs up thick whitish phlegm at times) and Denies dyspnea GI Denies abdominal pain (but feels (+) recurrent L-sided abdominal mass ), Denies constipation, Denies dysphagia, Denies heartburn, Denies diarrhea, Denies nausea, Denies odynophagia and Denies vomiting Denies difficulty urinating, Denies dysuria, Denies nocturia and Denies urinary frequency Musc Reports back pain (including medial to the right scapula lately), Reports arthralgias (over multiple joints, including both hips and shoulders), Denies neck pain, Reports numbness and Reports tingling (occasional) Skin/Breast Denies rash Neuro Denies dizziness, Denies headache(s), Reports numbness, Reports tingling (occasional) and Reports paresthesias (over both feet, increasing) Psych Reports anxiety Endo Denies fatigue and Denies palpitations Physical exam (Primary Care) Vital Signs: Last Vital Signs Pulse 88 02/27/25 13:28 BP 130/70 02/27/25 13:28 Pulse Ox 98 02/27/25 13:28 Oxygen Delivery Method Room Air 02/27/25 13:28 BMI result Body Mass Index 27.0 Tobacco/Smoking Status: Tobacco use Status Tobacco use date assessed 02/27/25 02/27/25 13:32 Patient Tobacco Use Status Current everyday Tobacco 02/27/25 13:32 Tobacco use type Cigarette 02/27/25 13:32 e-Cigarette/Vaping Use Never Used 02/27/25 13:32 PHQ-9: PHQ-9 Score PHQ-9: Total score 3 02/27/25 14:05 Depression Screening Interpretation: Positive Depression Screening Follow-up: Existing condition and In treatment Thrive Assessment: Date of Thrive Assessment Date Thrive assessed 02/27/25 02/27/25 13:32 Currently or been in a relationship where the following occur: No concerns reported Const General: no acute distress and alert HENMT Ears: TM's normal bilaterally and EAC's normal Throat: Yes posterior oropharynx normal and Yes tonsils normal (no TP congestion) Neck Neck: Yes supple and No lymphadenopathy Thyroid: Thyroid normal Chest Other: (+) reproducible tenderness on palpation over the right upper chest wall area Resp Auscultation: no crackles, no rales, no wheezes and diminished lung sounds (slightly) bilateral Cardio Rate: regular rate Rhythm: regular rhythm Heart sounds: no murmurs GI Palpation (GI): Soft to palpation, nontender, no hernias and no masses Auscultation: normal bowel sounds General: Yes no CVA tenderness Back/Spine/Pelvis Other: (+) tenderness on palpation over the right periscapular area medially, just adj acent to the thoracic spine Back: no CVA tenderness Thoracic/Lumbar Spine: lumbar spinal tenderness Skin Rashes: no rashes Extrem General: Yes no clubbing, cyanosis or edema Right upper extremity: shoulder/upper arm Details: tenderness Location: of the A-C joint Left upper extremity: shoulder/upper arm Details: tenderness Location: of the A- C joint Right lower extremity: hip/thigh Details: tenderness Location: of the hip Left lower extremity: hip/thigh Details: tenderness Location: of the hip Coding Level of Care Code Est Pt Level 4 (88655) Diagnoses Pure hypercholesterolemia E78.00 Type 2 diabetes mellitus without complication, without long-term current use of insulin E11.9 Diabetes mellitus complication status: without complication Diabetes mellitus vermin exterminator insulin use: without vermin exterminator use Diabetes mellitus type: type 2 Chronic obstructive pulmonary disease, unspecified COPD type J44.9 COPD type: unspecified COPD Opacity of lung on imaging study R91.8 Alcoholic cirrhosis of liver without ascites K70.30 Ascites presence: without ascites Hepatic cirrhosis type: alcoholic cirrhosis Neuropathy G62.9 Multiple joint pain M25.50 Muscle cramps R25.2 Upper back pain on right side M54.9 Subdural hematoma S06.5X9A History of hepatitis C Z86.19 Constipation, unspecified constipation type K59.00 Constipation type: unspecified constipation type Insomnia, unspecified type G47.00 Insomnia type: unspecified Anxiety F41.9 Smoker F17.200 Overweight (BMI 25.0-29.9) E66.3 Additional Codes PHQ-9 - 63512 - PHQ-9 Billing: Yes ([id number]) Assessment & Plan Assessment & Plan (1) Pure hypercholesterolemia: Code(s): E78.00 - Pure hypercholesterolemia, unspecified Category: Medical Plan: Patient was not able to get his follow-up labs done prior to his appointment today - states that he will try to go and get these done RAYMOND Reinforced low cholesterol diet Continue Rosuvastatin 5 mg QD He could not tolerate Atorvastatin 10 mg QD in the past due to increased generalized weakness while he was on the medication but has had no problems so far with Rosuvastatin Will have him recheck his labs and fasting lipids in 4 months for follow up (2) Diabetes mellitus: Code(s): E11.9 - Type 2 diabetes mellitus without complications Category: Medical Qualifiers: Diabetes mellitus complication status: without complication Diabetes mellitus long-term insulin use: without long-term use Diabetes mellitus type: type 2 Qualified Code(s): E11.9 - Type 2 diabetes mellitus without complications Plan: His in-office HgbA1c was at 6.8% when last checked on 12/19/2024 (HgbA1c was at 6.7% back in October 2024) - goal is at least <7.0% His C-peptide level and LEONIE Ab also both came back normal, confirming that he is NOT insulin-requiring Reinforced diabetic diet Continue Metformin 500 mg BID and Tradjenta 5 mg QD (3) COPD (chronic obstructive pulmonary disease): Code(s): J44.9 - Chronic obstructive pulmonary disease, unspecified Category: Medical Qualifiers: COPD type: unspecified COPD Qualified Code(s): J44.9 - Chronic obstructive pulmonary disease, unspecified Plan: Continue Albuterol HFA 2 inhalations every 6 hours as needed Chest x-rays done back in August 2023 revealed that the previous mild right basilar opacity appears increased when compared with chest radiographs dating back to 08/29/2015. CT scan without intravenous contrast was recommended for further evaluation Chest CT done on 01/06/2024 revealed (+) multiple small pulmonary nodules are unchanged since 2019 CT scan and therefore benign. There are moderate emphysematous changes and also a cirrhotic appearing liver and cholelithiasis without cholecystitis (4) Opacity of lung on imaging study: Code(s): R91.8 - Other nonspecific abnormal finding of lung field Category: Medical Plan: Chest CT done in December 2023 revealed (+) multiple small pulmonary nodules are unchanged since 2019 CT scan and therefore benign. There are also moderate emphysematous changes noted on his chest CT Patient has been reassured of these findings (5) Liver cirrhosis: Code(s): K74.60 - Unspecified cirrhosis of liver Category: Medical Qualifiers: Ascites presence: without ascites Hepatic cirrhosis type: alcoholic cirrhosis Qualified Code(s): K70.30 - Alcoholic cirrhosis of liver without ascites Plan: (+) Hx of liver cirrhosis secondary to alcohol abuse and hepatitis C His hepatitis C was treated back in 2015 and patient states that he has been completely abstinent for about 4 years now (since 2019) Repeat abdominal US done back in July 2024 revealed findings indicative of a high elastography value suggestive of advanced chronic liver disease Follow up with GI (Dr. Ricardo) as scheduled (6) Neuropathy: Code(s): G62.9 - Polyneuropathy, unspecified Category: Medical Plan: NCV & EMG done back on 12/29/2017 revealed (+) mild sensory and motor peripheral neuropathy; he was sent for repeat studies a couple of years ago but he canceled his appointment as he did not want to get this repeated Continue Gabapentin 600 mg TID His B12, ESR, CRP, TSH were all normal when checked at the time Will consider repeating NCV & EMG if his symptoms persist or get worse (7) Multiple joint pain: Code(s): M25.50 - Pain in unspecified joint Category: Medical Plan: X-rays of his left shoulder done in December 2023 revealed (+) mild osteoarthritic changes in the acromioclavicular and glenohumeral joints as well as faint linear calcification adjacent to the humeral head suggestive of tendinitis Will consider referring him to orthopedics for further evaluation and management if his symptoms persist or progress Continue Nabumetone 500 mg BID PRN He was referred to rheumatology for further evaluation and management of his joint pains and he was scheduled to be seen for initial visit back in October 2022 but it appears that he never went for his appt Will revisit rheumatology referral later on but he wants to concentrate on quitting smoking first (8) Muscle cramps: Code(s): R25.2 - Cramp and spasm Category: Medical Plan: Continue Mag-Ox 400 mg BID PRN (9) Upper back pain on right side: Code(s): M54.9 - Dorsalgia, unspecified Category: Medical Plan: This is involving also the area around the right shoulder and the right upper chest wall area Will refer patient to physical therapy for further evaluation and management (10) Subdural hematoma: Onset Date: ~05/2021 Comment: right-sided; S/P Marzena hole drainage by Dr. Elmore on 06/01/2021 Code(s): S06.5X9A - Traumatic subdural hemorrhage with loss of consciousness of unspecified duration, initial encounter Category: Medical Plan: This is resolved and patient currently has very little residual neurologic deficits (11) History of hepatitis C: Comment: S/P treatment Code(s): Z86.19 - Personal history of other infectious and parasitic diseases Category: Medical Plan: S/P Tx Hepatitis C viral load rechecked in August 2022 came out negative Follow up with GI as scheduled (12) Constipation: Code(s): K59.00 - Constipation, unspecified Category: Medical Qualifiers: Constipation type: unspecified constipation type Qualified Code(s): K59.00 - Constipation, unspecified Plan: He is encouraged again on increased oral fluids and dietary fiber Continue Movantik 25 mg QD PRN (13) Insomnia: Code(s): G47.00 - Insomnia, unspecified Category: Medical Qualifiers: Insomnia type: unspecified Qualified Code(s): G47.00 - Insomnia, unspecified Plan: Sleep hygiene reinforced Continue Trazodone 100 mg Q HS PRN (14) Anxiety: Code(s): F41.9 - Anxiety disorder, unspecified Category: Medical Plan: Continue Hydroxyzine 25 mg TID PRN (15) Smoker: Code(s): F17.200 - Nicotine dependence, unspecified, uncomplicated Category: Social Hx Plan: Patient is counseled again on smoking cessation He has tried and failed on Nicotine patches recently Continue Varenicline QD as instructed (16) Overweight (BMI 25.0-29.9): Code(s): E66.3 - Overweight Category: Medical Plan: Reinforced diet/exercise as tolerated/lose weight Plan Follow up in 4 months Orders: Orders PT Evaluation and Treatment 02/27/25 M25.511 - Pain in right shoulder, M54.9 - Dorsalgia, unspecified Complete Blood Count Auto Diff 4 Months D64.9 - Anemia, unspecified Hemoglobin A1c 4 Months E11.9 - Type 2 diabetes mellitus without complications Comprehensive [place]. Panel Fast 4 Months E78.00 - Pure hypercholesterolemia, unspecified Lipid Panel 4 Months E78.00 - Pure hypercholesterolemia, unspecified
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
== END 2025-02-27 13:53 | disposition home or self-care (01) ==
LOC: HO.HMCH 13:26
PROVIDERS: PCP Internal Medicine; Visit Provider Internal Medicine
DX: E11.42 Type 2 diabetes mellitus with diabetic polyneuropathy (principal); J44.9 Chronic obstructive pulmonary disease, unspecified; K70.30 Alcoholic cirrhosis of liver without ascites; S06.5X9A Traumatic subdural hemorrhage with loss of consciousness of unspecified duration, initial encounter; E78.00 Pure hypercholesterolemia, unspecified; R91.8 Other nonspecific abnormal finding of lung field; G62.9 Polyneuropathy, unspecified; M25.50 Pain in unspecified joint; R25.2 Cramp and spasm; M54.9 Dorsalgia, unspecified; Z86.19 Personal history of other infectious and parasitic diseases; K59.00 Constipation, unspecified

== ENCOUNTER → 2025-02-27 13:26 | Outpatient (BNVA) | payer OTHER, SELFPAY | PROVIDERS: PCP Internal Medicine; Visit Provider Internal Medicine | DX: E11.40 Type 2 diabetes mellitus with diabetic neuropathy, unspecified (principal); E78.5 Hyperlipidemia, unspecified; E78.00 Pure hypercholesterolemia, unspecified; R07.9 Chest pain, unspecified; J44.9 Chronic obstructive pulmonary disease, unspecified; R91.8 Other nonspecific abnormal finding of lung field; K70.30 Alcoholic cirrhosis of liver without ascites; M25.50 Pain in unspecified joint; R25.2 Cramp and spasm; M54.9 Dorsalgia, unspecified; K59.00 Constipation, unspecified; G47.00 Insomnia, unspecified; F41.9 Anxiety disorder, unspecified; F17.210 Nicotine dependence, cigarettes, uncomplicated; E66.3 Overweight; Z68.27 Body mass index [BMI] 27.0-27.9, adult; Z86.19 Personal history of other infectious and parasitic diseases | CPT/HCPCS: 96127; 99212 ==

== ENCOUNTER 2025-03-14 13:05 | Outpatient (AMB) | payer MEDICARE, SELFPAY ==
--- OUTSIDE RECORDS SUMMARY | 2025-03-14 13:09 | XMS_ITS | Patient Health Record ---
Author Organization [facility] Address [address] [place] [address] Care Team Providers Care Ceramic Chemist Name Role Phone Leander Stokes MD Primary Care Provider Ethan Keys [phone] Allergies Allergen (clinical drug ingredient) Drug/Non Drug Allergy documented on EMR Reaction Allergy Type Onset Date Status IVP Dye contrast (uncoded) Unknown Allergy Active Results Component Value Reference Range Notes US abdomen comp w elastograp hy (Not yet reviewed by provider) Interpretation: Performing Lab: Notes/Report: [address] [address] Ultrasound Report Signed Patient: Hernandez Rashid MR#: [id number] : 1955 Acct:[id number] Age/Sex: 68 / M ADM Date: 07/25/24 Loc: HO.US Attending Dr: Ethan Ricardo MD Ordering Physician: Ethan Ricardo MD Date of Service: 07/25/24 Procedure(s): US abdomen comp w elastography Accession Number(s): [id number] cc: Leander Stokes MD; Etahn Ricardo MD EXAMINATION: US ABDOMEN COMPLETE WITH [...] by: Ethan Poole MD 09/04/2024 09:23 AM [facility] Dictated By: Ethan Poole MD Signed By: <Electronically signed by Ethan Poole MD in OV> 09/04/24 0923 DD/ 5 TD/TT: 07/25/2435 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 No Information Medications Medication [...] Status Risk Notes Problem Colon cancer screening (048135351) Colon cancer screening (Z12.11) Active confirmed Problem Other cirrhosis of liver (K74.69) Active confirmed Problem 672041857 Chronic hepatitis C without hepatic coma (B18.2) Active confirmed Problem 34581929213093 History of hepatitis C (Z86.19) Active confirmed Problem Hepatic cirrhosis, unspecified hepatic cirrhosis type (K74.60) Active confirmed Vital Signs Temperature 97.3 degrees Fahrenheit 01/09/2025 Blood pressure diastolic 01 mm Hg 01/09/2025 Height 65.24 in 01/09/2025 Blood pressure systolic 001 mm Hg 01/09/2025 Weight 150 lbs 01/09/2025 BMI 24.78 kg/m2 01/09/2025 Encounters Encounter Location Date Provider Diagnosis [facility] [address] [place] [address] 07/11/2024 Ethan Ricardo Hepatic cirrhosis, unspecified hepatic cirrhosis type K74.60 ; History of hepatitis C Z86.19 and Colon cancer screening Z12.11 [facility] [address] [place] [address] 01/09/2025 Ethan Ricardo Hepatic cirrhosis, unspecified hepatic [...] Test Test Name Order Date LIVER PROFILE 06/02/2016 LIVER PROFILE 01/09/2025 LIVER PROFILE 11/05/2015 LIVER PROFILE 05/23/2015 LIVER PROFILE 12/21/2018 LIVER PROFILE 07/11/2024 CBC w DIFF 12/21/2018 CBC w DIFF 07/11/2024 CBC w DIFF 01/09/2025 CBC w DIFF 11/05/2015 CBC w DIFF 05/23/2015 CBC w DIFF 04/10/2013 PROTHROMBIN TIME (PT, INR) 04/10/2013 PROTHROMBIN TIME (PT, INR) 12/21/2018 ALPHA-FETOPROTEIN,TUMOR MARKER 3 ALPHA-FETOPROTEIN,TUMOR MARKER 4 ALPHA-FETOPROTEIN,TUMOR MARKER 9 ALPHA-FETOPROTEIN,TUMOR MARKER 5 ALPHA-FETOPROTEIN,TUMOR MARKER 6 HEPATITIS C VIRAL LOAD 05/23/2015 HEPATITIS C VIRAL LOAD 01/09/2025 HEPATITIS C VIRAL LOAD 11/05/2015 HEPATITIS C VIRAL LOAD 07/11/2024 HEPATITIS C VIRAL LOAD 06/02/2016 HEPATITIS C VIRAL LOAD 12/21/2018 HCV LIVER FIBROSIS, FIBRO TEST 4 Prothrombin Time INR 07/11/2024 Prothrombin Time INR 01/09/2025 US abdomen comp w elastography 4 US abdomen comp w elastography 4 Next Appt Details Provider Name:Ethan Ricardo , 07/16/2025 01:00:00 PM, [address] [place] [address], [facility] [address], [place], [address], Insurance Providers Payer Name Payer Address Payer Phone Subscriber Number Group Number Insured Name Patient Relationship to Insured Coverage Start Date Coverage End Date MEDICARE OF [place] [address] [place] [address] [id number] HERNANDEZ RASHID Self - patient is the insured [facility]ICAID OF [facility] [address] [place] [address] [phone] [id number] HERNANDEZ RASHID Self - patient is the insured Medical (General) History Medical History History ICD Code Chronic Hep C- Genotype 1a, liver bx 08/2004 with Grade 2/4 and Stage III/IV-treated with 26 wks of Peg-IF and Ribavirin in [id number] with nondetectable viral load, but had to [...] and in 05/2017 Gallstones-asymptomatic Asthma NIDDM Denies MD,CVA,renal disease Neg.screening colonoscopy in 04/2010 except for [...]
--- NOTE | 2025-03-14 13:22 | HO.SPINEOV ---
Intake Visit Reasons: spinal renay compression Intake Note: Mr. Calhoun is here today c/o neck pain radiating into arm. Eyeglass Fitter Required: No Allergies Gadolinium-Containing Contrast Medi (Gadolinium-Containing Agents) Allergy (Mild, Verified 02/27/25 13:40) PATIENT DEVELOPED HIVES atorvastatin Adverse Reaction (Intermediate, Verified 02/27/25 13:40) severe weakness IVP dye Allergy (Unknown, Uncoded 02/27/25 13:40) hives, rash Assessment & Plan Assessment & Plan (1) Cervical spinal cord compression: Code(s): G95.20 - Unspecified cord compression Category: Medical Plan Dear colleague Thank you for referring corry Rashid to the office today with a chief complaint of resolved right arm.. HPI: This 69-year-old male was changing a tire when he developed severe pain radiating on the right side of his neck to his shoulder blade into his arm and hand. He does not remember which fingers. This happened approximately 3 weeks ago. He went to the emergency room at [facility] where he was admitted for 5 days. He was evaluated for pulmonary and cardiological causes, which were excluded. An MRI of the cervical spine was done which showed spinal cord compression and severe right C6 and C7 foraminal stenosis. Currently, the radicular symptoms have disappeared. He denies dexterity loss, he denies balance problems. He denies weakness. He does have numbness of his 2nd 3rd and 4th finger on the right hand. He does not remember when this started. 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 Normal gait. No dysmetria. Low reflexes. No pathological reflexes. Motor exam is intact. Sensory exam shows mild diminished sensation of the fingertips of the 2nd to 4th finger on the right hand. Radiological Studies: MRI done at [facility] on 02/25/2025 shows multilevel degenerative disc disease with osteophyte formation causing spinal cord compression at C3-C4 with myelomalacia. In addition, there is severe right C6 and C7 foraminal stenosis. Impression/Plan: This patient developed an acute right cervical radiculopathy proximally 3 weeks ago, most likely due to the severe C6 and C7 foraminal stenosis on the right side. Fortunately, the radicular symptoms disappeared. He is asymptomatic from the spinal cord compression. I would like to reassess him in 6 months. I warned him to return to my office if the pain symptoms return or if he develops neurological deficits in the form of more numbness or weakness. Thank you for allowing me to participate in your patients care. total time spent was 50 minutes in counseling ,coordination of plan, personal review of imaging, surgical decision making and subsequent plan David Pimentel MD, PhD Spine Fellowship Trained Neurosurgeon Director, [facility] Coding Level of Care Code New Pt Level 4 (42081) Diagnoses Cervical spinal cord compression G95.20
== END 2025-03-14 13:56 | disposition home or self-care (01) ==
LOC: HO.HNS 13:06
PROVIDERS: PCP Internal Medicine; Referring Provider Internal Medicine; Visit Provider Neurological Surgery
DX: G95.20 Unspecified cord compression (principal)
CPT/HCPCS: 99204

== ENCOUNTER → 2025-03-14 13:05 | Outpatient (BNVA) | payer MEDICARE, SELFPAY | PROVIDERS: PCP Internal Medicine; Referring Provider Internal Medicine; Visit Provider Neurological Surgery | DX: M54.2 Cervicalgia (principal); G95.20 Unspecified cord compression; R20.2 Paresthesia of skin | CPT/HCPCS: 99202 ==

== ENCOUNTER 2025-06-26 08:34 | Outpatient (REF) | payer OTHER, SELFPAY ==
[2025-06-26 09:05] LABS: Hemoglobin 14.3 g/dl (14.0-18.0); NRBC Abs Auto 0.000 X10*3/uL (0.0-0.012); NRBC Pct Auto 0.0 /100WBC (0.0-0.2); PLT CLUMP 1; SCAN SMEAR FLAG 1
[2025-06-26 09:06] LABS: MANUAL DIFF FLAG SCAN
[2025-06-26 09:09] LABS: Appearance Urine Clear; Glucose Urine UA Negative (Negative); PH 5.5 (5.0-9.0); Specific Gravity - Urine 1.015 (1.005-1.025); UMIC TRIGGER UACC YES
[2025-06-26 09:22] LABS: Hematocrit 42.0 % (42.0-52.0); Imm Gran Abs Auto 0.05 X10*3/uL (0.00-0.03); Imm Gran Pct Auto 0.7 % (0.0-0.4); Lymphocytes Absolute Auto 1.9 X10*3/uL (1.2-4.9); Mean Corpuscular HGB Conc 34.0 g/dl (31.0-36.0); Mean Corpuscular Hemoglobin 32.3 pg (27.0-33.0); Mean Corpuscular Volume 94.8 fL (80.0-98.0); Platelet Count 108 X10*3/uL (160-400); Red Blood Count 4.43 X10*6/uL (4.60-5.80); White Blood Count 7.1 X10*3/uL (4.8-10.8)
[2025-06-26 09:38] LABS: Alanine Aminotransferase 42 U/L (0-40); Albumin Level 4.7 g/dL (3.5-5.0); Alkaline Phosphatase 67 U/L (39-117); Anion Gap 10 (12-20); Aspartate Amino Transferase 36 U/L (5-37); Blood Urea Nitrogen 13 mg/dL (9-16); Calcium 9.4 mg/dL (8.4-10.2); Carbon Dioxide 24 mmol/L (22-29); Chloride 105 mmol/L (96-108); Cholesterol 145 mg/dL (<200); Estimated Glomerular Filt Rate > 60; HDL Cholesterol 39 mg/dL (>40); Magnesium 1.8 mg/dL (1.6-2.6); Potassium 4.0 mmol/L (3.3-5.1); Sodium 135 mmol/L (135-145); Total Protein 7.6 g/dL (6.5-8.0); Triglycerides 183 mg/dL (<150)
[2025-06-26 10:10] LABS: Folate 10.6 ng/mL (> or = 4.0); Vitamin B12 721 pg/mL (200-900)
--- OUTSIDE RECORDS SUMMARY | 2025-06-26 16:19 | XMS_ITS | Patient Health Record ---
Author Organization [facility] Address [address] [place] [phone] Care Team Providers Care Detailer Name Role Phone Leander Stokes MD Primary Care Provider Ethan Keys [phone] Allergies Allergen (clinical drug ingredient) Drug/Non Drug Allergy documented on EMR Reaction Allergy Type Onset Date Status IVP Dye contrast (uncoded) Unknown Allergy Active Results Component Value Reference Range Notes US abdomen comp w elastograp hy (Not yet reviewed by provider) Interpretation: Performing Lab: Notes/Report: [address] [address] Ultrasound Report Signed Patient: Hernandez Rashid MR#: [id number] : 1955 Acct:[id number] Age/Sex: 68 / M ADM Date: 07/25/24 Loc: HO.US Attending Dr: Ethan Ricardo MD Ordering Physician: Ethan Ricardo MD Date of Service: 07/25/24 Procedure(s): US abdomen comp w elastography Accession Number(s): [id number] cc: Leander Stokes MD; Ethan Ricardo MD [...] by: Ethan Poole MD 09/04/2024 09:23 AM [facility] Dictated By: Ethan Poole MD Signed By: <Electronically signed by Ethan Poole MD in OV> 09/04/2423 DD/ 5 TD/TT: 07/25/24934 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 No Information Medications Medication SIG (Take, Route, Frequency, Duration) Notes Start Date End Date Status Rosuvastatin Calcium 5 MG Tablet TAKE ONE TABLET DAILY Oral; Duration: 30 Unknown Tradjenta 5 MG Tablet Oral; Duration: 90 Unknown Magnesium Oxide -Mg Supplement 400 (240 Mg) MG Tablet TAKE ONE TABLET TWICE DAILY Oral; Duration: 30 Unknown Albuterol Sulfate HFA 108 (90 Base) MCG/ACT Aerosol Solution Inhalation; Duration: 50 Unk nown Rosuvastatin Calcium 5 MG Tablet Oral; Duration: 30 Days Acti ve Citalopram Hydrobromide 40 MG Tablet 0.5 tablet Orally Once a day Unknown metFORMIN HCl 500 MG Tablet TAKE ONE TAB LET BY MOUTH TWICE DAILY Oral; Duration: 90 Days Active glipiZIDE 5 MG Tablet 1 tablet Orally On ce a day Unknown Tradjenta 5 MG Tablet Oral; Duration: 90 Days Active metFORMIN HCl 500 MG Tablet 1 tablet wit h meals Orally Twice a day Unknown Magnesium Oxide -Mg Supplement 400 (240 Mg) MG Tablet TAKE ONE TABLET BY MOUTH TWICE DAILY Oral; Duration: 30 Days Active traZODone HCl 100 MG Tablet TAKE ONE TAB LET AT BEDTIME NEEDED FOR SLEEP Oral; Duration: 90 Days Active Varenicline Tartrate 1 MG Tablet TAKE ONE TABLET TWICE DAILY. START ON DAY SEVEN of therapy Oral; Duration: 28 Days Active traZODone HCl 50 MG Tablet 1 tablet at b edtime Orally Once a day Unknown Immunizations Vaccine Route Administration Date Status Comme nts Influenza Unknown 12/21/2018 Refused Influenza Unknown 07/11/2024 Refused Social History Tobacco Use: Social History Observation Description Date Details (start date - stop date) Current Smoker NA - NA Social History Drugs/Alcohol: Social Info Question Answer Notes Alcohol Screen Did you have a drink containing alcohol in the past year? Yes How often did you have a drink containing alcohol in the past year? 2 to 4 times a month (2 points) How many drinks did you have on a typical day when you were drinking in the past year? 1 or 2 drinks (0 point) How often did you have 6 or more drinks on one occasion in the past year? Never (0 point) Points 2 Interpretation Negative Tobacco Use: Social Info Question Answer Notes Tobacco Use/Smoking Patient is a current smoker How often do you smoke cigarettes? every day How many cigarettes a day do you smoke? 5 or less How soon after you wake up do you smoke your first cigarette? 31-60 minutes Are you interested in quitting? Ready to quit Additional Details Category Social Info Options Details Miscellaneous: Marital status: Occupation: unemployed Section Notes: Smoker; no drugs/alcohol x 1 [...] Status Risk Notes Problem Colon cancer screening (505377376) Colon cancer screening (Z12.11) Active confirmed Problem Cirrhosis of liver (62739051) Other cirrhosis of liver (K74.69) Active confirmed Problem Chronic hepatitis C (632371684) Chronic hepatitis C without hepatic coma (B18.2) Active confirmed Problem History of hepatitis C (8141343250767 1) History of hepatitis C (Z86.19) Active confirmed Problem Cirrhosis - non-alcoholic (152889636) Hepatic cirrhosis, unspecified hepatic cirrhosis type (K74.60) Active confirmed Vital Signs Temperature 97.3 degrees Fahrenheit 01/09/2025 Blood pressure diastolic 01 mm Hg 01/09/2025 Height 65.24 in 01/09/2025 Blood pressure systolic 001 mm Hg 01/09/2025 Weight 150 lbs 01/09/2025 BMI 24.78 kg/m2 01/09/2025 Encounters Encounter Location Date Provider Diagnosis [facility] [address] [place] [phone] 07/11/2024 Ethan Haleigh Hepatic cirrhosis, unspecified hepatic cirrhosis type K74.60 ; History of hepatitis C Z86.19 and Colon cancer screening Z12.11 [facility] [address] [place] [phone] 01/09/2025 Ethan Ricardo Hepatic cirrhosis, unspecified hepatic cirrhosis type K74.60 ; History of hepatitis C Z86.19 and Colon cancer screening Z12.11 [facility] [address] [place] [phone] 01/09/2025 Ethan Ricardo [facility] [address] [place] [phone] 06/20/2025 Ethan Ricardo Assessments Encounter Date Diagnosis (ICD Code) Assessment [...] keep you advised of his progress. 01/09/2025 History of hepatitis C (ICD-10 [...] keep you advised of this progress. 01/09/2025 Colon cancer screening (ICD-10 - [...] Order Date LIVER PROFILE 11/05/2015 LIVER PROFILE 06/02/2016 LIVER PROFILE 12/21/2018 LIVER PROFILE 07/11/2024 LIVER PROFILE 01/09/2025 LIVER PROFILE 05/23/2015 CBC w DIFF 01/09/2025 CBC w DIFF 05/23/2015 CBC w DIFF 12/21/2018 CBC w DIFF 11/05/2015 CBC w DIFF 07/11/2024 CBC w DIFF 04/10/2013 PROTHROMBIN TIME (PT, INR) 04/10/2013 PROTHROMBIN TIME (PT, INR) 12/21/2018 ALPHA-FETOPROTEIN,TUMOR MARKER 9 ALPHA-FETOPROTEIN,TUMOR MARKER 3 ALPHA-FETOPROTEIN,TUMOR MARKER 6 ALPHA-FETOPROTEIN,TUMOR MARKER 5 ALPHA-FETOPROTEIN,TUMOR MARKER 4 HEPATITIS C VIRAL LOAD 05/23/2015 HEPATITIS C VIRAL LOAD 01/09/2025 HEPATITIS C VIRAL LOAD 06/02/2016 HEPATITIS C VIRAL LOAD 12/21/2018 HEPATITIS C VIRAL LOAD 11/05/2015 HEPATITIS C VIRAL LOAD 07/11/2024 HCV LIVER FIBROSIS, FIBRO TEST 4 Prothrombin Time INR 01/09/2025 Prothrombin Time INR 07/11/2024 US abdomen comp w elastography 4 US abdomen comp w elastography 4 Next Appt Details Provider Name:Ethan Ricardo , 07/16/2025 01:00:00 PM, [address] [place] [address], [address], [place], [address], Insurance Providers Payer Name Payer Address Payer Phone Subscriber Number Group Number Insured Name Patient Relationship to Insured Coverage Start Date Coverage End Date MEDICARE OF [place] [address] [place] [address] [phone] [id number] HERNANDEZ RASHID Self - patient is the insured MEDICAID OF [employer] [address] [place] [phone] [id number] HERNANDEZ RASHID Self - patient is the insured Medical (General) History Medical History History ICD Code Chronic Hep C- Genotype 1a, liver bx 08/2004 with Grade 2/4 and Stage III/IV-treated with 26 wks of Peg-IF and Ribavirin in [id number] with nondetectable viral load, but had to [...] and in 05/2017 Gallstones-asymptomatic Asthma NIDDM Denies RI,CVA,renal disease Neg.screening colonoscopy in 04/2010 except for [...]
[2025-06-28 17:43] LABS: HCV Log PCR <1.18 NOT DETECTED Log IU/mL (NOT DETECTED); HepC Viral Load <15 NOT DETECTED IU/mL (NOT DETECTED)
== END 2025-06-26 08:35 | disposition home or self-care (01) ==
LOC: HO.LAB 08:34
PROVIDERS: PCP Internal Medicine; Visit Provider Internal Medicine
DX: E11.9 Type 2 diabetes mellitus without complications (principal); D64.9 Anemia, unspecified; E78.00 Pure hypercholesterolemia, unspecified; E83.42 Hypomagnesemia; E53.8 Deficiency of other specified B group vitamins; Z13.21 Encounter for screening for nutritional disorder; Z86.19 Personal history of other infectious and parasitic diseases
CPT/HCPCS: 36415; 80053; 80061; 81001; 81003; 82306; 82607; 82746; 83036; 83735; 84443; 85025; 87522

== ENCOUNTER 2025-07-01 13:04 | Outpatient (AMB) | payer OTHER, SELFPAY ==
--- NOTE | 2025-07-01 13:06 | MHC.PC.OV ---
Vital Signs 07/01/25 13:07 Height 5 ft 2 in Weight 148 lb 4 oz BMI 27.1 BP 132/70 Blood Pressure Location Lt brachial Position Sitting Pulse 81 Pulse Source Pulse Oximeter Pulse Oximetry (%) 97 Oxygen Delivery Method Room Air Intake Visit Reasons: bp Barrel Turner Required: No Accompanied by: Self / Same As Patient Allergies Gadolinium-Containing Contrast Medi (Gadolinium-Containing Agents) Allergy (Mild, Verified 07/01/25 13:39) PATIENT DEVELOPED HIVES atorvastatin Adverse Reaction (Intermediate, Verified 07/01/25 13:39) severe weakness IVP dye Allergy (Unknown, Uncoded 07/01/25 13:39) hives, rash Medication List - Last Reconciled 07/01/25 by Leander Stokes MD albuterol sulfate 90 mcg/actuation 1 puff PO QID PRN aspirin (Adult Low Dose Aspirin) 81 mg PO DAILY blood sugar diagnostic (OneTouch Ultra Test strips) test daily blood sugar diagnostic (FreeStyle Lite Strips) As directed Once per day blood-glucose meter (OneTouch Ultra2 Meter) test once daily [Cervical soft collar As directed] gabapentin 600 mg PO TID 30 days hydroxyzine HCl 25 mg PO TID PRN 30 days lancets (FreeStyle Lancets) As directed once per day lancets (OneTouch UltraSoft 2 Lancet) test once daily lancets (TRUEplus Lancets) As directed magnesium oxide 400 mg PO BID metformin 500 mg PO BID 90 days nabumetone 500 mg PO BID 30 days naloxegol (Movantik) 25 mg PO QAM PRN rosuvastatin 5 mg PO DAILY 30 days Tradjenta (linagliptin) 5 mg PO QAM 90 days NS trazodone 100 mg PO BEDTIME PRN varenicline tartrate 0.5 mg PO BID 3 days varenicline tartrate 1 mg PO BID 28 days varenicline tartrate 0.5 mg PO DAILY 3 days Tobacco use date assessed: 07/01/25 Fall risk assessment: No Falls in past year Last assessed Fall Risk: 07/01/25 Dental Screening Dental Screen Date: 07/01/25 Did you have a dental visit in the last 12 months?: Yes Did you have a dental problem in the last 6 months where you did not have access to dental care?: No Was dental information given to patient?: Patient has dentist HPI bp HPI Details Patient comes in today for his follow up visit States that he continues to experience recurrent cramping (pain) in his legs often He has Rx for Magnesium oxide to take but it does not look like he has them now or is still taking them Adds that he has been experiencing frequent nasal drainage and on and off congestion, especially in his right nostril He denies any headaches or dizziness lately; denies any fever or sore throat Denies any chest pains, no increased SOB No nausea/vomiting, no abdominal pain No change in bowel habits noted He had his follow up labs done a few days ago - to discuss his results [facility] Medical History (Updated 07/07/25 @ 03:05 by Leander Stokes MD) Allergic rhinitis Liver cirrhosis Pure hypercholesterolemia Overweight (BMI 25.0-29.9) Constipation History of substance abuse Insomnia Depression GERD (gastroesophageal reflux disease) COPD (chronic obstructive pulmonary disease) Neuropathy Subdural hematoma (~05/2021) Smoker Bilateral flank pain Diabetes mellitus Arthritis Surgical History History of marzena hole surgery (~06/01/21) History of colonoscopy History of lung surgery Family History Father Diabetes Mother Diabetes CVD (cardiovascular disease) Social History Housing: Apartment Alcohol intake: former Patient Tobacco Use Status: Current everyday Tobacco user Tobacco use type: Cigarette Cigarette Packs Per Day: 0.25 Cigarettes Per Day: 3 e-Cigarette/Vaping Use: Never Used Second Hand Smoke Exposure: Yes service: No Current occupational status: disabled Cognitive needs: No Hearing needs: No Vision needs: Yes (Glasses) Questionnaire PHQ-9 Over the last 2 weeks, how often have you been bothered by any of the following problems? 1. Little interest or pleasure in doing things: not at all 2. Feeling down, depressed, or hopeless: not at all 3. Trouble falling or staying asleep, or sleeping too much: not at all 4. Feeling tired or having little energy: nearly every day 5. Poor appetite or overeating: not at all 6. Feeling bad about yourself - or that you are a failure or have let yourself or your family down: not at all 7. Trouble concentrating on things, such as reading the newspaper or watching television: not at all 8. Moving or speaking so slowly that other people could have noticed. Or the opposite - being so fidgety or restless that you have been moving around a lot more than usual: not at all 9. Thoughts that you would be better off or of hurting yourself in some way: not at all Total score: 3 Depression Screening Interpretation: Positive Depression Screening Follow-up: Follow-up Visit Requested Depression Screening Done: Yes 85663 - PHQ-9 Billing: Yes Source: Developed by Drs. Ethan Castañeda, Zully Hartman, Dillon Corrales and colleagues, with an educational rivas from [employer]. Thrive Questionnaire Date Thrive assessed: 07/01/25 I am a: Patient What is your living situation today?: I have a steady place to live Within the past 12 months, did the food you bought not last and you didn't have the money to get more?: Never true Within the past 12 months, did you worry whether your food would run out before you got money to buy more?: Never true Do you have trouble paying for medicines?: Yes Do you have trouble getting transportation to medical appointments?: Yes Do you have trouble paying your heating and electricity bill?: No Do you have trouble taking care of your child, family member or friend?: No Do you have trouble with day-to-day activities such as bathing, preparing meals, shopping, managing finances, etc.?: Yes Are you currently unemployed and looking for a job?: Yes Are you interested in more education?: Yes Please select the resources that you would like help with: None Currently or been in a relationship where the following occur: No concerns reported THRIVE Score: 1 AUDIT C Alcohol Use Questionnaire (AUDIT-C) 1. How often do you have a drink containing alcohol?: Never 3. How often do you have six or more drinks on one occasion?: Never Total Score: 0 Score Reviewed/Action Taken: Yes LEONIE-7 AMB Questionnaire LEONIE-7 Date LEONIE - 7 assessed: 07/01/25 Feeling nervous, anxious, or on edge: 0 = Not at all Not being able to stop or control worryin = Not at all Worrying too much about different things: 0 = Not at all Trouble relaxin = Nearly every day Being so restless that it is hard to sit still: 3 = Nearly every day Becoming easily annoyed or irritable: 0 = Not at all Feeling afraid as if something awful might happen: 0 = Not at all Total LEONIE-7 score (0-4 normal; 5-9 mild; 10-14 moderate; 15-21 severe): 6 Source: Developed by Drs. Ethan Castañeda, Zully Hartman, Dillon Corrales and colleagues, with an educational rivas from [employer]. Review of Systems Const Denies chills, Denies fatigue, Denies fever(s) and Denies headache(s) ENT Denies dysphagia, Denies dizziness, Denies otalgia, Denies headache(s), Reports nasal congestion (recurrent, especially on the left side), Denies neck pain, Denies odynophagia and Denies sore throat Card Denies chest pain, Denies palpitations and Denies dyspnea Resp Denies chest congestion, Reports cough (on and off; coughs up thick whitish phlegm at times), Denies dyspnea and Denies wheezing GI Denies abdominal pain, Denies constipation, Denies dysphagia, Denies heartburn, Denies diarrhea, Denies nausea, Denies odynophagia and Denies vomiting Denies difficulty urinating, Denies dysuria, Denies nocturia and Denies urinary frequency Musc Reports back pain (over the lower back - mild), Reports arthralgias (over multiple joints, including in both hips), Reports muscle cramps (recurrent, in both legs (see HPI)), Denies neck pain, Reports numbness and Reports tingling (occasional) Skin/Breast Denies rash Neuro Denies dizziness, Denies headache(s), Reports numbness, Reports tingling (occasional) and Reports paresthesias (over both feet, increasing) Psych Reports anxiety Endo Denies fatigue and Denies palpitations Aller/Immun Denies wheezing Physical exam (Primary Care) Vital Signs: Last Vital Signs Pulse 81 07/01/25 13:07 BP 132/70 07/01/25 13:07 Pulse Ox 97 07/01/25 13:07 Oxygen Delivery Method Room Air 07/01/25 13:07 BMI result Body Mass Index 27.1 Tobacco/Smoking Status: Tobacco use Status Tobacco use date assessed 07/01/25 07/01/25 13:21 Patient Tobacco Use Status Current everyday Tobacco 07/01/25 13:21 Tobacco use type Cigarette 07/01/25 13:21 e-Cigarette/Vaping Use Never Used 07/01/25 13:21 PHQ-9: PHQ-9 Score PHQ-9: Total score 3 07/01/25 14:02 Depression Screening Interpretation: Positive Depression Screening Follow-up: Follow-up Visit Requested Thrive Assessment: Date of Thrive Assessment Date Thrive assessed 07/01/25 07/01/25 13:21 Currently or been in a relationship where the following occur: No concerns reported Const General: no acute distress and alert HENMT Ears: TM's normal bilaterally and EAC's normal Throat: Yes posterior oropharynx normal and Yes tonsils normal (no TP congestion) Neck Neck: Yes supple and No lymphadenopathy Thyroid: Thyroid normal Resp Auscultation: no crackles, no rales, no wheezes and diminished lung sounds (slightly) bilateral Cardio Rate: regular rate Rhythm: regular rhythm Heart sounds: no murmurs GI Palpation (GI): Soft to palpation and nontender Auscultation: normal bowel sounds General: Yes no CVA tenderness Back/Spine/Pelvis Back: no CVA tenderness Thoracic/Lumbar Spine: lumbar spinal tenderness (mild) Skin Rashes: no rashes Extrem General: Yes no clubbing, cyanosis or edema Right lower extremity: hip/thigh (mild) Details: tenderness Location: of the hip Left lower extremity: hip/thigh (mild) Details: tenderness Location: of the hip Results Reviewed Results Reviewed: Laboratory Tests 06/26/25 06/26/25 08:41 08:46 WBC 7.1 Hgb 14.3 Hct 42.0 Plt Count 108 L Sodium 135 Potassium 4.0 Creatinine 0.95 Estimated GFR > 60 Fasting Glucose 154 H Hemoglobin A1c % 7.1 H Calcium 9.4 Magnesium 1.8 AST 36 ALT 42 H Triglycerides 183 H Cholesterol 145 LDL Cholesterol, Calc 70 HDL Cholesterol 39 L Vitamin B12 721 25-OH Vitamin D Total 34.7 TSH 1.68 Ur Specific [place] 1.015 Urine Protein Negative Urine Glucose (UA) Negative Urine Blood Trace H Urine Nitrite Negative Ur Leukocyte Esterase Negative Hep C Viral Load <15 NOT DETECTED Hep C Viral Load Log <1.18 NOT DETECTED Coding Level of Care Code Est Pt Level 4 (79460) Diagnoses Pure hypercholesterolemia E78.00 Type 2 diabetes mellitus without complication, without long-term current use of insulin E11.9 Diabetes mellitus complication status: without complication Diabetes mellitus fci insulin use: without fci use Diabetes mellitus type: type 2 Chronic obstructive pulmonary disease, unspecified COPD type J44.9 COPD type: unspecified COPD Opacity of lung on imaging study R91.8 Alcoholic cirrhosis of liver without ascites K70.30 Ascites presence: without ascites Hepatic cirrhosis type: alcoholic cirrhosis Neuropathy G62.9 Multiple joint pain M25.50 Muscle cramps R25.2 Allergic rhinitis, unspecified seasonality, unspecified trigger J30.9 Allergic rhinitis trigger: unspecified Allergic rhinitis seasonality: unspecified Subdural hematoma S06.5X9A History of hepatitis C Z86.19 Constipation, unspecified constipation type K59.00 Constipation type: unspecified constipation type Insomnia, unspecified type G47.00 Insomnia type: unspecified Anxiety F41.9 Smoker F17.200 Overweight (BMI 25.0-29.9) E66.3 Additional Codes PHQ-9 - 10304 - PHQ-9 Billing: Yes ([id number]) Assessment & Plan Assessment & Plan (1) Pure hypercholesterolemia: Code(s): E78.00 - Pure hypercholesterolemia, unspecified Category: Medical Plan: Results of his labs done a few days ago reviewed and discussed with patient Reinforced low cholesterol diet Continue Rosuvastatin 5 mg QD He could not tolerate Atorvastatin 10 mg QD in the past due to side effects (increased generalized weakness) Will have him recheck his labs and fasting lipids in 4 months for follow up (2) Diabetes mellitus: Code(s): E11.9 - Type 2 diabetes mellitus without complications Category: Medical Qualifiers: Diabetes mellitus complication status: without complication Diabetes mellitus longwall headgate operator insulin use: without longwall headgate operator use Diabetes mellitus type: type 2 Qualified Code(s): E11.9 - Type 2 diabetes mellitus without complications Plan: His HgbA1c was at 7.1% on his recent labs (in-office HgbA1c was previously at 6.8% a few months ago) - goal is at least <7.0% His C-peptide level and LEONIE Ab also both came back normal - he is NOT insulin-requiring Reinforced diabetic diet Continue Metformin 500 mg BID and Tradjenta 5 mg QD (3) COPD (chronic obstructive pulmonary disease): Code(s): J44.9 - Chronic obstructive pulmonary disease, unspecified Category: Medical Qualifiers: COPD type: unspecified COPD Qualified Code(s): J44.9 - Chronic obstructive pulmonary disease, unspecified Plan: Continue Albuterol HFA 2 inhalations every 6 hours as needed Chest x-rays done back in August 2023 revealed that the previous mild right basilar opacity appears increased when compared with chest radiographs dating back to 08/29/2015. CT scan without intravenous contrast was recommended for further evaluation Chest CT done on 01/06/2024 revealed (+) multiple small pulmonary nodules are unchanged since 2019 CT scan and therefore benign. There are moderate emphysematous changes and also a cirrhotic appearing liver and cholelithiasis without cholecystitis (4) Opacity of lung on imaging study: Code(s): R91.8 - Other nonspecific abnormal finding of lung field Category: Medical Plan: Chest CT done in December 2023 revealed (+) multiple small pulmonary nodules are unchanged since 2019 CT scan and therefore benign. There are also moderate emphysematous changes noted on his chest CT Patient has been reassured of these findings (5) Liver cirrhosis: Code(s): K74.60 - Unspecified cirrhosis of liver Category: Medical Qualifiers: Ascites presence: without ascites Hepatic cirrhosis type: alcoholic cirrhosis Qualified Code(s): K70.30 - Alcoholic cirrhosis of liver without ascites Plan: (+) Hx of liver cirrhosis secondary to alcohol abuse and hepatitis C His hepatitis C was treated back in 2015 and patient states that he has been completely abstinent for over 4 years now (since 2019) Repeat abdominal US done back in July 2024 revealed findings indicative of a high elastography value suggestive of advanced chronic liver disease Follow up with GI (Dr. Ricardo) as scheduled (6) Neuropathy: Code(s): G62.9 - Polyneuropathy, unspecified Category: Medical Plan: NCV & EMG done back on 12/29/2017 revealed (+) mild sensory and motor peripheral neuropathy; he was sent for repeat studies a couple of years ago but he canceled his appointment as he did not want to get this repeated Continue Gabapentin 600 mg TID His B12, ESR, CRP, TSH were all normal when checked at the time Will consider repeating NCV & EMG if his symptoms persist or get worse (7) Multiple joint pain: Code(s): M25.50 - Pain in unspecified joint Category: Medical Plan: X-rays of his left shoulder done in December 2023 revealed (+) mild osteoarthritic changes in the acromioclavicular and glenohumeral joints as well as faint linear calcification adjacent to the humeral head suggestive of tendinitis Continue Nabumetone 500 mg BID PRN He was referred to rheumatology for further evaluation and management of his joint pains and he was scheduled to be seen for initial visit back in October 2022 but it appears that he never went for his appt Will revisit rheumatology referral later on when patient agrees to it again (8) Muscle cramps: Code(s): R25.2 - Cramp and spasm Category: Medical Plan: Continue Mag-Ox 400 mg BID PRN (9) Allergic rhinitis: Code(s): J30.9 - Allergic rhinitis, unspecified Category: Medical Qualifiers: Allergic rhinitis trigger: unspecified Allergic rhinitis seasonality: unspecified Qualified Code(s): J30.9 - Allergic rhinitis, unspecified Plan: Will start patient on Fluticasone 50 mcg nasal spray QD PRN (10) Subdural hematoma: Onset Date: ~05/2021 Comment: right-sided; S/P [place] hole drainage by Dr. Elmore on 06/01/2021 Code(s): S06.5X9A - Traumatic subdural hemorrhage with loss of consciousness of unspecified duration, initial encounter Category: Medical Plan: This is resolved and patient currently has very little residual neurologic deficits (11) History of hepatitis C: Comment: S/P treatment Code(s): Z86.19 - Personal history of other infectious and parasitic diseases Category: Medical Plan: S/P Tx Hepatitis C viral load rechecked in August 2022 came out negative Follow up with GI as scheduled (12) Constipation: Code(s): K59.00 - Constipation, unspecified Category: Medical Qualifiers: Constipation type: unspecified constipation type Qualified Code(s): K59.00 - Constipation, unspecified Plan: He is encouraged again on increased oral fluids and dietary fiber Continue Movantik 25 mg QD PRN (13) Insomnia: Code(s): G47.00 - Insomnia, unspecified Category: Medical Qualifiers: Insomnia type: unspecified Qualified Code(s): G47.00 - Insomnia, unspecified Plan: Sleep hygiene reinforced Continue Trazodone 100 mg Q HS PRN (14) Anxiety: Code(s): F41.9 - Anxiety disorder, unspecified Category: Medical Plan: Continue Hydroxyzine 25 mg TID PRN (15) Smoker: Code(s): F17.200 - Nicotine dependence, unspecified, uncomplicated Category: Social Hx Plan: Patient is counseled again on complete smoking cessation He has tried and failed on Nicotine patches recently Continue Varenicline QD as instructed (16) Overweight (BMI 25.0-29.9): Code(s): E66.3 - Overweight Category: Medical Plan: Reinforced diet/exercise as tolerated/lose weight Plan Follow up in 4 months Orders: Orders Complete Blood Count Auto Diff 4 Months D64.9 - Anemia, unspecified Lipid Panel 4 Months E78.00 - Pure hypercholesterolemia, unspecified Magnesium 4 Months E83.42 - Hypomagnesemia Hemoglobin A1c 4 Months E11.9 - Type 2 diabetes mellitus without complications Comprehensive [place]. Panel Fast 4 Months E78.00 - Pure hypercholesterolemia, unspecified Microalbumin, Random (w Creat) 4 Months E11.9 - Type 2 diabetes mellitus without complications TSH reflex Free T4 4 Months E78.00 - Pure hypercholesterolemia, unspecified UA CC w/rflx Micro + Cult 4 Months R30.0 - Dysuria Vitamin D 25-OH Total 4 Months E55.9 - Vitamin D deficiency, unspecified Vitamin B12 and Folate 4 Months E53.8 - Deficiency of other specified B group vitamins Medications: New fluticasone propionate 50 mcg/actuation administer into each nostril 2 sprays intranasal DAILY PRN 16 grams 5RF allergy symptoms 30 days Changed From magnesium oxide 400 mg PO BID 60 caps 3RF To magnesium oxide 400 mg PO BID 60 caps 5RF leg/muscle cramps 30 days
[2025-07-01 13:07] VITALS: BP 132/70; PULSE 81; O2SAT 97; BMI 27.1
== END 2025-07-01 13:55 | disposition home or self-care (01) ==
LOC: HO.HMCH 13:05
PROVIDERS: PCP Internal Medicine; Visit Provider Internal Medicine
DX: E11.40 Type 2 diabetes mellitus with diabetic neuropathy, unspecified (principal); J44.9 Chronic obstructive pulmonary disease, unspecified; K70.30 Alcoholic cirrhosis of liver without ascites; S06.5X9A Traumatic subdural hemorrhage with loss of consciousness of unspecified duration, initial encounter; E78.00 Pure hypercholesterolemia, unspecified; R91.8 Other nonspecific abnormal finding of lung field; G62.9 Polyneuropathy, unspecified; M25.50 Pain in unspecified joint; R25.2 Cramp and spasm; J30.9 Allergic rhinitis, unspecified; Z86.19 Personal history of other infectious and parasitic diseases; K59.00 Constipation, unspecified; G47.00 Insomnia, unspecified; F41.9 Anxiety disorder, unspecified; F17.200 Nicotine dependence, unspecified, uncomplicated; E66.3 Overweight

== ENCOUNTER → 2025-07-01 13:04 | Outpatient (BNVA) | payer OTHER, SELFPAY | PROVIDERS: PCP Internal Medicine; Visit Provider Internal Medicine | DX: R25.2 Cramp and spasm (principal); E78.00 Pure hypercholesterolemia, unspecified; E11.9 Type 2 diabetes mellitus without complications; J44.9 Chronic obstructive pulmonary disease, unspecified; R91.8 Other nonspecific abnormal finding of lung field; K70.30 Alcoholic cirrhosis of liver without ascites; G62.9 Polyneuropathy, unspecified; M25.50 Pain in unspecified joint; J30.9 Allergic rhinitis, unspecified; K59.00 Constipation, unspecified; G47.00 Insomnia, unspecified; F41.9 Anxiety disorder, unspecified; F17.210 Nicotine dependence, cigarettes, uncomplicated; E66.3 Overweight; S06.5X9A Traumatic subdural hemorrhage with loss of consciousness of unspecified duration, initial encounter; Z68.27 Body mass index [BMI] 27.0-27.9, adult; Z86.19 Personal history of other infectious and parasitic diseases | CPT/HCPCS: 96127; 99212 ==